=== PATIENT | male | born 2000 | race Caucasian/White ===

== ENCOUNTER 2021-01-14 20:35 | Emergency (ER) | payer OTHER, SELFPAY ==
[2021-01-14 20:46] VITALS: BP 148/77; PULSE 99; RESP 22; TEMP 36.5; O2SAT 99
[2021-01-14 21:02] LABS: Basophils Absolute Auto 0.1 K/mm3 (0.0-0.1); Basophils Percent Auto 0.5 % (0.2-1.2); Hematocrit 45.3 % (42.0-52.0); Hemoglobin 15.7 g/dL (14.0-18.0); Immature Granulocyte Absolute 0.06 K/mm3 (0.00-0.031); Immature Granulocyte Percent A 0.5 % (0-0.5); Lymphocytes Absolute Auto 0.88 K/mm3 (0.9-3.2); Mean Corpuscular HGB Conc 34.7 g/dl (32-36); Mean Corpuscular Hemoglobin 28.8 pg (26-34); Mean Corpuscular Volume 83.1 fl (80-100); Mean Platelet Volume 9.4 fl (7.4-10.4); Monocytes Absolute Auto 0.5 K/mm3 (0.1-0.6); Monocytes Percent Auto 4.4 % (2.6-8.5); Neutrophils Absolute Auto 9.5 K/mm3 (1.3-6.7); Neutrophils Percent Auto 86.6 % (45.5-73.1); Platelet Count Result 267 k/mm3 (150-375); Red Blood Count 5.45 M/mm3 (4.6-6.20); Red Cell Distribution Width 12.6 % (11.5-14.5)
[2021-01-14 21:24] LABS: Alanine Aminotransferase 40 U/L (4-50); Albumin Level 5.3 g/dL (3.7-5.6); Alkaline Phosphatase 104 U/L (58-237); Anion Gap 18 mmol/L (8-16); Aspartate Amino Transferase 65 U/L (17-59); Bilirubin,Total 1.7 mg/dL (0.2-1.3); Blood Urea Nitrogen 14 mg/dL (8-21); Calcium 10.3 mg/dL (8.9-10.7); Carbon Dioxide 17 mmol/L (22-30); Chloride 104 mmol/L (98-107); Estimated CRCL calculation 129 ml/min; Estimated Glomerular Filt Rate > 60; Glucose 138 mg/dL (75-110); Lipase 55 U/L (23-300); Potassium 4.1 mmol/L (3.4-5.0); Sodium 139 mmol/L (134-143)
[2021-01-14 21:37] VITALS: BP 129/76; PULSE 95; TEMP 36.4; O2SAT 100
--- NOTE | 2021-01-14 21:41 | PC.NURSE ---
EDMD presented to bedside.
--- NOTE | 2021-01-14 21:43 | ECG_ITS ---
Measurements Intervals [place] Rate: 77 P: 4 IN: 123 QRS: 87 QRSD: 117 T: 61 QT: 397 QTc: 450 Interpretive Statements SINUS RHYTHM WITH MARKED SINUS ARRHYTHMIA INCOMPLETE RIGHT BUNDLE BRANCH BLOCK ST ELEVATION IN ANTEROLAT/INF LEADS- PROBABLY EARLY REPOLARIZATION BORDERLINE ECG Electronically Signed On 01-15-2021 6:53:43 CDT by Mansoor Carbajal D.O.
--- NOTE | 2021-01-14 21:44 | ED.NAVMDI ---
HPI - Nausea/Vomiting/Diarrhea General Chief complaint: Nausea/Vomiting/Diarrhea Stated complaint: Vomiting Time Seen by Provider: 01/14/21 21:37 Source: patient Mode of arrival: ambulatory Limitations: no limitations History of Present Illness HPI Narrative: This is a 20 year old male who presents with his father for evaluation of nausea and vomiting. PAtient states this episode started 3 hours ago while eating dinner. He states he is unable to stop dry heaving and vomiting. He denies abdominal pain, fever, or diarrhea. His father states patient was assessed for similar symptoms 1 month ago at an outside hospital. He states patient had labs and CT scan performed which were negative. He uses THC , and his father states he thinks it is anxiety related. During patient last ER evaluation 1 month ago , he was given Ativan and haldol which resolved his symptoms. He has been taking oral zofran and reglan prior to coming to ER with out improvement of his symptoms. MD elicited complaint: nausea and vomiting Related Data Allergies Allergy/AdvReac Type Severity Reaction Status Date / Time No Known Allergies Allergy Mild Unverified 06/26/09 16:50 Review of Systems Review of Systems: All systems reviewed & are unremarkable except as noted in HPI and below PMFSH Past Medical History Medical History (Updated 01/15/21 @ 01:20 by Baylee Obrien MD) No significant medical problems Surgical History Surgical History (Updated 01/14/21 @ 21:48 by Baylee Obrien MD) No pertinent past surgical history Social History Social History (Updated 01/14/21 @ 21:48 by Baylee Obrien MD) Substance use type: marijuana Gender identity (if verbalized by the patient): Male Exam Const: General: alert Orientation/consciousness: patient oriented x3 Other: patient actively dry heaving Eyes: EOM: EOMs intact bilaterally Resp: Effort & Inspection: normal respiratory effort and no retractions Auscultation: clear to auscultation bilaterally Cardio: Rate: regular rate Rhythm: regular rhythm Heart sounds: no murmurs GI: GI Palp: Yes Soft to palpation, No Tenderness to palpation present (GI) and No Guarding due to palpation present (GI) Auscultation: normal bowel sounds Skin: General skin exam: normal color Rashes: no rashes Neuro: General: patient oriented x3, moves all extremities and CN's II-XI intact bilaterally Psych: Mental Status: mental status grossly normal Affect: normal affect Course Reevaluation(s) Reevaluation #1: Patient states he feels better. he denies nausea, vomiting abdominal pain. He has been able to tolerate PO. Father is at bedside. He states patient has appointment next week with doctor for evaluation. Date: 01/15/21 Time: 01:18 Vital Signs Vital signs: Vital Signs Temperature 97.7 F 01/14/21 20:46 Pulse Rate 99 01/14/21 20:46 Respiratory Rate 22 H 01/14/21 20:46 Blood Pressure 148/77 H 01/14/21 20:46 Pulse Oximetry 99 01/14/21 20:46 Temperature 97.6 F 01/14/21 21:37 Pulse Rate 103 H 01/14/21 22:05 Respiratory Rate 20 01/14/21 22:05 Blood Pressure 126/71 01/14/21 22:05 Pulse Oximetry 100 01/14/21 22:05 MDM - Nausea/Vomiting/Diarrhea Lab Data Attestation: I reviewed the patient's lab results. Result diagrams: 01/14/21 20:57 01/14/21 20:57 Labs: Lab Results 01/14/21 01/14/21 Range/Units 20:57 20:57 WBC 11.0 H (4.5-10.0) K/mm3 RBC 5.45 (4.6-6.20) M/mm3 Hgb 15.7 (14.0-18.0) g/dL Hct 45.3 (42.0-52.0) % MCV 83.1 (80-100) fl MCH 28.8 (26-34) pg MCHC 34.7 (32-36) g/dl RDW 12.6 (11.5-14.5) % Plt Count 267 (150-375) k/mm3 MPV 9.4 (7.4-10.4) fl Immature Gran % (Auto) 0.5 (0-0.5) % Neut % (Auto) 86.6 H (45.5-73.1) % Lymph % (Auto) 8.0 L (18.3-44.2) % [place] % (Auto) 4.4 (2.6-8.5) % Eos % (Auto) 0.0 (0-4.4) % Baso % (Auto) 0.5 (0.2-1.2) % Lymph # (Aut
[2021-01-14 22:00] VITALS: BP 126/71; PULSE 107; RESP 18; O2SAT 100
[2021-01-14 22:05] VITALS: BP 126/71; PULSE 103; RESP 20; O2SAT 100
[2021-01-14] MEDS: LACTATED RINGERS 1,000 ML 999 ML IV CONT (22:06)
[2021-01-14] MEDS: LORazepam INJ (*CRX) 2 MG/ML VIAL 1 MG IV PUSH (22:06)
[2021-01-14] MEDS: PANTOPRAZOLE SODIUM IV 40 MG VIAL IV PUSH (22:07)
[2021-01-14] MEDS: CAPSAICIN 0.025% CREAM 60 GM TUBE 1 APPLIC TOPICAL (22:52)
[2021-01-14] MEDS: HALOPERIDOL LACTATE 5 MG/ML VIAL IV PUSH (22:53)
--- NOTE | 2021-01-15 00:36 | PC.NURSE ---
pt on cart sleeping. Dad remains at bedside.
--- NOTE | 2021-01-15 01:07 | PC.NURSE ---
pt attempted to urinate and states his unable to. Pt tolerated po challenge well. No emesis or nausea noted.
--- NOTE | 2021-01-15 02:11 | PC.NURSE ---
pt resting on cart in its lowest position and states he feels better. no complaints or concerns voiced at this time. Dad remains at bedside.
[2021-01-15 02:12] VITALS: BP 107/77; PULSE 78; RESP 17; TEMP 37.2; O2SAT 99
[2021-01-15 02:14] VITALS: BP 107/77; PULSE 78; RESP 17; TEMP 37.2; O2SAT 99
== END 2021-01-15 02:16 | disposition home or self-care (01) ==
PROVIDERS: Emergency Medicine; Emergency Provider General Practice; PCP Pediatrics
DX: R11.2 Nausea with vomiting, unspecified (principal); I45.10 Unspecified right bundle-branch block; R94.31 Abnormal electrocardiogram [ECG] [EKG]
CPT/HCPCS: 36415; 80053; 83690; 85025; 93005; 96361; 96374; 96375; 99284; A9270; C9113; J1630; J2060; J7120

== ENCOUNTER 2021-01-16 14:55 | Emergency (ER) | payer OTHER, SELFPAY ==
[2021-01-16] VITALS (8 sets, daily range): BP systolic 118–145; BP diastolic 64–100; PULSE 96–135; RESP 18–37; TEMP 36.3; O2SAT 96–100
[2021-01-16 15:21] LABS: Basophils Percent Auto 0.2 % (0.2-1.2); Eosinophils Percent Auto 0.1 % (0-4.4); Hematocrit 44.8 % (42.0-52.0); Hemoglobin 15.2 g/dL (14.0-18.0); Immature Granulocyte Absolute 0.03 K/mm3 (0.00-0.031); Immature Granulocyte Percent A 0.4 % (0-0.5); Lymphocytes Absolute Auto 1.32 K/mm3 (0.9-3.2); Lymphocytes Percent Auto 15.5 % (18.3-44.2); Mean Corpuscular HGB Conc 33.9 g/dl (32-36); Mean Corpuscular Hemoglobin 28.6 pg (26-34); Mean Corpuscular Volume 84.4 fl (80-100); Mean Platelet Volume 9.4 fl (7.4-10.4); Monocytes Absolute Auto 0.5 K/mm3 (0.1-0.6); Monocytes Percent Auto 5.3 % (2.6-8.5); Neutrophils Absolute Auto 6.7 K/mm3 (1.3-6.7); Neutrophils Percent Auto 78.5 % (45.5-73.1); Platelet Count Result 258 k/mm3 (150-375); Red Blood Count 5.31 M/mm3 (4.6-6.20); White Blood Count 8.5 K/mm3 (4.5-10.0)
[2021-01-16 15:44] LABS: Alanine Aminotransferase 32 U/L (4-50); Alkaline Phosphatase 97 U/L (58-237); Anion Gap 19 mmol/L (8-16); Bilirubin,Total 0.9 mg/dL (0.2-1.3); Blood Urea Nitrogen 10 mg/dL (8-21); Carbon Dioxide 15 mmol/L (22-30); Chloride 108 mmol/L (98-107); Estimated Glomerular Filt Rate > 60; Glucose 114 mg/dL (75-110); Lipase 70 U/L (23-300); Potassium 3.7 mmol/L (3.4-5.0); Sodium 142 mmol/L (134-143)
[2021-01-16 15:54] LABS: Aspartate Amino Transferase 54 U/L (17-59)
[2021-01-16] MEDS: HALOPERIDOL LACTATE 5 MG/ML VIAL 10 MG IV PUSH (16:27)
[2021-01-16] MEDS: diphenhydrAMINE HCl INJ 50 MG/ML VIAL 25 MG IV PUSH (16:44)
--- NOTE | 2021-01-16 16:50 | PC.NURSE ---
Called to patients phone per Dad, patient is sitting up in stretcher at this time. Patients jaw is clenched, red faced and diaphoretic with heart rate in 140s. Notified Dr. Mayer at nursing station gave verbal order for benadryl 25 [address] time[address] Pena called to room to assess patient after exiting another room, no other new orders at this time.
--- NOTE | 2021-01-16 17:22 | ED.NAVMDI ---
HPI - Nausea/Vomiting/Diarrhea General Chief complaint: Nausea/Vomiting/Diarrhea Stated complaint: nausea and vomiting Time Seen by Provider: 01/16/21 16:26 Source: patient and family Mode of arrival: ambulatory Limitations: clinical condition History of Present Illness HPI Narrative: 20-year-old male Presents with complaint of intractable vomiting Apparently there was one earlier visit for this several weeks ago elsewhere and another here the day before yesterday All have been associated with either smoking or using edible cannabis products, although their understanding from the last visit was more along the lines of gastritis Apparently he has been using this to manage stress associated with college at [employer], and he reports that he does not experience such unpleasant side effects 100% of the time, and he is aware of home remedies such as hot showers but has not tried them After being discharged in the wee hours of the morning he did again smoke some pot yesterday Today he is been retching dozens of times and really nothing is coming up here in the ED Related Data Home Medications Medication Instructions Recorded Confirmed Zoloft 01/16/21 Allergies Allergy/AdvReac Type Severity Reaction Status Date / Time No Known Allergies Allergy Mild Unverified 06/26/09 16:50 Review of Systems Review of Systems: All systems reviewed & are unremarkable except as noted in HPI and below Constitutional: Constitutional: Reports no additional constitutional complaints, Denies chills, Denies fever(s), Denies headache(s) and Reports weakness Eyes: Eyes: Reports no additional eye complaints and Denies change in vision ENT: Denies headache(s) and Denies sore throat Cardiovascular: Cardiovascular: Denies chest pain and Denies dyspnea Respiratory: Respiratory: Denies cough and Denies dyspnea Gastrointestinal: Gastrointestinal: Reports abdominal pain, Denies bloating, Denies constipation, Reports heartburn, Denies diarrhea, Reports nausea and Reports vomiting Genitourinary: Genitourinary: Denies dysuria and Denies urinary frequency Musculoskeletal: Musculoskeletal: Denies myalgias, Denies deformity, Denies arthralgias, Denies joint swelling and Denies numbness Integumentary/Breasts: Skin/Breast: Denies rash and Denies wounds Neurologic: Denies headache(s), Denies focal weakness and Denies numbness Psychiatric: Psychiatric: Reports anxiety Endocrine: Endocrine: Reports no additional endocrine complaints Hematologic/Lymphatic: Hematologic/Lymphatic: Reports no additional hematologic/lymphatic complaints Allergic/Immunologic: Allergic/Immunologic: Reports no additional allergic/immunologic complaints [facility] Past Medical History Medical History (Updated 01/16/21 @ 17:31 by Samir Pena MD) No significant medical problems Surgical History Surgical History (Updated 01/14/21 @ 21:48 by Baylee Obrien MD) No pertinent past surgical history Social History Social History (Updated 01/14/21 @ 21:48 by Baylee Obrien MD) Substance use type: marijuana Gender identity (if verbalized by the patient): Male Exam Const: General: cooperative and alert Nutritional Appearance: thin Orientation/consciousness: patient oriented x3 (alert) Other: Distressed HENMT: Head: normocephalic and atraumatic Ears: external ears normal General nose exam: no epistaxis Other: Experiencing a moderately bad dystonic reaction with grinding of his teeth and drooling Eyes: Conjunctivae: conjunctivae normal EOM: EOMs intact bilaterally Neck: Neck: supple and no JVD Chest: Chest palpation & inspection: normal inspection of the chest Resp: Effort & Inspection: not labored Auscultation: clear to auscultation bilaterally and other (BS =) Other: Hyperventilating Cardio: Rate: regular rate and tachycardic Rhythm: regular rhythm GI: Inspection: non-distended GI Palp: Yes Soft to palpation, No Tenderness to palpa
[2021-01-16] MEDS: LACTATED RINGERS 1,000 ML 999 ML IV CONT (17:37)
== END 2021-01-16 18:44 | disposition home or self-care (01) ==
PROVIDERS: Emergency Medicine; Emergency Provider Emergency Medicine; PCP Pediatrics
DX: R11.11 Vomiting without nausea (principal); F12.10 Cannabis abuse, uncomplicated; R06.4 Hyperventilation; G24.09 Other drug induced dystonia
CPT/HCPCS: 36415; 80053; 83690; 85025; 96361; 96374; 96375; 99284; J1200; J1630; J7120

== ENCOUNTER 2021-01-17 12:29 | Inpatient (IN) | payer OTHER, SELFPAY ==
[2021-01-17] VITALS (13 sets, daily range): BP systolic 93–144; BP diastolic 35–116; PULSE 93–153; RESP 16–43; TEMP 36.7–36.9; O2SAT 94–99; BMI 21.4
--- NOTE | ~2021-01-17 | XR_ITS ---
EXAMINATION: XR chest 1V portable INDICATION: Tachypnea, medication reaction TECHNIQUE: Portable AP chest at 1520 hours COMPARISON: 06/06/2009 FINDINGS: The lungs are free of acute opacities. There is no pleural effusion or pneumothorax. The ca rdiomediastinal silhouette is normal. Old right-sided rib fractures are noted. IMPRESSION: 1. No acute cardiopulmonary abnormality. Reviewed, dictated and finalized at location A.
--- NOTE | 2021-01-17 12:48 | ECG_ITS ---
Measurements Intervals [place] Rate: 129 P: 82 CO: 120 QRS: 84 QRSD: 122 T: 63 QT: 287 QTc: 420 Interpretive Statements SINUS TACHYCARDIA INCOMPLETE RIGHT BUNDLE BRANCH BLOCK PEAKED T WAVES- CONSIDER HYPERKALEMIA OR ISCHEMIA BASELINE WANDER- II, III, AVL, AVF ABNORMAL ECG Electronically Signed On 01-17-2021 13:53:18 CDT by Mansoor Carbajal D.O.
--- NOTE | 2021-01-17 12:49 | ED.PSYCH ---
HPI - Psych General Chief Complaint: Allergic Reaction Stated Complaint: reaction to haldol Time Seen by Provider: 01/17/21 12:41 History of Present Illness HPI Narrative: 20 yo male w/ h/o CVS presents to the ED for a possible medication reaction. He wa seen here for nausea and vomiting. He was given haldol and ativan which has worked for him in the past. He had a reaction which responded to benadryl. He awoke this morning with involuntary contraction of all extremities and his trunk. This cause diffuse pain. No nausea, vomiting, fever, confusion. He usses canbis, denies any additional drugs. Related Data Home Medications Medication Instructions Recorded Confirmed Zoloft 01/16/21 Allergies Allergy/AdvReac Type Severity Reaction Status Date / Time No Known Allergies Allergy Mild Verified 01/17/21 12:47 Review of Systems Review of Systems: All systems reviewed & are unremarkable except as noted in HPI and below Constitutional: Constitutional: Denies chills and Denies fever(s) ENT: Reports system reviewed and no additional complaints, except as documented Cardiovascular: Cardiovascular: Denies chest pain Respiratory: Respiratory: Denies dyspnea Gastrointestinal: Gastrointestinal: Reports as per HPI Genitourinary: Genitourinary: Reports no additional male genitourinary complaints Musculoskeletal: Musculoskeletal: Reports as per HPI Neurologic: Reports as per HPI Psychiatric: Psychiatric: Reports anxiety [facility] Past Medical History Medical History Cyclical vomiting No significant medical problems Surgical History Surgical History No pertinent past surgical history Social History Social History Substance use type: marijuana Gender identity (if verbalized by the patient): Male Exam Const: Other: moderate distress. diaphoretic. uncomfortable Eyes: Pupils: Equal, round and reactive pupils present EOM: EOMs intact bilaterally Neck: Neck: normal visual inspection Chest: Chest palpation & inspection: normal inspection of the chest Resp: Effort & Inspection: tachypneic Auscultation: clear to auscultation bilaterally Cardio: Rate: tachycardic GI: GI Palp: Yes Soft to palpation and No Tenderness to palpation present (GI) Skin: General skin exam: normal color Wounds: no wounds Other: diaphoretic Neuro: General: patient oriented x3 and moves all extremities Speech: normal speech Extrem: Other: increased muscle tone throughout Course Vital Signs Vital signs: Vital Signs Temperature 36.8 C 01/17/21 12:39 Pulse Rate 135 H 01/17/21 12:39 Respiratory Rate 43 H 01/17/21 12:39 Blood Pressure 136/116 H 01/17/21 12:39 Pulse Oximetry 98 01/17/21 12:39 Temperature 36.7 C 01/17/21 12:50 Pulse Rate 104 H 01/17/21 19:27 Respiratory Rate 16 01/17/21 19:27 Blood Pressure 109/58 L 01/17/21 19:27 Pulse Oximetry 98 01/17/21 19:27 MDM - Psych MDM Narrative Medical decision making narrative: His symptoms resolve with treatment, but have returned each time and are enough to cause significant metabolic abnormalities. I will admit for observation. Discussed with Shira Differential Diagnosis Differential diagnosis: Likely other (Anxiety, dystonic reaction, sepsis, toxic ingestion) Medical Records Attestation: I reviewed the patient's medical records. Lab Data Attestation: I reviewed the patient's lab results. Result diagrams: 01/17/21 12:54 01/17/21 19:27 Labs: Lab Results 01/17/21 01/17/21 01/17/21 Range/Units 12:53 12:53 12:53 WBC (4.5-10.0) K/mm3 RBC (4.6-6.20) M/mm3 Hgb (14.0-18.0) g/dL Hct (42.0-52.0) % MCV (80-100) fl MCH (26-34) pg MCHC (32-36) g/dl RDW (11.5-14.5) % Plt Count (150-375) k/mm3 MPV (7
[2021-01-17] MEDS: LORazepam INJ (*CRX) 2 MG/ML VIAL 1 MG IV PUSH ×2 (12:58→17:26)
[2021-01-17] MEDS: MAGNESIUM SULF 2 GM/WATER 50ML 2 GM/50 ML BAG IVPB (12:58)
[2021-01-17] MEDS: SODIUM CHLORIDE 0.9% IV 1,000 ML 999 ML IV CONT ×3 (12:59→16:13)
[2021-01-17 13:01] LABS: Basophils Absolute Auto 0.1 K/mm3 (0.0-0.1); Basophils Percent Auto 0.5 % (0.2-1.2); Eosinophils Percent Auto 0.4 % (0-4.4); Hematocrit 48.7 % (42.0-52.0); Hemoglobin 15.8 g/dL (14.0-18.0); Immature Granulocyte Absolute 0.05 K/mm3 (0.00-0.031); Immature Granulocyte Percent A 0.5 % (0-0.5); Lymphocytes Absolute Auto 2.08 K/mm3 (0.9-3.2); Mean Corpuscular HGB Conc 32.4 g/dl (32-36); Mean Corpuscular Hemoglobin 28.9 pg (26-34); Mean Platelet Volume 9.5 fl (7.4-10.4); Monocytes Absolute Auto 0.5 K/mm3 (0.1-0.6); Monocytes Percent Auto 4.9 % (2.6-8.5); Neutrophils Absolute Auto 8.2 K/mm3 (1.3-6.7); Neutrophils Percent Auto 74.7 % (45.5-73.1); Platelet Count Result 297 k/mm3 (150-375); Red Blood Count 5.47 M/mm3 (4.6-6.20); Red Cell Distribution Width 13.1 % (11.5-14.5)
[2021-01-17 13:21] LABS: Anion Gap 24 mmol/L (8-16); Blood Urea Nitrogen 11 mg/dL (8-21); Calcium 10.2 mg/dL (8.9-10.7); Carbon Dioxide 16 mmol/L (22-30); Chloride 106 mmol/L (98-107); Estimated CRCL calculation 110 ml/min; Estimated Glomerular Filt Rate > 60; Glucose 139 mg/dL (75-110); Sodium 146 mmol/L (134-143)
[2021-01-17 14:00] LABS: Potassium 4.7 mmol/L (3.4-5.0)
[2021-01-17] MEDS: diphenhydrAMINE HCl INJ 50 MG/ML VIAL IV PUSH (14:29)
--- NOTE | 2021-01-17 14:29 | PC.NURSE ---
pt breathing 54 times a min. encouraged to slow breathing. body tense. father holding pt hand. benadryl given as ordered. resp at bedside to draw abgs.
[2021-01-17 14:34] LABS: Base Excess ABG -16.6 mEq/l (+/-2.0); Fractional Inspired Oxygen 21 %; HCO3 ABG 10.6 mEq/l (22.0-26.0); Oxygen Content ABG 21.3 %vol (16.0-22.0); Oxygen Saturation ABG 97.5 % (95.0-100.0); Oxyhemoglobin 96.6 % THb (90.0-100.0); PCO2 ABG 29.9 mmHg (35.0-45.0); PO2 ABG 121.5 mmHg (80.0-100.0); PO2 FiO2 Ratio Arterial Blood 5.79 %; Total Hemoglobin 15.6 g/dL (12.0-18.0)
[2021-01-17 14:35] LABS: pH ABG 7.167 (7.350-7.450)
--- NOTE | 2021-01-17 15:02 | PC.NURSE ---
patient attempted to give urine sample at this time, patient declines straight cath
[2021-01-17 15:40] LABS: INR 1.1
[2021-01-17 15:41] LABS: Partial Thromboplastin Time 24.4 SECONDS (22.3-36.8)
[2021-01-17 15:43] LABS: CRP < 0.5 mg/dL (<1.0)
[2021-01-17 16:05] LABS: Add Urine Microscopic? YES; Appearance Urine Clear (Clear); Bilirubin Urine Negative (Negative); Blood Urine Negative (Negative); Color Urine Yellow (Yellow); Glucose Urine UA Negative (Negative); Ketones Urine 1+ mg/dL (Negative); Leukocyte Esterase Ur Negative LEU/UL (Negative); Mucus Urine Rare /lpf; Nitrate Urine Negative (Negative); Protein Urine 2+ mg/dL (Negative); RBC Urine 0-2 /hpf (0-2); Specific Grav Ur 1.019 (1.001-1.035); Urobilinogen Urine Negative mg/dL (<2.0); WBC Urine 0-3 /hpf
[2021-01-17 16:09] LABS: Lactic Acid Reflex 3.4 mmol/L (0.7-2.1)
[2021-01-17 16:10] LABS: Ethanol < 10 mg/dL (<10)
[2021-01-17 16:15] LABS: Amphetamine Screen Urine Negative (Negative); Barbiturate Screen Urine Negative (Negative); Benzodiazepines Screen Urine Negative (Negative); Cannabinoid Screen Urine Positive (Negative); Cocaine Screen Urine Negative (Negative); Methadone Screen Urine Negative (Negative); Opiate Screen Urine Negative (Negative); Phencyclidine Screen Urine Negative (Negative)
--- NOTE | 2021-01-17 16:25 | PC.NURSE ---
called Nirmal gandhi, added on (for the third time) the Salic and Acetamin, 1626. Said they would run it off tube used for etOH
[2021-01-17 16:34] LABS: Acetaminophen < 10 ug/mL (10-30); Salicylate < 1.0 mg/dL (2-20)
--- NOTE | 2021-01-17 17:50 | PC.NURSE ---
called chemistry @0732 to add mg
[2021-01-17 17:59] LABS: Magnesium 2.8 mg/dL (1.6-2.3)
--- NOTE | 2021-01-17 18:05 | PC.NURSE ---
called Nirmal gandhi, asked him to unreceive the CK and MG that were accidently scanned (the ones we had called about earlier). He said the MG was already running and he would add on the CK. The TSH Reflex has been sent down. Will call about new add ons momentarily.
--- NOTE | 2021-01-17 18:30 | PM.IMHP ---
H&P: HPI History of Present Illness Date/Time: 01/17/21 18:30 Chief Complaint: Concerns for a reaction to Haldol. Narrative: This is a 20-year-old male with anxiety who presented to the emergency department earlier today with his father with concerns for a reaction to Haldol. This will be his 3rd trip to the emergency department in the last 3 days. He was seen in the emergency department on the and with complaints of nausea and vomiting. Apparently he had been seen at an outside facility 1 month prior to these visits under similar circumstances and was told that his THC use was probably a contributing factor. He was given Ativan and Haldol which resolved his symptoms and he was given both of those during these 2 visits with improvement. However last night he reportedly had a dystonic reaction after receiving Haldol with grinding of his teeth with severe muscle cramps and uncontrollable muscle movements. Symptoms subsided after receiving IV Benadryl and he was able to be discharged home. He awoke this morning and has had intermittent involuntary contractions of his extremities and trunk that is causing him quite a bit of pain. During my interview he has intermittent episodes where he seems to contract the muscles of his extremities and trunk to the point where he becomes diaphoretic and he starts to hyperventilate thereafter. I am able to instruct him to slow down his breathing and relax with improvement in his symptoms. He has never had similar symptoms in the past and has no history of seizures. Aside from vaping THC he denies drug use and any other ingestions. No fever, chills, sweats, paranoia, confusion, focal weakness, auditory visual changes, paresthesias, chest pain, or shortness of breath. He is not currently having any nausea and denies emesis today. Of note he was started on sertraline 150 milligrams daily about 3 weeks ago and has an upcoming appointment with the psychiatrist and therapist for his anxiety. Up until the sertraline was added to his regimen, he was using THC exclusively for his anxiety. Review of Systems Review of Systems: Narrative: Twelve systems were reviewed with pertinent positives and negatives as per HPI. No sinus congestion, rhinorrhea, otalgia, or odynophagia. He denies headache and neck ache. No chest pain, pleuritic pain, or palpitations. He will occasionally have feelings of a racing heart. No hematemesis. He denies diarrhea and constipation. No dysuria. He has not had any tattoos or piercings. No recent cuts or puncture wounds. He is up-to-date on his tetanus shots. Except as documented, all other systems were reviewed and are negative. [facility] Past Medical History Medical History (Updated 01/17/21 @ 22:51 by Meghann Reed PA-C) Anxiety Bacterial meningitis (2001) At age 4 months. Tetrahydrocannabinol (THC) dependence Surgical History Surgical History (Updated 01/17/21 @ 22:39 by Meghann Reed PA-C) No history of previous surgery Family History Family History Mother Hyperlipemia Father Hyperlipemia Social History Social History (Updated 01/17/21 @ 22:41 by Meghann Reed PA-C) Social History: Surrogate decision maker: Donovan Chandler, father. Code status: Full code. Smoking status: Current every day smoker Tobacco type: e-cigarettes/vaping Alcohol intake: current Drinks per week: 4 Substance use: current Substance use type: marijuana and other Other substance usage details: Vapes Delta 9 THC for several weeks, previously used Delta 8 THC. Last use: 01/16/2021 Additional living arrangements comments: The patient lives in [place] with his family. He is a student at [employer]. Additional occupation/education comments: Student at [employer]. Gender identity (if verbalized by the patient): Male Spiritual care concerns: No Meds Home Medications and All
[2021-01-17 18:31] LABS: Creatine Kinase 418 U/L (55-170)
--- NOTE | 2021-01-17 18:32 | PC.NURSE ---
called labNicholas, added on PT INR PTT and Hepatic 183
[2021-01-17 18:47] LABS: Partial Thromboplastin Time 25.5 SECONDS (22.3-36.8); Prothrombin Time 13.9 Seconds (11.1-14.7)
[2021-01-17 18:55] LABS: Reflex Lactic Acid Yes or No Add Lactic
[2021-01-17 19:09] LABS: Thyroid Stimulating Hormone Reflex 0.956 uIU/mL (0.465-4.68)
[2021-01-17 19:13] LABS: Alanine Aminotransferase 28 U/L (4-50); Albumin Level 4.6 g/dL (3.7-5.6); Alkaline Phosphatase 88 U/L (58-237); Aspartate Amino Transferase 48 U/L (17-59); Bilirubin,Total 0.5 mg/dL (0.2-1.3)
[2021-01-17 19:41] LABS: Alveolar/Arterial O2 Gradient 22.5 mmHg; Base Excess ABG -3.7 mEq/l (+/-2.0); Carboxyhemoglobin 0.3 % THb (0-2.0); Fractional Inspired Oxygen 21 %; HCO3 ABG 20.8 mEq/l (22.0-26.0); Methemoglobin ABG 0.5 %THb (0-1.5); Oxygen Saturation ABG 96.2 % (95.0-100.0); Oxyhemoglobin 95.1 % THb (90.0-100.0); PO2 ABG 84.1 mmHg (80.0-100.0); Reduced Hemoglobin 4.1 %THb (0-5.0); Total Hemoglobin 13.4 g/dL (12.0-18.0)
[2021-01-17 19:42] LABS: Device ROOM AIR; Modified Allen's Test Pass; Site Drawn RIGHT RADIAL
[2021-01-17 19:47] LABS: Lactic Acid Reflex 0.9 mmol/L (0.7-2.1)
[2021-01-17 19:48] LABS: Anion Gap 9 mmol/L (8-16); Blood Urea Nitrogen 9 mg/dL (8-21); Calcium 8.2 mg/dL (8.9-10.7); Carbon Dioxide 22 mmol/L (22-30); Chloride 110 mmol/L (98-107); Estimated CRCL calculation 122 ml/min; Estimated Glomerular Filt Rate > 60; Glucose 79 mg/dL (75-110); Potassium 3.5 mmol/L (3.4-5.0); Sodium 141 mmol/L (134-143)
--- NOTE | 2021-01-17 21:57 | ADMIMU ---
This patient, Genny Chandler, was admitted to IMU status, and placed in Intensive Care Unit-1 at 2140 on 01/17/2021 . Patient/family oriented to hospital policies and general routines including ID bracelet, bed and alarms, visiting hours, pain management, procedures, bathroom and other care routines, personal items, smoking policy, room service/diet, and visiting hours. Valuables list has been completed. Information on how to activate the Rapid Response Team has been discussed. Patient/Family are encouraged to report perceived risks to care and to ask questions if they do not understand what they are told or what they should do.
[2021-01-17] MEDS: diazePAM (*CRX) 5 MG TABLET PO (23:54)
[2021-01-17] MEDS: LACTATED RINGERS 1,000 ML 100 ML IV CONT (23:54)
[2021-01-18] VITALS (7 sets, daily range): BP systolic 113–127; BP diastolic 64–83; PULSE 59–88; RESP 16–20; TEMP 36.2–36.8; O2SAT 96–100
[2021-01-18 05:21] LABS: Hematocrit 40.5 % (42.0-52.0); Hemoglobin 13.2 g/dL (14.0-18.0); Mean Corpuscular HGB Conc 32.6 g/dl (32-36); Mean Corpuscular Hemoglobin 28.8 pg (26-34); Mean Corpuscular Volume 88.2 fl (80-100); Mean Platelet Volume 9.6 fl (7.4-10.4); Platelet Count Result 184 k/mm3 (150-375); Red Blood Count 4.59 M/mm3 (4.6-6.20); Red Cell Distribution Width 12.8 % (11.5-14.5); White Blood Count 8.9 K/mm3 (4.5-10.0)
[2021-01-18 05:30] LABS: Lactic Acid Reflex 0.7 mmol/L (0.7-2.1)
[2021-01-18 05:37] LABS: Alanine Aminotransferase 23 U/L (4-50); Albumin Level 3.9 g/dL (3.7-5.6); Alkaline Phosphatase 66 U/L (58-237); Anion Gap 10 mmol/L (8-16); Aspartate Amino Transferase 49 U/L (17-59); Bilirubin,Total 0.8 mg/dL (0.2-1.3); Blood Urea Nitrogen 10 mg/dL (8-21); Calcium 8.7 mg/dL (8.9-10.7); Carbon Dioxide 22 mmol/L (22-30); Chloride 107 mmol/L (98-107); Creatine Kinase 1055 U/L (55-170); Estimated CRCL calculation 124 ml/min; Estimated Glomerular Filt Rate > 60; Glucose 71 mg/dL (75-110); Magnesium 2.1 mg/dL (1.6-2.3); Potassium 3.7 mmol/L (3.4-5.0); Sodium 139 mmol/L (134-143)
[2021-01-18 06:09] LABS: Thyroid Stimulating Hormone Reflex 0.795 uIU/mL (0.465-4.68)
[2021-01-18 06:36] LABS: Glucose Point of Care 85 (65-105)
[2021-01-18] MEDS: diazePAM (*CRX) 5 MG TABLET PO ×3 (06:46→22:15)
[2021-01-18 08:00] LABS: Device ROOM AIR
[2021-01-18] MEDS: LACTATED RINGERS 1,000 ML 100 ML IV CONT ×2 (09:27→18:24)
--- NOTE | 2021-01-18 10:06 | WPDNEURCNPN ---
Assessment and Plan Assessment and plan (1) Tetrahydrocannabinol (THC) dependence: Code(s): F12.20 - Cannabis dependence, uncomplicated Status: Acute (2) Anxiety: Code(s): F41.9 - Anxiety disorder, unspecified Status: Acute Additional Plan Stable neurologically did well overnight on the medication all the pros and cons of drugs discussed with him in front of his mother no further intervention as for the Neurology is concerned necessary Consult date: 01/18/21 Time Seen: 10:30 HPI: Genny Chandler is a 20 year old male admitted to the hospital through the emergency room where he presented with his father with concerns for reaction to Haldol this will be his 3rd trip to the emergency department in the last 3 days he had been seen on and with complaints of nausea and vomiting had been seen at an outside facility 1 month prior to this visits under similar circumstances and was told that his THS THC was probably contributing factor he was given Ativan and Haldol which resolved his symptom and he was given both of those during these 2 visits with improvement as well however last night she reportedly had a dystonic reaction after receiving Haldol with grinding of his teeth severe muscle cramps and uncontrollable muscle movements symptomatology subsided after receiving IV Benadryl he was able to be discharged home he awoke in the morning and has severe muscle cramps and uncontrollable my muscle movements he was admitted to the hospital with at the time of admission by the hospital he was noted PMFSH Past Medical History Medical History Anxiety Bacterial meningitis (2001) At age 4 months. Tetrahydrocannabinol (THC) dependence Surgical History Surgical History No history of previous surgery Family History Family History Mother Hyperlipemia Father Hyperlipemia Social History Social History Social History: Surrogate decision maker: Donovan Chandler, father. Code status: Full code. Smoking status: Current every day smoker Tobacco type: e-cigarettes/vaping Alcohol intake: current Drinks per week: 4 Substance use: current Substance use type: marijuana and other Other substance usage details: Vapes Delta 9 THC for several weeks, previously used Delta 8 THC. Last use: 01/16/2021 Additional living arrangements comments: The patient lives in [place] with his family. He is a student at [employer]. Additional occupation/education comments: Student at [employer]. Gender identity (if verbalized by the patient): Male Spiritual care concerns: No Meds Home Medications and Allergies Home Medications Medication Instructions Recorded Confirmed Type sertraline [Zoloft] 150 mg PO DAILY 01/18/21 01/18/21 History Allergies Allergy/AdvReac Type Severity Reaction Status Date / Time haloperidol [From Haldol] Allergy Intermediate Muscle Verified 01/18/21 10:42 Spasms Vital Signs Vital Signs - 24 hr 01/17/21 12:39 01/17/21 12:50 01/17/21 13:41 Temperature 36.8 C 36.7 C Pulse Rate 135 H 153 H 95 Respiratory Rate 43 H 40 H 21 H Blood Pressure 136/116 H 144/65 H 96/35 L Pulse Oximetry 98 96 94 01/17/21 13:56 01/17/21 15:08 01/17/21 16:15 Temperature Pulse Rate 93 118 H 105 H Respiratory Rate 21 H 27 H 25 H Blood Pressure 93/35 L 107/48 L 109/50 L Pulse Oximetry 94 97 96 01/17/21 17:43 01/17/21 18:34 01/17/21 19:27 Temperature Pulse Rate 104 H 115 H 104 H Respiratory Rate 25 H 27 H 16 Blood Pressure 105/66 119/60 109/58 L Pulse Oximetry 98 96 98 01/17/21 21:23 01/17/21 21:45 01/17/21 21:50 Temperature 36.9 C Pulse Rate 101 H 102 H Respiratory Rate 18 24 H Blood Pressure 134/65 130/73 Pulse Oximetry 99 97 96 01/17/21 22:0
--- NOTE | 2021-01-18 10:32 | PC.NURSE ---
Spoke with Dr. French regarding patient having increase anxiety and panic feeling . New order for 0.25 PO Xanax PRN q8h for increased anxiety
[2021-01-18] MEDS: SERTRALINE HCL 50 MG TABLET 150 MG PO (10:37)
[2021-01-18] MEDS: ALPRAZolam (*CRX) 0.25 MG TABLET (10:38)
--- NOTE | 2021-01-18 10:41 | WPDINTPN ---
Progress Note: A&P Assessment and Plan (1) Metabolic acidosis: Code(s): E87.2 - Acidosis Status: Acute Assessment and Plan: Improved with rehydration bicarb is 22 today Lactate has normalized (2) Muscle spasm: Code(s): M62.838 - Other muscle spasm Status: Acute Assessment and Plan: Not sure what exactly the etiology is at this point. Acute dystonia secondary to haloperidol is a likely possibility. Patient also has history of synthetic marijuana use Presentation not consistent with serotonin syndrome or neuroleptic malignant syndrome. Patient was given Valium and started on IV fluids and symptoms have resolved at this time. Patient is normothermic and has no muscular rigidity Neurology's is consulted (3) Anxiety: Code(s): F41.9 - Anxiety disorder, unspecified Status: Acute Assessment and Plan: Patient was started on Valium 5 mg every 8 hours on admission and patient has done well and denies any complaints at this time Zoloft was resumed (4) Elevated creatine kinase: Code(s): R74.8 - Abnormal levels of other serum enzymes Status: Acute Assessment and Plan: Mild rhabdomyolysis. With CK and 1000s Continue IV fluids Recheck CK level in the morning (5) Tetrahydrocannabinol (THC) dependence: Code(s): F12.20 - Cannabis dependence, uncomplicated Status: Acute Assessment and Plan: Encouraged to avoid using synthetic THC Additional Plan SCD Subjective Date/time seen: 01/18/21 This morning patient states he feels better and denies any complaints today. He states that his symptoms have resolved and he slept well at night. He denies feeling anxious at this time or any nausea vomiting. He he told me that he is waiting for his breakfast arrive. He did admit to having suicidal ideation 1 month ago when he was having a panic episode but denies any suicide attempts. He also states that he does not feel suicidal at this time. Denies any homicidal ideation. He states he has being taking Zoloft for anxiety for last 5 years. He feels that he had a side effect from Haldol that he was given in the ER on Sunday. Patient is afebrile has stable vital signs overnight Review of Systems Review of Systems: All systems reviewed & are unremarkable except as noted in HPI and below Exam Narrative: Exam Narrative: General: Pt is alert awake and in NAD Lungs/Chest: Trachea central Clear BS B/L, No crackles or wheezing. Cardiac: RRR. Normal S1 S2. No murmurs Circulation: Pedal pulses are intact and symmetrical. Abdomen: Normal bowel sounds.. Soft. NT. ND. Extremities: No clubbing, cyanosis or edema. Warm : Witt in place Neurologic: Follows commands. Moves all 4 extremities PERRL no tremors no rigidity of muscles, extraocular muscles are intact, Skin: No Rash patient has some excoriation on his nasal bridge Objective Data Vital Signs Vital Signs: Vital Signs - 24 hr 01/17/21 12:39 01/17/21 12:50 01/17/21 13:41 Temperature 36.8 C 36.7 C Pulse Rate 135 H 153 H 95 Respiratory Rate 43 H 40 H 21 H Blood Pressure 136/116 H 144/65 H 96/35 L Pulse Oximetry 98 96 94 01/17/21 13:56 01/17/21 15:08 01/17/21 16:15 Temperature Pulse Rate 93 118 H 105 H Respiratory Rate 21 H 27 H 25 H Blood Pressure 93/35 L 107/48 L 109/50 L Pulse Oximetry 94 97 96 01/17/21 17:43 01/17/21 18:34 01/17/21 19:27 Temperature Pulse Rate 104 H 115 H 104 H Respiratory Rate 25 H 27 H 16 Blood Pressure 105/66 119/60 109/58 L Pulse Oximetry 98 96 98 01/17/21 21:23 01/17/21 21:45 01/17/21 21:50 Temperature 36.9 C Pulse Rate 101 H 102 H Respiratory Rate 18 24 H Blood Pressure 134/65 130/73 Pulse Oximetry 99 97 96 01/17/21 22:00 01/18/21 00:00 01/18/21 02:00 Temperature 36.8 C Pulse Rate 100 88 84 Respiratory Rate 20 Blood Pressure 127/83 Pulse Oximetry 96 01/18/21 04:00 01/18/21 06:00 01/18/21 08:00 Temperature 36.4 C 3
--- NOTE | 2021-01-18 13:13 | PC.NURSE ---
This patient, Genny Chandler, was transferred to [[id number] ] on 01/18/21 at 1305. Personal belongings sent with patient. Report given to [LUIS Motley @ [phone]]. Appropriate documentation sent with patient.
[2021-01-18] MEDS: NICOTINE (*PBKC) 14 MG PATCH 1 PATCH TRANSDERM (17:27)
[2021-01-18] MEDS: ALPRAZolam (*CRX) 0.25 MG TABLET PO (18:24)
[2021-01-18] MEDS: NICOTINE (*PBKC) 21 MG PATCH 1 PATCH TRANSDERM (21:34)
[2021-01-18] MEDS: MELATONIN 5 MG TABLET PO (23:36)
[2021-01-19 05:44] VITALS: BP 123/64; PULSE 83; RESP 17; TEMP 36.1; O2SAT 100
[2021-01-19] MEDS: LACTATED RINGERS 1,000 ML 100 ML IV CONT ×2 (05:45→16:09)
[2021-01-19] MEDS: diazePAM (*CRX) 5 MG TABLET PO ×3 (05:45→22:31)
[2021-01-19 05:56] LABS: Hematocrit 38.2 % (42.0-52.0); Mean Corpuscular Hemoglobin 28.9 pg (26-34); Mean Corpuscular Volume 84.9 fl (80-100); Mean Platelet Volume 9.6 fl (7.4-10.4); Platelet Count Result 180 k/mm3 (150-375); Red Cell Distribution Width 12.7 % (11.5-14.5)
[2021-01-19 06:06] LABS: Alanine Aminotransferase 26 U/L (4-50); Albumin Level 3.7 g/dL (3.7-5.6); Alkaline Phosphatase 56 U/L (58-237); Anion Gap 6 mmol/L (8-16); Aspartate Amino Transferase 53 U/L (17-59); Bilirubin,Total 0.5 mg/dL (0.2-1.3); Blood Urea Nitrogen 5 mg/dL (8-21); Carbon Dioxide 30 mmol/L (22-30); Chloride 107 mmol/L (98-107); Creatine Kinase 818 U/L (55-170); Estimated CRCL calculation 128 ml/min; Estimated Glomerular Filt Rate > 60; Glucose 87 mg/dL (75-110); Magnesium 1.7 mg/dL (1.6-2.3); Potassium 3.6 mmol/L (3.4-5.0); Sodium 143 mmol/L (134-143)
[2021-01-19 09:26] VITALS: RESP 18; O2SAT 100
[2021-01-19] MEDS: ALPRAZolam (*CRX) 0.25 MG TABLET PO ×2 (09:26→18:22)
[2021-01-19] MEDS: SERTRALINE HCL 50 MG TABLET 150 MG PO (09:26)
--- NOTE | 2021-01-19 11:34 | PM.IMPN ---
Progress Note: A&P Assessment and Plan (1) Elevated creatine kinase: Code(s): R74.8 - Abnormal levels of other serum enzymes Status: Acute Assessment and Plan: Continue fluids LR at 100ml/hr CK down to 818 from 1055 Trend CK Labs in the am I&Os Mobility Up to chair for meals Regular diet (2) Metabolic acidosis: Code(s): E87.2 - Acidosis Status: Acute Assessment and Plan: Bicarb reported to low at 10.6 on ABG upon admission ABG showed metabolic acidosis Probably from serve vomiting Problem is resolved and corrected Renal function and Bicarb are normal No reported nausea or vomiting. (3) Anxiety: Code(s): F41.9 - Anxiety disorder, unspecified Status: Acute Assessment and Plan: Continue home Zoloft Valium 5mg q8hr and Xanax 0.25 q8hr PRN Education about coping skills (4) Muscle spasm: Code(s): M62.838 - Other muscle spasm Status: Acute Assessment and Plan: Resolved (5) Tetrahydrocannabinol (THC) dependence: Code(s): F12.20 - Cannabis dependence, uncomplicated Status: Acute Assessment and Plan: patient has acute intoxication of cannabis explained to patient that he was overdosing on cannabis Information packet was given to patient patient instructed cessation Subjective Date/time seen: 01/19/21 11:34 patient is a 20-year-old male with a past medical history of anxiety and hyper emesis who presented to the ED on 01/17 with complaints nausea vomiting. Patient was given 5 of Haldol in the ED, and the next variance adverse reactions was sent to the ICU. all signs and symptoms of that adverse reaction has been resolved. Upon examination of this patient today he said that he is 100% and he feels way better than he has. Patient explained that he uses marijuana for anxiety control. Patient denies having any more episodes of nausea vomiting. Patient also denies chest pain, shortness of breath, abdominal pain, loss of appetite, numbness and tingling, headaches, syncope, weakness, fatigue, anxiety, or headache. The patient had a long conversation about his marijuana use. It was explained to him that marijuana cessation is best for him. Patient stated that he vapes THC which he gets from the dispensary in [place]. he explained that this type of THC that he purchases is 73% pure. it was explained to the patient that he was overdosing of marijuana. Patient denies smoking, but does vape. 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 and that majority of his friends smoke marijuana. After initial conversation I returned to the patient's room dad was at bedside information was given to the patient about acute marijuana intoxication. It was reiterated that this patient should consider cessation of any products that must be smoked. Plan of care was explained to the patient and to dad. CK is still elevated at 818 today. Re-evaluation of CK will be evaluated tomorrow possibility of discharge tomorrow. Both patient and dad verbalized understanding of plan of care all questions were answered. Review of Systems Review of Systems: All systems reviewed & are unremarkable except as noted in HPI and below Exam Const: General: cooperative, healthy appearing, comfortable, no acute distress, well developed, alert, awake and Physically active Nutritional Appearance: average body habitus and well nourished Orientation/consciousness: patient oriented x3 Limitations: no limitations HENMT: Head: normal to inspection Ears: hearing grossly normal bilaterally and external ears normal General nose exam: Normal external nose present, Normal nares present, Normal nasal mucous membranes and turbinates present and No nasal discharge present Face and sinus: normal facial exam Mouth: Yes Normal oral and palatal mucosa present, Yes lip normal, Yes tongue normal and
[2021-01-19] MEDS: MAGNESIUM SULF 2 GM/WATER 50ML 2 GM/50 ML BAG IVPB (13:18)
[2021-01-19 14:03] VITALS: BP 123/71; PULSE 85; RESP 16; TEMP 35.9; O2SAT 99
[2021-01-19 19:40] VITALS: BP 141/74; PULSE 84; RESP 18; TEMP 36.5; O2SAT 98
[2021-01-19] MEDS: NICOTINE (*PBKC) 21 MG PATCH 1 PATCH TRANSDERM (20:13)
[2021-01-20] MEDS: ALPRAZolam (*CRX) 0.25 MG TABLET PO ×2 (00:40→08:00)
[2021-01-20] MEDS: LACTATED RINGERS 1,000 ML 100 ML IV CONT ×2 (02:40→13:38)
[2021-01-20 05:25] VITALS: BP 143/74; PULSE 71; RESP 18; TEMP 36.1; O2SAT 100
[2021-01-20 05:56] LABS: Hematocrit 40.3 % (42.0-52.0); Hemoglobin 13.5 g/dL (14.0-18.0); Mean Corpuscular HGB Conc 33.5 g/dl (32-36); Mean Corpuscular Hemoglobin 28.7 pg (26-34); Mean Corpuscular Volume 85.6 fl (80-100); Mean Platelet Volume 9.6 fl (7.4-10.4); Platelet Count Result 181 k/mm3 (150-375); Red Blood Count 4.71 M/mm3 (4.6-6.20); Red Cell Distribution Width 12.4 % (11.5-14.5); White Blood Count 8.1 K/mm3 (4.5-10.0)
[2021-01-20 06:08] LABS: Alanine Aminotransferase 27 U/L (4-50); Alkaline Phosphatase 59 U/L (58-237); Anion Gap 5 mmol/L (8-16); Aspartate Amino Transferase 56 U/L (17-59); Bilirubin,Total 0.6 mg/dL (0.2-1.3); Blood Urea Nitrogen 6 mg/dL (8-21); Calcium 9.4 mg/dL (8.9-10.7); Carbon Dioxide 30 mmol/L (22-30); Chloride 105 mmol/L (98-107); Creatine Kinase 1398 U/L (55-170); Estimated CRCL calculation 127 ml/min; Estimated Glomerular Filt Rate > 60; Glucose 79 mg/dL (75-110); Magnesium 1.8 mg/dL (1.6-2.3); Potassium 3.4 mmol/L (3.4-5.0); Sodium 140 mmol/L (134-143)
[2021-01-20] MEDS: diazePAM (*CRX) 5 MG TABLET PO ×3 (06:21→22:48)
--- NOTE | 2021-01-20 07:11 | PM.IMPN ---
Progress Note: A&P Assessment and Plan (1) Elevated creatine kinase: Code(s): R74.8 - Abnormal levels of other serum enzymes Status: Acute Assessment and Plan: Continue fluids LR at 100ml/hr CK down to 818 from 1398 Trend CK Labs in the am I&Os Mobility Up to chair for meals Regular diet (2) Anxiety: Code(s): F41.9 - Anxiety disorder, unspecified Status: Acute Assessment and Plan: Continue home Zoloft Valium 5mg q8hr and increase Xanax 0.5mg q8hr PRN Lorazepam 0.25mg PO once Education about coping skills (3) Metabolic acidosis: Code(s): E87.2 - Acidosis Status: Acute Assessment and Plan: Bicarb reported to low at 10.6 on ABG upon admission ABG showed metabolic acidosis Probably from serve vomiting Problem is resolved and corrected Renal function and Bicarb are normal No reported nausea or vomiting. (4) Muscle spasm: Code(s): M62.838 - Other muscle spasm Status: Acute Assessment and Plan: Resolved (5) Tetrahydrocannabinol (THC) dependence: Code(s): F12.20 - Cannabis dependence, uncomplicated Status: Acute Assessment and Plan: patient has acute intoxication of cannabis explained to patient that he was overdosing on cannabis Information packet was given to patient patient instructed cessation Time Spent With Patient Time with patient: 25 - 35 minutes Subjective Date/time seen: 01/20/21 07:11 patient is an 20-year-old male with a past medical history of anxiety and hyperemesis who presented to the ED on 01/17 with complaints of nausea vomit. Patient had reported to the ED on 01/14, 01/15, and 01/16 with same complaint. Today patient is lying in bed, and expressing that he is having issues with being in the hospital. Patient stated that he is very anxious, and having problems with being away from his parents. Patient stated that he feels 100% better, and denies chest pain, shortness of breath, nausea, vomiting, abdominal pain, numbness and tingling, headache, weakness, fatigue, syncope, or falls. Patient does admit to being very anxious and is lying in bed having an emotional moment. Patient's CK this morning was 1398 which is up from yesterday 818. patient is very adamant about going home today, it was explained to him that might not be possible due to his lab work. I explained to the patient he has an 20 and I would like to keep him safe, and would try to get him out of the hospital as soon as I possibly could. will encourage patient to get out of bed and walk through the hallways. Patient was on the phone with his father, all questions were answered patient verbalized understanding will continue with current plan of care. had a conversation with the patient and his father today about his medical condition. Explained the reasoning for the patient having this stay with IV fluids in the hospital. Visiting hours have been extended for the parents of this patient for 1 hour earlier. went over the labs with the father of the patient. Will try hard to discharge patient tomorrow depending on the CK. Review of Systems Review of Systems: All systems reviewed & are unremarkable except as noted in HPI and below Exam Const: General: cooperative, healthy appearing, comfortable, no acute distress, well developed, alert, awake and Physically active Nutritional Appearance: average body habitus and well nourished Orientation/consciousness: patient oriented x3 Limitations: no limitations HENMT: Head: normal to inspection Ears: hearing grossly normal bilaterally and external ears normal General nose exam: Normal external nose present, Normal nares present, Normal nasal mucous membranes and turbinates present and No nasal discharge present Face and sinus: normal facial exam Mouth: Yes Normal oral and palatal mucosa present, Yes lip normal, Yes tongue normal and Yes mois
[2021-01-20] MEDS: MAGNESIUM SULF 2 GM/WATER 50ML 2 GM/50 ML BAG IVPB (07:58)
[2021-01-20] MEDS: POTASSIUM CHLORIDE 20 MEQ TABLET 40 MEQ PO (08:00)
[2021-01-20] MEDS: SERTRALINE HCL 50 MG TABLET 150 MG PO (08:01)
[2021-01-20 11:57] VITALS: O2SAT 99
[2021-01-20 14:40] VITALS: BP 104/79; PULSE 78; RESP 16; TEMP 36.7; O2SAT 97
[2021-01-20] MEDS: ALPRAZolam (*CRX) 0.5 MG TABLET PO (19:41)
[2021-01-20] MEDS: NICOTINE (*PBKC) 21 MG PATCH 1 PATCH TRANSDERM (21:00)
[2021-01-20 21:41] VITALS: BP 113/76; PULSE 81; RESP 16; TEMP 36.6; O2SAT 99
[2021-01-21] MEDS: LACTATED RINGERS 1,000 ML 100 ML IV CONT (01:10)
[2021-01-21] MEDS: diazePAM (*CRX) 5 MG TABLET PO ×2 (06:19→14:56)
[2021-01-21 06:21] LABS: Hematocrit 41.3 % (42.0-52.0); Hemoglobin 13.9 g/dL (14.0-18.0); Mean Corpuscular HGB Conc 33.7 g/dl (32-36); Mean Corpuscular Hemoglobin 28.5 pg (26-34); Mean Corpuscular Volume 84.6 fl (80-100); Mean Platelet Volume 9.6 fl (7.4-10.4); Platelet Count Result 205 k/mm3 (150-375); Red Blood Count 4.88 M/mm3 (4.6-6.20); Red Cell Distribution Width 12.9 % (11.5-14.5); White Blood Count 6.8 K/mm3 (4.5-10.0)
[2021-01-21 06:34] LABS: Alanine Aminotransferase 32 U/L (4-50); Albumin Level 4.2 g/dL (3.7-5.6); Alkaline Phosphatase 61 U/L (58-237); Anion Gap 6 mmol/L (8-16); Aspartate Amino Transferase 66 U/L (17-59); Bilirubin,Total 0.7 mg/dL (0.2-1.3); Blood Urea Nitrogen 10 mg/dL (8-21); Calcium 9.7 mg/dL (8.9-10.7); Carbon Dioxide 29 mmol/L (22-30); Chloride 105 mmol/L (98-107); Creatine Kinase 1554 U/L (55-170); Estimated CRCL calculation 133 ml/min; Estimated Glomerular Filt Rate > 60; Glucose 75 mg/dL (75-110); Magnesium 1.9 mg/dL (1.6-2.3); Potassium 3.9 mmol/L (3.4-5.0); Sodium 140 mmol/L (134-143)
[2021-01-21] MEDS: LACTATED RINGERS 1,000 ML 999 ML IV CONT ×3 (06:59→15:03)
[2021-01-21] MEDS: MAGNESIUM SULF 2 GM/WATER 50ML 2 GM/50 ML BAG IVPB (07:49)
[2021-01-21] MEDS: SERTRALINE HCL 50 MG TABLET 150 MG PO (08:26)
[2021-01-21] MEDS: ALPRAZolam (*CRX) 0.5 MG TABLET PO ×2 (08:27→15:48)
[2021-01-21 09:00] VITALS: BP 113/64; PULSE 84; RESP 16; TEMP 36.1; O2SAT 100
[2021-01-21] MEDS: LACTATED RINGERS 1,000 ML 200 ML IV CONT ×3 (11:07→21:30)
[2021-01-21 14:00] VITALS: BP 116/69; PULSE 85; RESP 16; TEMP 36.2; O2SAT 100
[2021-01-21 14:30] VITALS: BP 116/69; PULSE 85; RESP 16; TEMP 36.2; O2SAT 100
[2021-01-21 14:32] LABS: Creatine Kinase 1513 U/L (55-170)
[2021-01-21 15:51] LABS: Anion Gap 6 mmol/L (8-16); Blood Urea Nitrogen 11 mg/dL (8-21); Calcium 9.5 mg/dL (8.9-10.7); Carbon Dioxide 30 mmol/L (22-30); Chloride 105 mmol/L (98-107); Estimated CRCL calculation 151 ml/min; Estimated Glomerular Filt Rate > 60; Glucose 89 mg/dL (75-110); Sodium 141 mmol/L (134-143)
--- NOTE | 2021-01-21 16:00 | PC.NURSE ---
Patient's father spoke to RN in [facility] stating that patient did have a prior suicide attempt in September. Patient was asked about said attempt and states that he was under high stress and anxiety r/t finals at school and added this isn't like that . RN explained to patient that with prior history of standing on a ledge with suicide ideation and now with his statement r/t this admission that a risk is present and that it is recommended that he meet with crisis to identify healthy coping mechanisms r/t stress and anxiety. Patient's dad also verbalizes that he needs a psych consult .
--- NOTE | 2021-01-21 16:09 | P.PNIM_ITS ---
Progress Note: A&P Assessment and Plan (1) Elevated creatine kinase: Code(s): R74.8 - Abnormal levels of other serum enzymes Status: Acute Assessment and Plan: * Continue fluids LR at 200ml/hr * 2L LR bolus given * CK up from 1398 ->1554 ->1513 * Trend CK * Labs in the am * I&Os * Mobility * Up to chair for meals * Regular diet (2) Suicide: Qualifiers: Encounter type: initial encounter Qualified Code(s): X83.8XXA - Intentional self-harm by other specified means, initial encounter Code(s): X83.8XXA - Intentional self-harm by other specified means, initial encounter Status: Acute Assessment and Plan: * Patient told RN in the presence of his father that he would rather than stay here one more night. * Patient placed on suicide precautions * Paper scrubs * 1:1 observer * Will need crisis intervention * Will need psychological evaluation * transfer will need to be initiated * Not medically cleared (3) Anxiety: Code(s): F41.9 - Anxiety disorder, unspecified Status: Acute Assessment and Plan: * Continue home Zoloft * Valium 5mg q8hr and increase Xanax 0.5mg q8hr PRN * Education about coping skills (4) Metabolic acidosis: Code(s): E87.2 - Acidosis Status: Acute Assessment and Plan: * Bicarb reported to low at 10.6 on ABG upon admission * ABG showed metabolic acidosis * Probably from serve vomiting * Problem is resolved and corrected * Renal function and Bicarb are normal * No reported nausea or vomiting. (5) Muscle spasm: Code(s): M62.838 - Other muscle spasm Status: Acute Assessment and Plan: * Resolved (6) Tetrahydrocannabinol (THC) dependence: Code(s): F12.20 - Cannabis dependence, uncomplicated Status: Acute Assessment and Plan: * patient has acute intoxication of cannabis * explained to patient that he was overdosing on cannabis * Information packet was given to patient * patient instructed cessation Time Spent With Patient Time: Extended time with patient at bedside, result review, evaluation and documentation. Time with patient: Greater than 35 minutes Subjective Date/time seen: 01/21/21 15:09 patient is an 20-year-old male with a past medical history of anxiety and hyperemesis who presented to the ED on 01/17 with complaints of nausea vomit. Patient had reported to the ED on 01/14, 01/15, and 01/16 with same complaint. This morning's labs noted a CK of 1554. upon examination the patient stated that he was 100% better and would like to go home. patient stated that he has no other complaints or issues at this time. He did state that he was very anxious and he is ready to go home. At 3:00 p.m. this afternoon after his CK repeat of 1513 patient did state that he was going to psychosis he was unable to go home in the morning. Patient was very emotional, crying, unable to cope with having to stay tonight. Patient has since then told RN that he was going to leave to kill himself. According to RN he said he would rather than stay 1 more night here, His father was also present in the room when all this was happening. All the proper authorities and protocols have been carried out. Case management is also helping with the case. Patient admits to having insomnia at night. Patient denies chest pain, shortness of breath, nausea, vomiting, abdominal pain, numbness and tingling, headache, weakness
--- NOTE | 2021-01-21 16:09 | PM.IMPN ---
Progress Note: A&P Assessment and Plan (1) Elevated creatine kinase: Code(s): R74.8 - Abnormal levels of other serum enzymes Status: Acute Assessment and Plan: Continue fluids LR at 200ml/hr 2L LR bolus given CK up from 1398 ->1554 ->1513 Trend CK Labs in the am I&Os Mobility Up to chair for meals Regular diet (2) Suicide: Qualifiers: Encounter type: initial encounter Qualified Code(s): X83.8XXA - Intentional self-harm by other specified means, initial encounter Code(s): X83.8XXA - Intentional self-harm by other specified means, initial encounter Status: Acute Assessment and Plan: Patient told RN in the presence of his father that he would rather than stay here one more night. Patient placed on suicide precautions Paper scrubs 1:1 observer Will need crisis intervention Will need psychological evaluation transfer will need to be initiated Not medically cleared (3) Anxiety: Code(s): F41.9 - Anxiety disorder, unspecified Status: Acute Assessment and Plan: Continue home Zoloft Valium 5mg q8hr and increase Xanax 0.5mg q8hr PRN Education about coping skills (4) Metabolic acidosis: Code(s): E87.2 - Acidosis Status: Acute Assessment and Plan: Bicarb reported to low at 10.6 on ABG upon admission ABG showed metabolic acidosis Probably from serve vomiting Problem is resolved and corrected Renal function and Bicarb are normal No reported nausea or vomiting. (5) Muscle spasm: Code(s): M62.838 - Other muscle spasm Status: Acute Assessment and Plan: Resolved (6) Tetrahydrocannabinol (THC) dependence: Code(s): F12.20 - Cannabis dependence, uncomplicated Status: Acute Assessment and Plan: patient has acute intoxication of cannabis explained to patient that he was overdosing on cannabis Information packet was given to patient patient instructed cessation Time Spent With Patient Time: Extended time with patient at bedside, result review, evaluation and documentation. Time with patient: Greater than 35 minutes Subjective Date/time seen: 01/21/21 15:09 patient is an 20-year-old male with a past medical history of anxiety and hyperemesis who presented to the ED on 01/17 with complaints of nausea vomit. Patient had reported to the ED on 01/14, 01/15, and 01/16 with same complaint. This morning's labs noted a CK of 1554. upon examination the patient stated that he was 100% better and would like to go home. patient stated that he has no other complaints or issues at this time. He did state that he was very anxious and he is ready to go home. At 3:00 p.m. this afternoon after his CK repeat of 1513 patient did state that he was going to psychosis he was unable to go home in the morning. Patient was very emotional, crying, unable to cope with having to stay tonight. Patient has since then told RN that he was going to leave to kill himself. According to RN he said he would rather than stay 1 more night here, His father was also present in the room when all this was happening. All the proper authorities and protocols have been carried out. Case management is also helping with the case. Patient admits to having insomnia at night. Patient denies chest pain, shortness of breath, nausea, vomiting, abdominal pain, numbness and tingling, headache, weakness, fatigue, syncope, or falls. I did educate patient about the risk of going home before his CK was below 1000 including renal failure, all the way up to . I have consulted with my attending Dr. Hendricks on this patient. She agreed to the plan of care that was initiated, and provided further orders which were also carried out. Dr. Hendricks was also notified of the new Ck that was drawn this afternoon and to agree to that with the care plan of keeping the patient and checking
--- NOTE | 2021-01-21 17:10 | PCCCNOTE ---
Denied by KATHRYN per Marah
--- NOTE | 2021-01-21 17:11 | PCCCNOTE ---
Spoke with Crisis. They will be here tonight to evaluated patient
--- NOTE | 2021-01-21 17:25 | PC.NURSE ---
Patient to ICU per wheelchair. Report to LUIS Rascon.
--- NOTE | 2021-01-21 17:35 | PC.NURSE ---
1730-Pt. received in room ICU 4 from room 345 via wheelchair. Tarah SMITH took over care of patient. Pt. stable upon transfer. Pt.'s phone locked up in our safe per patient's request.
--- NOTE | 2021-01-21 18:48 | PC.NURSE ---
RN at bedside to administer xanax per MAR; ok to administer NOW per TORB from Greg Shaikh NP. Patient states I'd rather than be here another night . RN asked patient if he had any plans of self harm; patient replied, NO, I don't have a plan, but I'd rather be than to spend another night in this hospital. Patient presents as anxious, resistant to plan of care. Patient repeatedly states he suffers from PTSD from a previous hospital stay in [place]. Patient insists that he is here for admission through no fault of my own, it's because your ER doctors overdosed me! THERMAL INTELLIGENCE ANALYST had previously explained treatment to patient and identified the claim of overdose as a newly identified allergic reaction, however, patient still insists that he was overdosed. Patient expresses doubt in the care of his current hospitalist; repeatedly states that he has no confidence in the physicians at [facility]. RN explained the risks of the patient signing out AMA, as patient has mentioned his intent to do so. Patient states my mental health is more important to me than my kidneys ; I am leaving ; this place is causing me to have PTSD and my anxiety is high ; I have other things to do than be here . Nursing umbrella supervisor, care coordination, charge nurse, and security notified. Greg Shaikh notified. Patient was informed of the plan, resisted transfer and suicide precautions. Patient denies being suicidal at present, however, still presents as anxious. Plan to enforce suicide precautions and transfer to ICU with 09/03 supervision initiated.
[2021-01-21 19:45] VITALS: TEMP 36.6
--- NOTE | 2021-01-21 20:20 | PC.NURSE ---
Pt states that he is to be discharged home with papers and prescriptions once he has been cleared by Crisis. Explained to pt that hospital physicians have not medically cleared him to leave because of his elevated CK level. Pt states that his level is elevated because they overdosed me on haldolol in the ER. Explained to pt that the proper treatment for the elevated CK level would be for him to receive IVF. Pt states that he is not comfortable here because I have been told 10 different stories on what was going to happen. Marguerite, head charger called to pt's bedside. She explained the same thing to pt. Marguerite to update Dr. Hough and notify household appliance installer that pt would like to make a formal complaint.
--- NOTE | 2021-01-21 20:39 | PM.EVENT ---
Event Note Event Note Event Note: Nursing staff called to notify me that crisis is coming to evaluate the patient. If crisis does not feel the patient needs inpatient psychiatric care and if the patient has a safety contract in place the patient was demanding to be discharged from the hospital. On review of the patient's chart the patient's CK is still above 1500. I notify the nursing staff that if crisis felt the patient did not need inpatient psychiatric care and if the patient was still insistent upon leaving that he would have to leave the hospital AMA. The patient was stating that the daytime provider head promised him medications to go home with. I informed the nursing staff that if the patient left against medical advice that I would not prescribe any medications. I feel it is in the patient's best interest to remain in the hospital on IV fluid hydration to reduce the risk of complications of rhabdomyolysis.
--- NOTE | 2021-01-21 21:38 | PC.NURSE ---
Crisis at pt bedside.
--- NOTE | 2021-01-21 22:30 | PC.NURSE ---
stock worker wrote up safety plan with pt. She strongly urged pt to stay overnight for continuation of IV fluids. Pt states that he is not receiving medical treatment here. stock worker explained to pt that he will be leaving AMA. Pt states that he understands that. stock worker and pt called his parents on speaker phone to discuss her plans with them. George left pt bedside at [id number].
--- NOTE | 2021-01-21 22:38 | PC.NURSE ---
01/21/211999 Spoke with pt. Pt is frustrated. States that a woman in a white coat and glasses promised him that if crisis agreed with a safety contract the doctor would discharge him medications. Explained to him that i would speak to the night hospitalist but the information I received was that he was considered not medically stable so he would not be discharged. Pt stated that if that was the case he would sign out. I explained that if he choose to he would be leaving against medical advice. Pt states he has lost confidence and trust in this hospital and wants to pursue medical treatment elsewhere.
--- NOTE | 2021-01-21 22:40 | PC.NURSE ---
Tonya, fish house worker, at pt's bedside to hear pt concerns. Tonya also explained to pt, as did previous staff members, that he would be leaving AMA. Pt again states that he is not receiving medical care here and that he can be better cared for at home. Tonya discussed with pt his need to continue to drink fluids and to monitor for kidney issues, such as decreased or concentrated urine. Pt was instructed to seek out medical help if he develops any symptoms. Pt verbalized understanding.
--- NOTE | 2021-01-21 23:00 | PC.NURSE ---
Pt called his mother for a ride home. Pt was verbally instructed to increase his water intake when he gets home, monitor for renal symptoms, stay away from all forms of marijuana, and to follow up with his PCP. Pt verbalized understanding. DONNELL formed signed. Pt was escorted to [facility] at [id number] to wait for his ride.
--- NOTE | 2021-01-21 23:14 | PC.NURSE ---
01/21/212119 SPOKE WITH PATIENT FATHER, RODRÍGUEZ, WHO IS ALSO FRUSTRATED WITH CARE. STATES THEY HAVE BEEN GETTING DIFFERENT INFORMATION FROM EVERYONE AND CLAIMS THAT TWO DIFFERENT NURSES TOLD HIS SON IT WAS OK TO SMOKE POT IF HE EITHER DID GUMMIES OR CUT BACK. EXPLAINED TO HIM THAT I HAD A DISCUSSION WITH HIM AND REINFORCED THAT HE NEEDED TO STOP MARIJUANA COMPLETELY AND DRINK LOTS OF FLUIDS, ESPECIALLY WATER. FATHER ALSO EXPRESSES FRUSTRATION WITH THE ER AND BLAMES THEM FOR ADMIT. FATHER WAS INFORMED THAT I CANNOT SPEAK TO WHAT HAS HAPPENED IN THE PAST, ALTHOUGH I APOLOGIZED FOR ANY FRUSTRATION, BUT CAN ONLY HELP WITH WHAT IS HAPPENING NOW. FATHER STATES THAT A WOMEN TOLD THEM SHE WOULD ADVOCATE FOR DISCHARGE INSTRUCTIONS AND MEDICATIONS IF CRISIS AGREED TO A SAFETY CONTRACT. EXPLAINED TO FATHER THAT ALTHOUGH SHE CAN ADVOCATE FOR DISCHARGE, THE DOCTORS WILL ONLY DO WHAT THEY FEEL IS APPROPRIATE AND I HAVE SPOKEN TO THE NIGHT HOSPITALIST WHO DOES NOT FEEL WITH CURRENT CK LEVEL DISCHARGE IS APPROPRIATE. CRISIS HAS NOT SEEN PT YET AND ASSURED FATHER I WOULD CHECK TO SEE THEY WERE STILL COMING.
--- NOTE | 2021-01-21 23:30 | PC.NURSE ---
01/21/212239 SPOKE WITH PT WHO IS SIGNING OUT AMA. PT UNDERSTANDS CK LEVELS ARE ELEVATED AND CAN HARM HIS KIDNEYS. SUGGESTED HE NOT GO OUT IN THE HEAT, DO STRENUOUS EXERCISE, HE NEEDS TO DRINK LOTS OF WATER AND REITERATED DISCONTINUATION OF MARIJUANA COMPLETELY. PT STATES HE IS GOING TO GO SOMEWHERE ELSE WHERE HE CAN GET ADEQUATE CARE. PHONE RETURNED TO PT.
== END 2021-01-21 22:57 | disposition left against medical advice (07) | DRG 894 ==
LOC: ANHED 18:49 → ANHICU 21:01 → ANH3MED 01-18 13:16 → ANHICU 01-21 17:40 → ANH3MED 01-25 17:51 → ANHICU 01-25 17:51
PROVIDERS: Nurse Practitioner; Physician Assistant; Admitting Provider Family Medicine; Emergency Provider Emergency Medicine; PCP Pediatrics; Visit Provider Internal Medicine
DX: F12.229 Cannabis dependence with intoxication, unspecified (principal); E87.2 Acidosis; R45.851 Suicidal ideations; R74.8 Abnormal levels of other serum enzymes; M62.838 Other muscle spasm; F41.9 Anxiety disorder, unspecified; F17.290 Nicotine dependence, other tobacco product, uncomplicated; G47.00 Insomnia, unspecified; R11.15 Cyclical vomiting syndrome unrelated to migraine; Z86.61 Personal history of infections of the central nervous system; Z79.899 Other long term (current) drug therapy
CPT/HCPCS: 36415; 36600; 71045; 80048; 80053; 80076; 80307; 81001; 82375; 82550; 82805; 82948; 83050; 83605; 83735; 83930; 84443; 85025; 85027; 85610; 85730; 86140; 87040; 93005; 96360; 96361; 96365; 96366; 96375; 96376; 99285; A9270; G0378; J1200; J2060; J3475; J7030; J7120

== ENCOUNTER 2021-01-22 12:24 | Outpatient (CLI) | payer OTHER, SELFPAY ==
[2021-01-22 13:07] LABS: Creatine Kinase 1468 U/L (55-170)
== END 2021-01-22 12:25 | disposition home or self-care (01) ==
PROVIDERS: PCP Pediatrics; Visit Provider Pediatrics
DX: G24.01 Drug induced subacute dyskinesia (principal)
CPT/HCPCS: 36415; 82550

== ENCOUNTER 2021-01-23 15:25 | Outpatient (CLI) | payer OTHER, SELFPAY ==
[2021-01-23 15:53] LABS: Creatine Kinase 1160 U/L (55-170)
== END 2021-01-23 15:26 | disposition home or self-care (01) ==
LOC: ANHLAB 15:28
PROVIDERS: PCP Pediatrics; Visit Provider Pediatrics
DX: G24.01 Drug induced subacute dyskinesia (principal)
CPT/HCPCS: 36415; 82550

== ENCOUNTER 2021-12-22 13:01 | Emergency (ER) | payer OTHER, SELFPAY ==
[2021-12-22 13:15] VITALS: BP 139/89; PULSE 115; RESP 18; TEMP 36.7; O2SAT 100
[2021-12-22 13:31] LABS: Basophils Absolute Auto 0.1 K/mm3 (0.0-0.1); Basophils Percent Auto 0.5 % (0.2-1.2); Eosinophils Absolute Auto 0.2 K/mm3 (0-0.3); Eosinophils Percent Auto 1.1 % (0-4.4); Hematocrit 42.9 % (42.0-52.0); Hemoglobin 15.2 g/dL (14.0-18.0); Immature Granulocyte Absolute 0.16 K/mm3 (0.00-0.031); Immature Granulocyte Percent A 1.1 % (0-0.5); Lymphocytes Absolute Auto 2.21 K/mm3 (0.9-3.2); Lymphocytes Percent Auto 15.6 % (18.3-44.2); Mean Corpuscular HGB Conc 35.4 g/dl (32-36); Mean Corpuscular Hemoglobin 29.2 pg (26-34); Mean Corpuscular Volume 82.5 fl (80-100); Monocytes Absolute Auto 0.9 K/mm3 (0.1-0.6); Monocytes Percent Auto 6.6 % (2.6-8.5); Neutrophils Absolute Auto 10.6 K/mm3 (1.3-6.7); Neutrophils Percent Auto 75.1 % (45.5-73.1); Platelet Count Result 334 k/mm3 (150-375); Red Cell Distribution Width 12.8 % (11.5-14.5); White Blood Count 14.2 K/mm3 (4.5-10.0)
[2021-12-22 13:39] LABS: Mucus Urine Rare /lpf; RBC Urine 51-75 /hpf (0-2)
[2021-12-22 13:45] LABS: Appearance Urine Slightly Cloudy (Clear); Bilirubin Urine Negative (Negative); Blood Urine Negative (Negative); Color Urine Yellow (Yellow); Glucose Urine UA Negative (Negative); Ketones Urine 2+ mg/dL (Negative); Leukocyte Esterase Ur Negative LEU/UL (Negative); Nitrate Urine Negative (Negative); Protein Urine 1+ mg/dL (Negative); Urobilinogen Urine 0.2 mg/dL (<2.0); pH Urine 8.5 (5.0-9.0)
[2021-12-22 13:52] LABS: Add Urine Microscopic? YES; Budding Yeast Urine Present /hpf
[2021-12-22 14:00] LABS: Alanine Aminotransferase 42 U/L (4-50); Albumin Level 5.1 g/dL (3.5-5.1); Alkaline Phosphatase 78 U/L (38-126); Anion Gap 19 mmol/L (8-16); Aspartate Amino Transferase 50 U/L (17-59); Bilirubin,Total 1.2 mg/dL (0.2-1.3); Blood Urea Nitrogen 14 mg/dL (9-20); Calcium 9.4 mg/dL (8.4-10.2); Carbon Dioxide 13 mmol/L (22-30); Chloride 106 mmol/L (98-107); Estimated CRCL calculation 107 ml/min; Estimated Glomerular Filt Rate > 60; Glucose 163 mg/dL (65-110); Lipase 69 U/L (23-300); Potassium 3.4 mmol/L (3.4-5.0); Sodium 138 mmol/L (137-145)
[2021-12-22] MEDS: PROMETHAZINE HCL 25 MG/ML AMPUL 12.5 MG IV PUSH (15:38)
[2021-12-22] MEDS: SODIUM CHLORIDE 0.9% IV 1,000 ML 999 ML IV CONT (15:38)
[2021-12-22 15:43] VITALS: BP 144/100; PULSE 116; RESP 25; O2SAT 99
--- NOTE | 2021-12-22 17:38 | ED.NAVMDI ---
HPI - Nausea/Vomiting/Diarrhea General Chief complaint: Nausea/Vomiting/Diarrhea Stated complaint: vomiting Time Seen by Provider: 12/22/21 14:20 History of Present Illness HPI Narrative: Patient is a 21-year-old male who presents ER with nausea and vomiting. Patient has had dry heaving and retching throughout the day. He has history of cannabis cyclic vomiting syndrome. Unfortunately he uses cannabis habitually to help treat some PTSD and anxiety. Reports last night he rolled a blunt with some friends and smoked it. He has no chest pain or chest pressure. No abdominal discomfort. Merrily his persistent retching which is making him anxious. Related Data Home Medications Medication Instructions Recorded Confirmed sertraline [Zoloft] 150 mg PO DAILY 01/18/21 01/18/21 Allergies Allergy/AdvReac Type Severity Reaction Status Date / Time haloperidol [From Haldol] Allergy Intermediate Muscle Verified 01/18/21 10:42 Spasms Review of Systems Review of Systems: All systems reviewed & are unremarkable except as noted in HPI and below Constitutional: Constitutional: Denies chills, Denies fever(s) and Denies weakness ENT: Denies nasal congestion and Denies sore throat Gastrointestinal: Gastrointestinal: Denies abdominal pain, Denies diarrhea, Reports nausea and Reports vomiting Neurologic: Denies focal weakness and Denies numbness Psychiatric: Psychiatric: Reports anxiety and Denies depression [facility] Past Medical History Medical History (Updated 12/22/21 @ 17:39 by Vignesh De Leon MD) Anxiety Bacterial meningitis (2001) At age 4 months. Suicide Tetrahydrocannabinol (THC) dependence Surgical History Surgical History No history of previous surgery Family History Family History Mother Hyperlipemia Father Hyperlipemia Social History Social History Social History: Surrogate decision maker: Donovan Chandler, father. Code status: Full code. Smoking status: Current every day smoker Tobacco type: e-cigarettes/vaping Alcohol intake: current Drinks per week: 4 Substance use: current Substance use type: marijuana and other Other substance usage details: Vapes Delta 9 THC for several weeks, previously used Delta 8 THC. Last use: 01/16/2021 Additional living arrangements comments: The patient lives in [place] with his family. He is a student at [employer]. Additional occupation/education comments: Student at [employer]. Gender identity (if verbalized by the patient): Male Spiritual care concerns: No Exam Narrative: GENERAL: Well-appearing, well-nourished, and in no acute distress. HEAD: Normocephalic, atraumatic. EYES: PERRL and EOMI. ENT: Mucous membranes moist. CHEST: Clear to auscultation. No respiratory distress. HEART: Regular rate and rhythm. Normal peripheral pulses. ABDOMEN: Soft, nontender, nondistended. EXTREMITIES: Normal range of motion. No edema. NEURO: Alert and oriented x3. PSYCH: Normal mood and affect. Course Course Emergency Course: Nausea and vomiting stopped with Phenergan. Tolerating oral intake. Discussed the need to use cannabis in moderation and if he is purchasing from dispensary to take very limited doses such as a known dosage gummy or chocolate square. Is not recommended that he just take what ever he has some rolled into a blunt and smoke it with his friends. Discharge home. Vital Signs Vital signs: Vital Signs Temperature 98.1 F 12/22/21 13:15 Pulse Rate 115 H 12/22/21 13:15 Respiratory Rate 18 12/22/21 13:15 Blood Pressure 139/89 12/22/21 13:15 Pulse Oximetry 100 12/22/21 13:15 Temperature 98.1 F 12/22/21 13:15 Pulse Rate 100 12/22/21 18:07 Respiratory Rate 16 12/22/21 18:07 Blood Pressure 134/98 H 12/22/21 18:07 Pulse Oximetry 99
[2021-12-22 18:07] VITALS: BP 134/98; PULSE 100; RESP 16; O2SAT 99
== END 2021-12-22 18:10 | disposition home or self-care (01) ==
PROVIDERS: Emergency Medicine; Emergency Provider Emergency Medicine; PCP Pediatrics
DX: R11.2 Nausea with vomiting, unspecified (principal); F12.90 Cannabis use, unspecified, uncomplicated; F41.9 Anxiety disorder, unspecified; F43.10 Post-traumatic stress disorder, unspecified; F17.290 Nicotine dependence, other tobacco product, uncomplicated
CPT/HCPCS: 36415; 80053; 81001; 83690; 85025; 87086; 87088; 96361; 96374; 99284; J2550; J7030

== ENCOUNTER 2022-03-29 00:19 | Day surgery (SDC) | payer OTHER, SELFPAY ==
[2022-03-13 14:28] VITALS: BMI 28.8
[2022-03-29 08:36] VITALS: BP 129/91; PULSE 98; RESP 20; TEMP 36.4; O2SAT 100; BMI 31.4
[2022-03-29] MEDS: LACTATED RINGERS 1,000 ML 150 ML IV CONT (08:43)
--- NOTE | 2022-03-29 08:44 | WPDANESEPPF ---
Anes - Initial Pre Proc Eval Procedure: Operation Date: 03/29/22 09:45 Proposed Procedures p Esophagogastroduodenoscopy - Angel Pineda MD Date/Time: 03/29/22 08:44 Surgeon: Angel Pineda MD Pre Op Diagnosis: nausea, vomiting Patient Data Age: 21 Gender: M Height: 1.78 m Weight: 99.5 kg Last Vital Signs Temp 36.4 C 03/29/22 08:36 Pulse 98 03/29/22 08:36 Resp 20 03/29/22 08:36 BP 129/91 H 03/29/22 08:36 Pulse Ox 100 03/29/22 08:36 O2 Del Method Room Air 03/29/22 08:36 Allergies Allergy/AdvReac Type Severity Reaction Status Date / Time haloperidol [From Haldol] Allergy Intermediate Muscle Verified 03/29/22 08:35 Spasms Home Medications Medication Instructions Recorded Confirmed Type amitriptyline 25 mg tablet 25 mg PO TID 01/26/22 03/13/22 History olanzapine 5 mg tablet (Zyprexa) 5 mg PO BID 01/26/22 03/13/22 History propranolol 10 mg tablet 10 mg PO Q12H #60 tabs 01/26/22 03/13/22 Rx quetiapine 200 mg tablet (Seroquel) 200 mg PO QHS 01/26/22 03/13/22 History aprepitant 80 mg capsule See Rx Instructions .Route .COMPLEX 03/13/22 03/13/22 History esketamine 84 mg (28 mg x 3) nasal See Rx Instructions .Route .COMPLEX 03/13/22 03/13/22 History spray (Spravato) vilazodone 40 mg tablet 1 tablet PO DAILY 03/13/22 03/13/22 History Patient hx anesthesia problems: none Family hx anesthesia problems: none Results Review: All pre-operative results and documents have been reviewed as part of the pre-operative evaluation. [facility] Past Medical History Medical History (Updated 01/26/22 @ 10:49 by Angel Pineda MD) Anxiety Bacterial meningitis (2001) At age 4 months. Cyclic vomiting syndrome Suicide Tetrahydrocannabinol (THC) dependence Surgical History Surgical History No history of previous surgery Family History Family History Mother Hyperlipemia Father Hyperlipemia Social History Social History Social History: Surrogate decision maker: Donovan Chandler, . Code status: Full code. Smoking status: Current every day smoker Tobacco type: e-cigarettes/vaping Alcohol intake: current Drinks per week: 4 Alcohol use details: 5-10 drinks per month Substance use: current Substance use type: marijuana and other Other substance usage details: medical marijuana Last use: 01/16/2021 Living arrangements: alone Additional living arrangements comments: The patient lives in [place] with his family. He is a student at [employer]. Additional occupation/education comments: Student at [employer]. Gender identity (if verbalized by the patient): Male Spiritual care concerns: No Anes - Eval Final PreProcedure Day of Procedure 03/29/22 08:44 Patient weight: obese Heart: regular rate and rhythm Lungs: clear to auscultation and normal air movement Airway: Mallampati scale class II Neurological: alert and oriented Last oral intake: >/= 8 hours ASA classification: III Emergent: no Anesthetic plan: proceed Anesthesia type and monitoring: general GIVS Results Review: All pre-operative results and documents have been reviewed as part of the pre-operative evaluation. Informed Consent: The patient's anesthetic plan and its attendant risks and benefits were discussed with the patient/family/POA. Questions were solicited and answers provided to the satisfaction of the patient/family/POA.
--- NOTE | 2022-03-29 09:31 | PM.HPGS ---
History of Present Illness History of Present Illness Consent: Risks, benefits, and alternatives have been discussed and questions answered. Patient agrees to proceed with procedure. Chief complaint: nausea, vomiting Narrative: Genny Chandler is a 21 year old male with cyclic vomiting related to cannabis, started using propranolol and also aprepitant. Better since last office visit, never had egd Review of Systems Constitutional: Constitutional: Denies headache(s) and Denies weakness Eyes: Eyes: Denies blurry vision ENT: Reports Normal hearing present, Denies headache(s) and Denies neck pain Cardiovascular: Cardiovascular: Denies chest pain and Denies dyspnea Respiratory: Respiratory: Denies dyspnea Gastrointestinal: Gastrointestinal: Reports no additional gastrointestinal complaints Genitourinary: Genitourinary: Denies dysuria Musculoskeletal: Musculoskeletal: Denies neck pain Integumentary/Breasts: Skin/Breast: Denies dry skin Neurologic: Reports Normal hearing present, Denies headache(s) and Denies weakness Psychiatric: Psychiatric: Denies anxiety Endocrine: Endocrine: Denies change in body appearance Hematologic/Lymphatic: Hematologic/Lymphatic: Denies easy bleeding Allergic/Immunologic: Allergic/Immunologic: Denies urticaria [facility] Past Medical History Medical History (Updated 01/26/22 @ 10:49 by Angel Pineda MD) Anxiety Bacterial meningitis (2001) At age 4 months. Cyclic vomiting syndrome Suicide Tetrahydrocannabinol (THC) dependence Surgical History Surgical History No history of previous surgery Family History Family History Mother Hyperlipemia Father Hyperlipemia Social History Social History Social History: Surrogate decision maker: Donovan Chandler, father. Code status: Full code. Smoking status: Current every day smoker Tobacco type: e-cigarettes/vaping Alcohol intake: current Drinks per week: 4 Alcohol use details: 5-10 drinks per month Substance use: current Substance use type: marijuana and other Other substance usage details: medical marijuana Last use: 01/16/2021 Living arrangements: alone Additional living arrangements comments: The patient lives in [place] with his family. He is a student at [employer]. Additional occupation/education comments: Student at [employer]. Gender identity (if verbalized by the patient): Male Spiritual care concerns: No Meds Home Medications and Allergies Home Medications Medication Instructions Recorded Confirmed Type amitriptyline 25 mg tablet 25 mg PO TID 01/26/22 03/13/22 History olanzapine 5 mg tablet (Zyprexa) 5 mg PO BID 01/26/22 03/13/22 History propranolol 10 mg tablet 10 mg PO Q12H #60 tabs 01/26/22 03/13/22 Rx quetiapine 200 mg tablet (Seroquel) 200 mg PO QHS 01/26/22 03/13/22 History aprepitant 80 mg capsule See Rx Instructions .Route .COMPLEX 03/13/22 03/13/22 History esketamine 84 mg (28 mg x 3) nasal See Rx Instructions .Route .COMPLEX 03/13/22 03/13/22 History spray (Spravato) vilazodone 40 mg tablet 1 tablet PO DAILY 03/13/22 03/13/22 History Allergies Allergy/AdvReac Type Severity Reaction Status Date / Time haloperidol [From Haldol] Allergy Intermediate Muscle Verified 03/29/22 08:35 Spasms Vital Signs Vital Signs - 24 hr 03/29/22 08:36 Temperature 97.6 F Pulse Rate 98 Respiratory Rate 20 Blood Pressure 129/91 H Pulse Oximetry 100 Oxygen Delivery Room Air Exam Const: General: comfortable and no acute distress HENMT: General nose exam: Normal nares present Eyes: General: appearance normal, both eyes and all related structures Neck: Neck: no JVD Resp: Auscultation: clear to auscultation bilaterally Cardio: Rate: regular rate Rhythm: regula
[2022-03-29 09:51] VITALS: BP 113/81; PULSE 97; RESP 18; O2SAT 100
[2022-03-29 10:01] VITALS: BP 119/87; PULSE 94; RESP 20; O2SAT 100
[2022-03-29 10:11] VITALS: BP 121/83; PULSE 95; RESP 20; O2SAT 100
== END 2022-03-29 10:18 | disposition home or self-care (01) ==
PROVIDERS: PCP Student in an Organized Health Care Education/Training Program; Visit Provider Internal Medicine Gastroenterology
PROC: 0DJ08ZZ Inspection of Upper Intestinal Tract, Via Natural or Artificial Opening Endoscopic (ICD-10-PCS; CPT 43235; principal; 2022-03-29 09:45)
DX: R11.2 Nausea with vomiting, unspecified (principal); K44.9 Diaphragmatic hernia without obstruction or gangrene; F41.9 Anxiety disorder, unspecified; K29.50 Unspecified chronic gastritis without bleeding; F17.210 Nicotine dependence, cigarettes, uncomplicated; F12.90 Cannabis use, unspecified, uncomplicated; E66.9 Obesity, unspecified; Z68.31 Body mass index [BMI] 31.0-31.9, adult
CPT/HCPCS: 43239; 88305; J2001; J2704; J7120

== ENCOUNTER 2023-02-25 12:41 | Emergency (ER) | payer OTHER, SELFPAY ==
[2023-02-25] VITALS (27 sets, daily range): BP systolic 108–167; BP diastolic 56–95; PULSE 89–102; RESP 12–27; TEMP 37; O2SAT 94–100
--- NOTE | 2023-02-25 13:17 | ECG_ITS ---
Measurements Intervals [place] Rate: 87 P: 68 [place]: 124 QRS: 71 QRSD: 112 T: 43 QT: 365 QTc: 441 Interpretive Statements SINUS RHYTHM WITH SINUS ARRHYTHMIA INCOMPLETE RIGHT BUNDLE BRANCH BLOCK [90+ ms QRS DURATION, TERMINAL R IN V1/V2, 40+ ms S IN I/aVL/V4/V5/V6] ST ELEVATION, CONSIDER EARLY REPOLARIZATION, INJURY PATTERN, PERICARDITIS ABNORMAL EKG COMPARED TO ECG 01/17/2021 13:00:30 SINUS RHYTHM NOW PRESENT SINUS ARRHYTHMIA NOW PRESENT Electronically Signed On 02-26-2023 10:35:55 CDT by Trevor Hernandez M.D.
[2023-02-25] MEDS: LACTATED RINGERS 1,000 ML 999 ML IV CONT ×2 (13:37→15:12)
[2023-02-25] MEDS: LORazepam INJ (*CRX) 2 MG/ML VIAL 1 MG IV PUSH (13:38)
--- NOTE | 2023-02-25 13:38 | ED.NAVMDI ---
HPI - Nausea/Vomiting/Diarrhea General Chief complaint: Nausea/Vomiting/Diarrhea Stated complaint: vomiting Time Seen by Provider: 02/25/23 12:53 Source: patient and RN notes reviewed Mode of arrival: ambulatory Limitations: no limitations History of Present Illness HPI Narrative: This is a 22 year old male with history of PTSD and anxiety who presents for evaluation of nausea and vomiting. PAtient states he has history of hyperemesis due to cannabis use and he states this is similar. He states he was using cannabis for 1 week and then he developed nausea and vomiting 48 hours ago. He states he has been unable to keep anything down. He denies abdominal pain. He is suffering from severe anxiety at this time as well because he is here without his father. He takes Xanax and he has not taken since yesterday. Related Data Home Medications Medication Instructions Recorded Confirmed olanzapine 5 mg tablet (Zyprexa) 5 mg PO BID 01/26/22 03/13/22 quetiapine 200 mg tablet (Seroquel) 200 mg PO QHS 01/26/22 03/13/22 aprepitant 80 mg capsule See Rx Instructions .Route .COMPLEX 03/13/22 03/13/22 esketamine 84 mg (28 mg x 3) nasal See Rx Instructions .Route .COMPLEX 03/13/22 03/13/22 spray (Spravato) vilazodone 40 mg tablet 1 tablet PO DAILY 03/13/22 03/13/22 clonazepam 0.5 mg tablet 0.5 mg PO DAILY 11/09/22 Allergies Allergy/AdvReac Type Severity Reaction Status Date / Time haloperidol [From Haldol] Allergy Intermediate Muscle Verified 11/09/22 08:38 Spasms Review of Systems Constitutional: Constitutional: Denies weakness Cardiovascular: Cardiovascular: Denies syncope, Denies rapid heart rate, Denies irregular heart rhythm, Denies leg edema and Denies dyspnea Respiratory: Respiratory: Denies chest congestion, Denies hemoptysis, Denies excessive phlegm production and Denies dyspnea Gastrointestinal: Gastrointestinal: Denies abdominal pain, Denies hematochezia, Denies diarrhea, Reports nausea and Reports vomiting Genitourinary: Genitourinary: Denies hematuria, Denies dysuria, Denies penile discharge and Denies testicular pain Musculoskeletal: Musculoskeletal: Denies joint swelling, Denies loss of height and Denies muscle weakness Neurologic: Denies syncope, Denies focal weakness and Denies weakness PMFSH Past Medical History Medical History Anxiety Bacterial meningitis (2001) At age 4 months. Cyclic vomiting syndrome Suicide Tetrahydrocannabinol (THC) dependence Surgical History Surgical History No history of previous surgery Family History Family History Mother Hyperlipemia Father Hyperlipemia Social History Social History Social History: Surrogate decision maker: Donovan Chandler, father. Code status: Full code. Smoking status: Current every day smoker Tobacco type: e-cigarettes/vaping Alcohol intake: current Drinks per week: 4 Alcohol use details: 5-10 drinks per month Substance use: former Substance use type: marijuana and other Other substance usage details: medical marijuana Last use: 01/16/2021 Living arrangements: alone Additional living arrangements comments: The patient lives in [place] with his family. He is a student at [employer]. Additional occupation/education comments: Student at [employer]. Gender identity (if verbalized by the patient): Male Spiritual care concerns: No Exam Const: General: alert Nutritional Appearance: well nourished Orientation/consciousness: patient oriented x3 Other: patient hyperventilating HENMT: Head: normal to inspection Mouth: Yes Normal oral and palatal mucosa present, Yes lip normal and Yes moist mucous membranes Throat: posterior oropharynx normal Eyes: EOM: EOMs intact bilater
[2023-02-25] MEDS: PROMETHAZINE HCL 25 MG/ML AMPUL 12.5 MG IV PUSH ×2 (13:39→14:46)
[2023-02-25 13:56] LABS: Basophils Absolute Auto 0.1 K/mm3 (0.0-0.1); Basophils Percent Auto 0.5 % (0.2-1.2); Eosinophils Absolute Auto 0.1 K/mm3 (0-0.3); Eosinophils Percent Auto 1.3 % (0-4.4); Hematocrit 48.6 % (42.0-52.0); Hemoglobin 16.6 g/dL (14.0-18.0); Immature Granulocyte Absolute 0.08 K/mm3 (0.00-0.031); Immature Granulocyte Percent A 0.8 % (0-0.5); Lymphocytes Absolute Auto 0.98 K/mm3 (0.9-3.2); Lymphocytes Percent Auto 10.2 % (18.3-44.2); Mean Corpuscular HGB Conc 34.2 g/dl (32-36); Mean Corpuscular Hemoglobin 28.5 pg (26-34); Mean Corpuscular Volume 83.4 fl (80-100); Mean Platelet Volume 9.1 fl (7.4-10.4); Monocytes Absolute Auto 0.6 K/mm3 (0.1-0.6); Monocytes Percent Auto 6.1 % (2.6-8.5); Neutrophils Absolute Auto 7.8 K/mm3 (1.3-6.7); Neutrophils Percent Auto 81.1 % (45.5-73.1); Platelet Count Result 308 k/mm3 (150-375); Red Blood Count 5.83 M/mm3 (4.6-6.20); Red Cell Distribution Width 13.8 % (11.5-14.5); White Blood Count 9.6 K/mm3 (4.5-10.0)
[2023-02-25 14:08] LABS: Albumin Level 5.3 g/dL (3.5-5.1); Alkaline Phosphatase 105 U/L (38-126); Anion Gap 16 mmol/L (8-16); Aspartate Amino Transferase 83 U/L (17-59); Bilirubin,Total 1.2 mg/dL (0.2-1.3); Blood Urea Nitrogen 13 mg/dL (9-20); Calcium 9.9 mg/dL (8.4-10.2); Carbon Dioxide 20 mmol/L (22-30); Chloride 102 mmol/L (98-107); Estimated CRCL calculation 110 ml/min; Estimated Glomerular Filt Rate > 60; Glucose 106 mg/dL (65-110); Lipase 62 U/L (23-300); Potassium 3.7 mmol/L (3.4-5.0); Sodium 138 mmol/L (137-145)
[2023-02-25 14:13] LABS: Alanine Aminotransferase 79 U/L (6-50)
[2023-02-25 14:33] LABS: Appearance Urine Clear (Clear); Bacteria Urine None Seen /hpf; Bilirubin Urine 1+ (Negative); Blood Urine Negative (Negative); Color Urine Dark Yellow (Yellow); Glucose Urine UA Negative (Negative); Ketones Urine 4+ mg/dL (Negative); Leukocyte Esterase Ur Trace LEU/UL (Negative); Nitrate Urine Negative (Negative); Non Pathogenic Casts 0-2; Protein Urine 1+ mg/dL (Negative); RBC Urine 0-2 /hpf (0-2); Specific Grav Ur 1.032 (1.001-1.035); Squamous Epithelial Cell Urine None seen /hpf (Few); WBC Urine 0-5 /hpf
[2023-02-25 14:41] LABS: Add Urine Microscopic? YES
== END 2023-02-25 16:45 | disposition home or self-care (01) ==
PROVIDERS: Emergency Provider General Practice; PCP Student in an Organized Health Care Education/Training Program
DX: R11.15 Cyclical vomiting syndrome unrelated to migraine (principal); F41.9 Anxiety disorder, unspecified; R11.2 Nausea with vomiting, unspecified; F17.290 Nicotine dependence, other tobacco product, uncomplicated
CPT/HCPCS: 36415; 80053; 81001; 83690; 85025; 93005; 96361; 96374; 96375; 96376; 99284; J2060; J2550; J7120

== ENCOUNTER 2023-02-26 12:00 | Emergency (ER) | payer OTHER, SELFPAY ==
[2023-02-26 12:04] VITALS: BP 137/90; PULSE 100; RESP 16; TEMP 36.8; O2SAT 100
[2023-02-26] MEDS: SODIUM CHLORIDE 0.9% IV 1,000 ML 999 ML IV CONT (12:18)
[2023-02-26] MEDS: ONDANSETRON INJ 4 MG/2 ML VIAL IV PUSH (12:18)
[2023-02-26 12:20] VITALS: BP 126/92; PULSE 82; RESP 22; O2SAT 100
[2023-02-26 12:28] LABS: Basophils Percent Auto 0.5 % (0.2-1.2); Eosinophils Absolute Auto 0.1 K/mm3 (0-0.3); Eosinophils Percent Auto 1.2 % (0-4.4); Hematocrit 47.4 % (42.0-52.0); Hemoglobin 15.9 g/dL (14.0-18.0); Immature Granulocyte Absolute 0.04 K/mm3 (0.00-0.031); Immature Granulocyte Percent A 0.5 % (0-0.5); Lymphocytes Absolute Auto 1.27 K/mm3 (0.9-3.2); Lymphocytes Percent Auto 16.4 % (18.3-44.2); Mean Corpuscular HGB Conc 33.5 g/dl (32-36); Mean Corpuscular Hemoglobin 28.6 pg (26-34); Mean Corpuscular Volume 85.4 fl (80-100); Mean Platelet Volume 9.2 fl (7.4-10.4); Monocytes Absolute Auto 0.5 K/mm3 (0.1-0.6); Monocytes Percent Auto 5.8 % (2.6-8.5); Neutrophils Absolute Auto 5.9 K/mm3 (1.3-6.7); Neutrophils Percent Auto 75.6 % (45.5-73.1); Platelet Count Result 276 k/mm3 (150-375); Red Blood Count 5.55 M/mm3 (4.6-6.20); Red Cell Distribution Width 13.9 % (11.5-14.5); White Blood Count 7.7 K/mm3 (4.5-10.0)
[2023-02-26 12:37] LABS: Alanine Aminotransferase 64 U/L (6-50); Albumin Level 5.1 g/dL (3.5-5.1); Alkaline Phosphatase 85 U/L (38-126); Anion Gap 12 mmol/L (8-16); Aspartate Amino Transferase 65 U/L (17-59); Bilirubin,Total 0.7 mg/dL (0.2-1.3); Blood Urea Nitrogen 12 mg/dL (9-20); Calcium 9.7 mg/dL (8.4-10.2); Carbon Dioxide 24 mmol/L (22-30); Chloride 103 mmol/L (98-107); Estimated CRCL calculation 193 ml/min; Estimated Glomerular Filt Rate > 60; Glucose 110 mg/dL (65-110); Lipase 73 U/L (23-300); Potassium 3.9 mmol/L (3.4-5.0); Sodium 139 mmol/L (137-145)
--- NOTE | 2023-02-26 12:37 | ED.GENADULT ---
HPI - General Adult General Chief complaint: Nausea/Vomiting/Diarrhea Stated complaint: vomiting Time Seen by Provider: 02/26/23 12:04 History of Present Illness HPI narrative: 22-year-old male with history of anxiety, PTSD and THC use presents the emergency department for evaluation of persistent nausea vomiting anxiety. Patient reports that he had a previous issue with the THC and cyclic nausea and vomiting. Patient states that he had some THC on . Patient was evaluated emergency department yesterday for persistent nausea and vomiting. Patient was treated with Ativan Phenergan and IV fluids and did feel improved. After getting home patient states he did have worsening nausea and anxiety again. Patient states he has not used THC since. Related Data Home Medications Medication Instructions Recorded Confirmed olanzapine 5 mg tablet (Zyprexa) 5 mg PO BID 01/26/22 03/13/22 quetiapine 200 mg tablet (Seroquel) 200 mg PO QHS 01/26/22 03/13/22 aprepitant 80 mg capsule See Rx Instructions .Route .COMPLEX 03/13/22 03/13/22 esketamine 84 mg (28 mg x 3) nasal See Rx Instructions .Route .COMPLEX 03/13/22 03/13/22 spray (Spravato) vilazodone 40 mg tablet 1 tablet PO DAILY 03/13/22 03/13/22 clonazepam 0.5 mg tablet 0.5 mg PO DAILY 11/09/22 Allergies Allergy/AdvReac Type Severity Reaction Status Date / Time haloperidol [From Haldol] Allergy Intermediate Muscle Verified 02/26/23 12:49 Spasms Review of Systems Review of Systems: All systems reviewed & are unremarkable except as noted in HPI and below PMFSH Past Medical History Medical History Anxiety Bacterial meningitis (2001) At age 4 months. Cyclic vomiting syndrome Suicide Tetrahydrocannabinol (THC) dependence Surgical History Surgical History No history of previous surgery Family History Family History Mother Hyperlipemia Father Hyperlipemia Social History Social History Social History: Surrogate decision maker: Donovan Chandler, father. Code status: Full code. Smoking status: Current every day smoker Tobacco type: e-cigarettes/vaping Alcohol intake: current Drinks per week: 4 Alcohol use details: 5-10 drinks per month Substance use: former Substance use type: marijuana and other Other substance usage details: medical marijuana Last use: 01/16/2021 Living arrangements: alone Additional living arrangements comments: The patient lives in [place] with his family. He is a student at [employer]. Additional occupation/education comments: Student at [employer]. Gender identity (if verbalized by the patient): Male Spiritual care concerns: No Exam Narrative: APPEARANCE: Mild hyperventilation and nausea with dry heaves on arrival HEAD: normocephalic, atraumatic. EYES: PERRLA/EOMI, conjunctivae clear. NOSE: Normal no drainage NECK: Supple. No adenopathy, no masses. RESPIRATORY: Airway patent, respirations nonlabored. Clear to auscultation bilaterally, no rales, rhonchi, wheezing. CARDIOVASCULAR: Regular rate and rhythm without murmurs rubs or gallops. ABDOMINAL: Soft, nontender, nondistended, normal bowel sounds MUSCULOSKELETAL: Moves all extremities. Strength/ROM intact, No edema, No calf tenderness. NEURO: Alert. Cranial nerves II through XII intact. Grossly intact SKIN: Warm, dry. Normal Color Psychiatric: Anxiety Course Course Emergency Course: 22-year-old male with history of cyclic vomiting anxiety PTSD presented the ED for evaluation of nausea and vomiting. Patient was treated with IV fluids and IV Zofran. Baseline labs were reordered to check for electrolyte abnormalities or concern for underlying infection. Patient was updated on the plan for treatment of his symptoms an
--- NOTE | 2023-02-26 12:43 | PC.NURSE ---
pt sts that he feels better and is less nauseous.
--- NOTE | 2023-02-26 12:51 | PC.NURSE ---
pt sts that he drinks 1-2x/w
--- NOTE | 2023-02-26 13:41 | PC.NURSE ---
pt denies n/v/d at this time. pt sts that he is feeling better. oral mucosa is within baseline
[2023-02-26 13:50] VITALS: BP 112/62; PULSE 88; RESP 18; O2SAT 98
[2023-02-26 14:40] VITALS: BP 131/71; PULSE 92; RESP 17; O2SAT 94
== END 2023-02-26 14:41 | disposition home or self-care (01) ==
PROVIDERS: Emergency Provider Emergency Medicine; PCP Student in an Organized Health Care Education/Training Program
DX: R11.2 Nausea with vomiting, unspecified (principal); F17.219 Nicotine dependence, cigarettes, with unspecified nicotine-induced disorders
CPT/HCPCS: 36415; 80053; 83690; 85025; 96361; 96374; 99284; J2405; J7030

== ENCOUNTER 2023-02-27 06:50 | Emergency (ER) | payer OTHER, SELFPAY ==
[2023-02-27] VITALS (26 sets, daily range): BP systolic 130–161; BP diastolic 84–119; PULSE 80–109; RESP 9–25; TEMP 36.7; O2SAT 93–100
--- NOTE | 2023-02-27 07:12 | ED.NAVMDI ---
HPI - Nausea/Vomiting/Diarrhea General Chief complaint: Nausea/Vomiting/Diarrhea Stated complaint: N/V Time Seen by Provider: 02/27/23 07:01 Source: patient and RN notes reviewed Mode of arrival: ambulatory Limitations: no limitations History of Present Illness HPI Narrative: This is a 22 year old male with history of anxiety and cyclic vomiting who presents for evaluation of anxiety and vomiting. Patient has been in ER everyday for past 3 days for anxiety nausea and vomiting. He was prescribed phenergan and zofran. He took phenergan last night and he took zofran this morning. He states this morning he had nonbilious emesis without any blood. He has continued to dry heave. He denies fever, chills, diarrhea or abdominal pain. He states he is having major problem with his anxiety. He has not smoked marijuana since . Related Data Home Medications Medication Instructions Recorded Confirmed olanzapine 5 mg tablet (Zyprexa) 5 mg PO BID 01/26/22 03/13/22 quetiapine 200 mg tablet (Seroquel) 200 mg PO QHS 01/26/22 03/13/22 aprepitant 80 mg capsule See Rx Instructions .Route .COMPLEX 03/13/22 03/13/22 esketamine 84 mg (28 mg x 3) nasal See Rx Instructions .Route .COMPLEX 03/13/22 03/13/22 spray (Spravato) vilazodone 40 mg tablet 1 tablet PO DAILY 03/13/22 03/13/22 clonazepam 0.5 mg tablet 0.5 mg PO DAILY 11/09/22 Allergies Allergy/AdvReac Type Severity Reaction Status Date / Time haloperidol [From Haldol] Allergy Intermediate Muscle Verified 02/27/23 07:32 Spasms Review of Systems Constitutional: Constitutional: Denies weakness Cardiovascular: Cardiovascular: Denies syncope, Denies rapid heart rate, Denies irregular heart rhythm, Denies leg edema and Denies dyspnea Respiratory: Respiratory: Denies chest congestion, Denies hemoptysis, Denies excessive phlegm production and Denies dyspnea Gastrointestinal: Gastrointestinal: Denies abdominal pain, Denies hematochezia, Denies diarrhea, Reports nausea and Reports vomiting Genitourinary: Genitourinary: Denies hematuria, Denies dysuria, Denies penile discharge and Denies testicular pain Musculoskeletal: Musculoskeletal: Denies joint swelling, Denies loss of height and Denies muscle weakness Neurologic: Denies syncope, Denies focal weakness and Denies weakness Psychiatric: Psychiatric: Reports anxiety PMFSH Past Medical History Medical History Anxiety Bacterial meningitis (2001) At age 4 months. Cyclic vomiting syndrome Suicide Tetrahydrocannabinol (THC) dependence Surgical History Surgical History No history of previous surgery Family History Family History Mother Hyperlipemia Father Hyperlipemia Social History Social History Social History: Surrogate decision maker: Donovan Chandler, . Code status: Full code. Smoking status: Current every day smoker Tobacco type: e-cigarettes/vaping Alcohol intake: current Drinks per week: 4 Alcohol use details: 5-10 drinks per month Substance use: former Substance use type: marijuana and other Other substance usage details: medical marijuana Last use: 01/16/2021 Living arrangements: alone Additional living arrangements comments: The patient lives in [place] with his family. He is a student at [employer]. Additional occupation/education comments: Student at [employer]. Gender identity (if verbalized by the patient): Male Spiritual care concerns: No Exam Const: General: alert Nutritional Appearance: well nourished Orientation/consciousness: patient oriented x3 Limitations: no limitations HENMT: Head: normal to inspection Face and sinus: normal facial exam Mouth: Yes Normal oral and palatal mucosa present, Yes lip normal and Yes moist mucous
[2023-02-27] MEDS: LACTATED RINGERS 1,000 ML 999 ML IV CONT ×2 (07:23→08:50)
[2023-02-27] MEDS: PROMETHAZINE HCL 25 MG/ML AMPUL 12.5 MG IV PUSH (07:23)
[2023-02-27 07:27] LABS: Basophils Percent Auto 0.5 % (0.2-1.2); Eosinophils Absolute Auto 0.1 K/mm3 (0-0.3); Eosinophils Percent Auto 1.1 % (0-4.4); Hematocrit 44.3 % (42.0-52.0); Immature Granulocyte Absolute 0.04 K/mm3 (0.00-0.031); Immature Granulocyte Percent A 0.5 % (0-0.5); Lymphocytes Absolute Auto 1.98 K/mm3 (0.9-3.2); Lymphocytes Percent Auto 24.8 % (18.3-44.2); Mean Corpuscular HGB Conc 33.9 g/dl (32-36); Mean Corpuscular Hemoglobin 28.6 pg (26-34); Mean Corpuscular Volume 84.5 fl (80-100); Monocytes Absolute Auto 0.6 K/mm3 (0.1-0.6); Monocytes Percent Auto 6.9 % (2.6-8.5); Neutrophils Absolute Auto 5.3 K/mm3 (1.3-6.7); Neutrophils Percent Auto 66.2 % (45.5-73.1); Platelet Count Result 256 k/mm3 (150-375); Red Blood Count 5.24 M/mm3 (4.6-6.20); Red Cell Distribution Width 13.9 % (11.5-14.5)
[2023-02-27] MEDS: LORazepam INJ (*CRX) 2 MG/ML VIAL 1 MG IV PUSH (07:27)
[2023-02-27 07:39] LABS: Alanine Aminotransferase 53 U/L (6-50); Albumin Level 4.9 g/dL (3.5-5.1); Alkaline Phosphatase 82 U/L (38-126); Anion Gap 13 mmol/L (8-16); Aspartate Amino Transferase 59 U/L (17-59); Bilirubin,Total 0.6 mg/dL (0.2-1.3); Blood Urea Nitrogen 10 mg/dL (9-20); Calcium 9.5 mg/dL (8.4-10.2); Carbon Dioxide 21 mmol/L (22-30); Chloride 106 mmol/L (98-107); Estimated CRCL calculation 107 ml/min; Estimated Glomerular Filt Rate > 60; Glucose 116 mg/dL (65-110); Potassium 3.4 mmol/L (3.4-5.0); Sodium 140 mmol/L (137-145)
[2023-02-27 07:43] LABS: Appearance Urine Turbid (Clear); Bacteria Urine None Seen /hpf; Bilirubin Urine Negative (Negative); Blood Urine Negative (Negative); Color Urine Yellow (Yellow); Glucose Urine UA Negative (Negative); Ketones Urine Trace mg/dL (Negative); Leukocyte Esterase Ur Negative LEU/UL (Negative); Nitrate Urine Negative (Negative); Non Pathogenic Casts 0-2; Protein Urine Trace mg/dL (Negative); RBC Urine 0-2 /hpf (0-2); Specific Grav Ur 1.015 (1.001-1.035); Squamous Epithelial Cell Urine None seen /hpf (Few); WBC Urine 0-5 /hpf
[2023-02-27 07:44] LABS: Add Urine Microscopic? YES
[2023-02-27 07:53] LABS: Amphetamine Screen Urine Negative (Negative); Barbiturate Screen Urine Negative (Negative); Benzodiazepines Screen Urine Negative (Negative); Cannabinoid Screen Urine Positive (Negative); Cocaine Screen Urine Negative (Negative); Methadone Screen Urine Negative (Negative); Opiate Screen Urine Negative (Negative); Phencyclidine Screen Urine Negative (Negative)
[2023-02-27] MEDS: hydrOXYzine HCL 25 MG TABLET 50 MG PO (09:08)
[2023-02-27] MEDS: ONDANSETRON INJ 4 MG/2 ML VIAL IV PUSH (09:08)
== END 2023-02-27 11:16 | disposition home or self-care (01) ==
PROVIDERS: Emergency Provider General Practice; PCP Student in an Organized Health Care Education/Training Program
DX: F41.9 Anxiety disorder, unspecified (principal); R11.15 Cyclical vomiting syndrome unrelated to migraine; F17.290 Nicotine dependence, other tobacco product, uncomplicated; Z79.899 Other long term (current) drug therapy
CPT/HCPCS: 36415; 80053; 80307; 81001; 85025; 96361; 96374; 96375; 99284; A9270; J2060; J2405; J2550; J7120

== ENCOUNTER 2023-03-09 12:30 | Emergency (ER) | payer OTHER, SELFPAY ==
--- NOTE | ~2023-03-09 | XR_ITS ---
EXAMINATION: XR chest 1V portable DATE: 03/09/2023 13:15 INDICATION: Left chest pain. TECHNIQUE: A single frontal view of the chest was obtained. COMPARISON: Chest single view 01/17/2021, CT abdomen and pelvis 05/30/2012 FINDINGS: There is mild atelectasis in the lower lung zones. No pleural effusion or pneumothorax. The heart size is normal. IMPRESSION: 1. Mild atelectasis in the lower lung zones. Reviewed, dictated and finalized at location A.
[2023-03-09 12:35] VITALS: BP 134/84; PULSE 96; RESP 18; TEMP 36.2; O2SAT 99
--- NOTE | 2023-03-09 13:00 | ECG_ITS ---
Measurements Intervals [place] Rate: 84 P: 13 [place]: 160 QRS: 61 QRSD: 109 T: 32 QT: 351 QTc: 416 Interpretive Statements SINUS RHYTHM INCOMPLETE RIGHT BUNDLE BRANCH BLOCK BORDERLINE ECG COMPARED TO ECG 02/25/2023 13:55:26 NO SIGNIFICANT CHANGES Electronically Signed On 03-09-2023 13:40:43 CDT by Mansoor Carbajal D.O.
[2023-03-09 13:15] LABS: Basophils Absolute Auto 0.1 K/mm3 (0.0-0.1); Basophils Percent Auto 0.7 % (0.2-1.2); Eosinophils Absolute Auto 0.3 K/mm3 (0-0.3); Eosinophils Percent Auto 3.1 % (0-4.4); Hematocrit 46.6 % (42.0-52.0); Hemoglobin 15.7 g/dL (14.0-18.0); Immature Granulocyte Absolute 0.05 K/mm3 (0.00-0.031); Immature Granulocyte Percent A 0.6 % (0-0.5); Lymphocytes Absolute Auto 1.26 K/mm3 (0.9-3.2); Lymphocytes Percent Auto 15.7 % (18.3-44.2); Mean Corpuscular HGB Conc 33.7 g/dl (32-36); Mean Corpuscular Volume 86.1 fl (80-100); Mean Platelet Volume 9.2 fl (7.4-10.4); Monocytes Absolute Auto 0.6 K/mm3 (0.1-0.6); Monocytes Percent Auto 7.6 % (2.6-8.5); Neutrophils Absolute Auto 5.8 K/mm3 (1.3-6.7); Neutrophils Percent Auto 72.3 % (45.5-73.1); Platelet Count Result 254 k/mm3 (150-375); Red Blood Count 5.41 M/mm3 (4.6-6.20); Red Cell Distribution Width 13.7 % (11.5-14.5)
[2023-03-09 13:24] LABS: Alanine Aminotransferase 49 U/L (6-50); Albumin Level 4.6 g/dL (3.5-5.1); Alkaline Phosphatase 71 U/L (38-126); Anion Gap 8 mmol/L (8-16); Aspartate Amino Transferase 41 U/L (17-59); Bilirubin,Total 0.5 mg/dL (0.2-1.3); Blood Urea Nitrogen 10 mg/dL (9-20); Calcium 9.4 mg/dL (8.4-10.2); Carbon Dioxide 28 mmol/L (22-30); Chloride 103 mmol/L (98-107); Estimated CRCL calculation 130 ml/min; Estimated Glomerular Filt Rate > 60; Glucose 103 mg/dL (65-110); Lipase 49 U/L (23-300); Potassium 4.6 mmol/L (3.4-5.0); Sodium 139 mmol/L (137-145)
[2023-03-09 13:33] LABS: INR 0.9; Prothrombin Time 12.8 Seconds (11.1-14.7)
[2023-03-09 13:34] LABS: Partial Thromboplastin Time 29.6 SECONDS (22.3-36.8)
[2023-03-09 13:36] LABS: Troponin I < 0.012 ng/mL (0.000-0.034)
--- NOTE | 2023-03-09 14:45 | ED.ABDPAIN ---
HPI - Abdominal Pain General Chief Complaint: Abdominal Pain Stated Complaint: abd pain Time Seen by Provider: 03/09/23 13:07 History of Present Illness HPI narrative: 22-year-old male presented to the emergency department for evaluation of left lower rib pain. Patient reports that he did have some previous episodes of nausea and vomiting, did do a golf simulator and possibly injured self and was moving a heavy barrel when he had onset of left lower rib pain. Patient complains of left lower rib pain that is nonradiating. Patient denies any shortness of breath with this. Related Data Home Medications Medication Instructions Recorded Confirmed olanzapine 5 mg tablet (Zyprexa) 5 mg PO BID 01/26/22 03/13/22 quetiapine 200 mg tablet (Seroquel) 200 mg PO QHS 01/26/22 03/13/22 aprepitant 80 mg capsule See Rx Instructions .Route .COMPLEX 03/13/22 03/13/22 esketamine 84 mg (28 mg x 3) nasal See Rx Instructions .Route .COMPLEX 03/13/22 03/13/22 spray (Spravato) vilazodone 40 mg tablet 1 tablet PO DAILY 03/13/22 03/13/22 clonazepam 0.5 mg tablet 0.5 mg PO DAILY 11/09/22 Allergies Allergy/AdvReac Type Severity Reaction Status Date / Time haloperidol [From Haldol] Allergy Intermediate Muscle Verified 02/27/23 07:32 Spasms Review of Systems Review of Systems: All systems reviewed & are unremarkable except as noted in HPI and below PMFSH Past Medical History Medical History Anxiety Bacterial meningitis (2001) At age 4 months. Cyclic vomiting syndrome Suicide Tetrahydrocannabinol (THC) dependence Surgical History Surgical History No history of previous surgery Family History Family History Mother Hyperlipemia Father Hyperlipemia Social History Social History Social History: Surrogate decision maker: Donovan Chandler, father. Code status: Full code. Smoking status: Current every day smoker Tobacco type: e-cigarettes/vaping Alcohol intake: current Drinks per week: 4 Alcohol use details: 5-10 drinks per month Substance use: former Substance use type: marijuana and other Other substance usage details: medical marijuana Last use: 01/16/2021 Living arrangements: alone Additional living arrangements comments: The patient lives in [place] with his family. He is a student at [employer]. Additional occupation/education comments: Student at [employer]. Gender identity (if verbalized by the patient): Male Spiritual care concerns: No Exam Narrative: APPEARANCE: Well appearing, no pain, no distress, well-nourished. HEAD: normocephalic, atraumatic. EYES: PERRLA/EOMI, conjunctivae clear. NOSE: Normal no drainage NECK: Supple. No adenopathy, no masses. RESPIRATORY: Airway patent, respirations nonlabored. Clear to auscultation bilaterally, no rales, rhonchi, wheezing. CARDIOVASCULAR: Regular rate and rhythm without murmurs rubs or gallops. ABDOMINAL: Soft, nontender, nondistended, normal bowel sounds MUSCULOSKELETAL: Moves all extremities. Reproducible left lateral rib tenderness to palpation NEURO: Alert. Cranial nerves II through XII intact. Grossly intact SKIN: Warm, dry. Normal Color Course Course Emergency Course: 22-year-old male presented the ED for evaluation of left lower rib pain. Chest x-ray shows no acute cardiopulmonary malady. Patient is afebrile with no leukocytosis. Patient's pain is very reproducible and patient has a negative troponin. Patient is being treated as a rib fracture/rib contusion. No evidence of pneumothorax. Patient family are updated results of the work-up they are comfortable with the plan with discharge and close follow-up. Vital Signs Vital signs: Vital Signs Temperature 97.2 F L 03/09/23 12:35 Pulse Rate
[2023-03-09] MEDS: CYCLOBENZAPRINE HCL 10 MG TABLET PO (14:55)
[2023-03-09] MEDS: KETOROLAC 15 MG/ML VIAL (*BKC) IV PUSH (14:55)
[2023-03-09] MEDS: HYDROcodone/acetaminophen (*CRX) 5-325 MG TABLET 1 TAB PO (14:55)
[2023-03-09 14:58] VITALS: BP 132/72; PULSE 79; RESP 17; O2SAT 98
== END 2023-03-09 15:04 | disposition home or self-care (01) ==
PROVIDERS: Emergency Medicine; Emergency Provider Emergency Medicine; PCP Student in an Organized Health Care Education/Training Program
DX: R07.81 Pleurodynia (principal); F41.9 Anxiety disorder, unspecified; F17.290 Nicotine dependence, other tobacco product, uncomplicated
CPT/HCPCS: 36415; 71045; 80053; 83690; 84484; 85025; 85610; 85730; 93005; 96374; 99284; A9270; J1885

== ENCOUNTER 2023-03-19 14:31 | Emergency (ER) | payer OTHER, SELFPAY ==
[2023-03-19 14:49] VITALS: BP 155/99; PULSE 87; RESP 16; TEMP 36.2; O2SAT 100
[2023-03-19 14:50] VITALS: BP 155/99; PULSE 86; RESP 16; TEMP 36.5; O2SAT 100
[2023-03-19 15:31] LABS: Basophils Absolute Auto 0.1 K/mm3 (0.0-0.1); Basophils Percent Auto 0.4 % (0.2-1.2); Eosinophils Percent Auto 0.2 % (0-4.4); Hemoglobin 15.8 g/dL (14.0-18.0); Immature Granulocyte Absolute 0.14 K/mm3 (0.00-0.031); Immature Granulocyte Percent A 1.1 % (0-0.5); Lymphocytes Absolute Auto 0.91 K/mm3 (0.9-3.2); Lymphocytes Percent Auto 7.3 % (18.3-44.2); Mean Corpuscular HGB Conc 34.3 g/dl (32-36); Mean Corpuscular Hemoglobin 28.8 pg (26-34); Mean Corpuscular Volume 83.8 fl (80-100); Monocytes Absolute Auto 0.6 K/mm3 (0.1-0.6); Monocytes Percent Auto 5.1 % (2.6-8.5); Neutrophils Absolute Auto 10.8 K/mm3 (1.3-6.7); Neutrophils Percent Auto 85.9 % (45.5-73.1); Platelet Count Result 337 k/mm3 (150-375); Red Blood Count 5.49 M/mm3 (4.6-6.20); Red Cell Distribution Width 13.3 % (11.5-14.5); White Blood Count 12.6 K/mm3 (4.5-10.0)
[2023-03-19 15:45] LABS: Alanine Aminotransferase 68 U/L (6-50); Albumin Level 5.3 g/dL (3.5-5.1); Alkaline Phosphatase 89 U/L (38-126); Anion Gap 19 mmol/L (8-16); Aspartate Amino Transferase 67 U/L (17-59); Bilirubin,Total 1.2 mg/dL (0.2-1.3); Blood Urea Nitrogen 15 mg/dL (9-20); Calcium 9.9 mg/dL (8.4-10.2); Carbon Dioxide 18 mmol/L (22-30); Chloride 102 mmol/L (98-107); Estimated CRCL calculation 117 ml/min; Estimated Glomerular Filt Rate > 60; Glucose 126 mg/dL (65-110); Lipase 74 U/L (23-300); Potassium 3.8 mmol/L (3.4-5.0); Sodium 139 mmol/L (137-145)
[2023-03-19 17:16] LABS: Add Urine Microscopic? YES; Appearance Urine Clear (Clear); Bacteria Urine None Seen /hpf; Bilirubin Urine Negative (Negative); Blood Urine Negative (Negative); Color Urine Yellow (Yellow); Glucose Urine UA Negative (Negative); Ketones Urine 4+ mg/dL (Negative); Leukocyte Esterase Ur Negative LEU/UL (Negative); Nitrate Urine Negative (Negative); Non Pathogenic Casts 0-2; Protein Urine 1+ mg/dL (Negative); RBC Urine 0-2 /hpf (0-2); Specific Grav Ur 1.025 (1.001-1.035); Squamous Epithelial Cell Urine None seen /hpf (Few); WBC Urine 0-5 /hpf; pH Urine >=9.0 (5.0-9.0)
--- NOTE | 2023-03-19 17:22 | ED.GENADULT ---
HPI - General Adult General Chief complaint: Nausea/Vomiting/Diarrhea Stated complaint: N/V Time Seen by Provider: 03/19/23 17:03 Source: patient Mode of arrival: ambulatory Limitations: no limitations History of Present Illness HPI narrative: This is a 22-year-old male who presents to the ED with chief complaint of nausea and vomiting ongoing since 10 AM. Patient states that he has history of cyclic vomiting syndrome and feels that this is likely what is going on today. States she smoked weed last night and this morning which seem to onset his vomiting today. He states he has been in the ER more than 10 times in the past 2 years for the same problem. Denies any abdominal pain. He has a recent rib injury that has been hurting due to the retching, but denies any further site of pain. Endorses anxiety. Denies problems with bowel movements. Denies hematemesis or GI bleeding symptoms. Denies fevers, chills, sick contacts, flank pain, urinary symptoms. Related Data Home Medications Medication Instructions Recorded Confirmed olanzapine 5 mg tablet (Zyprexa) 5 mg PO BID 01/26/22 03/13/22 quetiapine 200 mg tablet (Seroquel) 200 mg PO QHS 01/26/22 03/13/22 aprepitant 80 mg capsule See Rx Instructions .Route .COMPLEX 03/13/22 03/13/22 esketamine 84 mg (28 mg x 3) nasal See Rx Instructions .Route .COMPLEX 03/13/22 03/13/22 spray (Spravato) vilazodone 40 mg tablet 1 tablet PO DAILY 03/13/22 03/13/22 clonazepam 0.5 mg tablet 0.5 mg PO DAILY 11/09/22 Allergies Allergy/AdvReac Type Severity Reaction Status Date / Time haloperidol [From Haldol] Allergy Intermediate Muscle Verified 02/27/23 07:32 Spasms PMFSH Past Medical History Medical History Anxiety Bacterial meningitis (2001) At age 4 months. Cyclic vomiting syndrome Suicide Tetrahydrocannabinol (THC) dependence Surgical History Surgical History No history of previous surgery Family History Family History Mother Hyperlipemia Father Hyperlipemia Social History Social History Social History: Surrogate decision maker: Donovan Chandler, . Code status: Full code. Smoking status: Current every day smoker Tobacco type: e-cigarettes/vaping Alcohol intake: current Drinks per week: 4 Alcohol use details: 5-10 drinks per month Substance use: former Substance use type: marijuana and other Other substance usage details: medical marijuana Last use: 01/16/2021 Living arrangements: alone Additional living arrangements comments: The patient lives in [place] with his family. He is a student at [employer]. Additional occupation/education comments: Student at [employer]. Gender identity (if verbalized by the patient): Male Spiritual care concerns: No Exam Narrative: GENERAL: He is retching when I enter the room. HEAD: Normocephalic, atraumatic. EYES: PERRLA and EOMI. ENT: Nares clear, no rhinorrhea or epistaxis. Mucous membranes moist. Oropharynx without tonsillar hypertrophy exudate or other lesions. NECK: Supple. No adenopathy or masses. CHEST: No respiratory distress. Clear to auscultation. No wheezes rales or rhonchi HEART: Regular rate and rhythm. No murmur heard. Normal peripheral pulses. ABDOMEN: Soft, nontender, nondistended, normal active bowel sounds. MSK: Normal range of motion. No edema. SKIN: Warm, dry, no rash. NEURO: Alert and oriented x3. No focal deficits. PSYCH: Anxious mood. Pacing around the room. Course Vital Signs Vital signs: Vital Signs Temperature 97.2 F L 03/19/23 14:49 Pulse Rate 87 03/19/23 14:49 Respiratory Rate 16 03/19/23 14:49 Blood Pressure 155/99 H 03/19/23 14:49 Pulse Oximetry 100 03/19/23 14:49 Temperature 97.7 F 03/19/23 14:5
[2023-03-19] MEDS: SODIUM CHLORIDE 0.9% IV 1,000 ML 999 ML IV CONT (17:38)
[2023-03-19] MEDS: PROMETHAZINE HCL 25 MG/ML AMPUL 12.5 MG IV PUSH (17:39)
[2023-03-19] MEDS: LORazepam INJ (*CRX) 2 MG/ML VIAL 0.5 MG IV PUSH (17:42)
== END 2023-03-19 18:53 | disposition home or self-care (01) ==
PROVIDERS: Emergency Medicine; Emergency Provider Physician Assistant; PCP Student in an Organized Health Care Education/Training Program
DX: R11.15 Cyclical vomiting syndrome unrelated to migraine (principal); F12.20 Cannabis dependence, uncomplicated; F17.290 Nicotine dependence, other tobacco product, uncomplicated; F41.9 Anxiety disorder, unspecified
CPT/HCPCS: 36415; 80053; 81001; 83690; 85025; 96361; 96374; 96375; 99284; J2060; J2550; J7030

== ENCOUNTER 2023-03-20 09:35 | Emergency (ER) | payer OTHER, SELFPAY ==
[2023-03-20 09:36] VITALS: BP 144/96; PULSE 102; RESP 22; TEMP 36.8; O2SAT 100
--- NOTE | 2023-03-20 09:58 | PC.NURSE ---
Sitting on cart loudly wretching, no emesis noted. Pt reports he feels anxious because his parents are out of town.
[2023-03-20] MEDS: PROMETHAZINE HCL 25 MG/ML AMPUL IM (10:37)
[2023-03-20] MEDS: LORazepam INJ (*CRX) 2 MG/ML VIAL 1 MG IM (10:37)
--- NOTE | 2023-03-20 11:06 | ED.NAVMDI ---
HPI - Nausea/Vomiting/Diarrhea General Chief complaint: Nausea/Vomiting/Diarrhea Stated complaint: N/V Time Seen by Provider: 03/20/23 09:58 History of Present Illness HPI Narrative: Patient with history of cannabinoid hyperemesis syndrome presents here stating that he thinks he is having another episode, he has multiple presentations for this in the past, he did state that he had been off of marijuana for 7 months but actually started smoking again recently and the nausea started back up. He has not smoked in the last 4 days and is going to try to quit. States he is feeling quite anxious, his family is out of town and he thinks that is making his anxiety worse. Related Data Home Medications Medication Instructions Recorded Confirmed olanzapine 5 mg tablet (Zyprexa) 5 mg PO BID 01/26/22 03/13/22 quetiapine 200 mg tablet (Seroquel) 200 mg PO QHS 01/26/22 03/13/22 aprepitant 80 mg capsule See Rx Instructions .Route .COMPLEX 03/13/22 03/13/22 esketamine 84 mg (28 mg x 3) nasal See Rx Instructions .Route .COMPLEX 03/13/22 03/13/22 spray (Spravato) vilazodone 40 mg tablet 1 tablet PO DAILY 03/13/22 03/13/22 clonazepam 0.5 mg tablet 0.5 mg PO DAILY 11/09/22 Allergies Allergy/AdvReac Type Severity Reaction Status Date / Time haloperidol [From Haldol] Allergy Intermediate Muscle Verified 03/20/23 09:53 Spasms Review of Systems Review of Systems: CONST: No fever. HEENT: No sore throat C/V: No chest pain RESP: No cough GI: Nausea, vomiting : No dysuria. M/S: No joint pain. SKIN: No rash. NEURO: [No headache or focal numbness or weakness] PSYCH: Anxiety PMFSH Past Medical History Medical History Anxiety Bacterial meningitis (2001) At age 4 months. Cyclic vomiting syndrome Suicide Tetrahydrocannabinol (THC) dependence Surgical History Surgical History No history of previous surgery Family History Family History Mother Hyperlipemia Father Hyperlipemia Social History Social History Social History: Surrogate decision maker: Donovan Chandler, . Code status: Full code. Smoking status: Current every day smoker Tobacco type: e-cigarettes/vaping Alcohol intake: current Drinks per week: 4 Alcohol use details: 5-10 drinks per month Substance use: former Substance use type: marijuana and other Other substance usage details: medical marijuana Last use: 01/16/2021 Living arrangements: alone Additional living arrangements comments: The patient lives in [place] with his family. He is a student at [employer]. Additional occupation/education comments: Student at [employer]. Gender identity (if verbalized by the patient): Male Spiritual care concerns: No Exam Narrative: EXAMINATION OF ORGAN SYSTEMS/BODY AREAS: Constitutional: Vital signs per nursing GENERAL: Anxious, dry heaving loudly, pacing the room HEAD: Normal with no signs of head trauma. EYES: EOMI, conjunctiva normal ENT: Hearing grossly intact LUNGS: Nonlabored breathing. HEART: [Regular rate and rhythm] ABD: [Soft], [nontender to palpation] EXT: Normal range of motion SKIN: [No rashes or lesions.] NEURO: [Alert and oriented x 3. No gross focal sensory or strength deficits.] PSYCH: Anxious affect Course Vital Signs Vital signs: Vital Signs Temperature 98.2 F 03/20/23 09:36 Pulse Rate 102 H 03/20/23 09:36 Respiratory Rate 22 H 03/20/23 09:36 Blood Pressure 144/96 H 03/20/23 09:36 Pulse Oximetry 100 03/20/23 09:36 Temperature 98.2 F 03/20/23 09:36 Pulse Rate 102 H 03/20/23 09:36 Respiratory Rate 22 H 03/20/23 09:36 Blood Pressure 144/96 H 03/20/23 09:36 Pulse Oximetry 100 03/20/23 09:36 MDM - Nausea/Vomiting/Diarrhea MDM N
[2023-03-20] MEDS: METOCLOPRAMIDE HCL INJ 10 MG/2 ML VIAL IV PUSH (11:35)
[2023-03-20] MEDS: LACTATED RINGERS 1,000 ML 999 ML IV CONT (11:35)
[2023-03-20] MEDS: diphenhydrAMINE HCl INJ 50 MG/ML VIAL IV PUSH (11:36)
[2023-03-20 11:54] VITALS: BP 125/90; PULSE 87; RESP 16; O2SAT 99
== END 2023-03-20 12:32 | disposition home or self-care (01) ==
PROVIDERS: Emergency Provider Emergency Medicine; PCP Student in an Organized Health Care Education/Training Program
DX: R11.2 Nausea with vomiting, unspecified (principal); F12.90 Cannabis use, unspecified, uncomplicated; F41.9 Anxiety disorder, unspecified; F17.290 Nicotine dependence, other tobacco product, uncomplicated
CPT/HCPCS: 96361; 96372; 96374; 96375; 99284; J1200; J2060; J2550; J2765; J7120

== ENCOUNTER 2023-03-21 10:38 | Emergency (ER) | payer OTHER, SELFPAY ==
[2023-03-21 11:09] VITALS: BP 126/61; PULSE 100; RESP 20; TEMP 36.2; O2SAT 100
[2023-03-21 11:18] VITALS: O2SAT 98
[2023-03-21] MEDS: METOCLOPRAMIDE HCL INJ 10 MG/2 ML VIAL IV PUSH (11:49)
[2023-03-21] MEDS: SODIUM CHLORIDE 0.9% IV 1,000 ML 999 ML IV CONT (11:50)
[2023-03-21] MEDS: diphenhydrAMINE HCl INJ 50 MG/ML VIAL 25 MG IV PUSH (11:51)
[2023-03-21 11:59] LABS: Basophils Absolute Auto 0.1 K/mm3 (0.0-0.1); Basophils Percent Auto 0.6 % (0.2-1.2); Eosinophils Absolute Auto 0.1 K/mm3 (0-0.3); Eosinophils Percent Auto 1.1 % (0-4.4); Hemoglobin 14.7 g/dL (14.0-18.0); Immature Granulocyte Absolute 0.05 K/mm3 (0.00-0.031); Immature Granulocyte Percent A 0.6 % (0-0.5); Lymphocytes Absolute Auto 1.18 K/mm3 (0.9-3.2); Lymphocytes Percent Auto 14.7 % (18.3-44.2); Mean Corpuscular HGB Conc 34.2 g/dl (32-36); Mean Corpuscular Hemoglobin 28.7 pg (26-34); Monocytes Absolute Auto 0.4 K/mm3 (0.1-0.6); Monocytes Percent Auto 5.5 % (2.6-8.5); Neutrophils Absolute Auto 6.2 K/mm3 (1.3-6.7); Neutrophils Percent Auto 77.5 % (45.5-73.1); Platelet Count Result 300 k/mm3 (150-375); Red Blood Count 5.12 M/mm3 (4.6-6.20); Red Cell Distribution Width 13.9 % (11.5-14.5); White Blood Count 8.1 K/mm3 (4.5-10.0)
[2023-03-21 12:11] LABS: Alanine Aminotransferase 48 U/L (6-50); Albumin Level 4.8 g/dL (3.5-5.1); Alkaline Phosphatase 76 U/L (38-126); Anion Gap 14 mmol/L (8-16); Aspartate Amino Transferase 64 U/L (17-59); Bilirubin,Total 1.2 mg/dL (0.2-1.3); Blood Urea Nitrogen 11 mg/dL (9-20); Calcium 9.3 mg/dL (8.4-10.2); Carbon Dioxide 18 mmol/L (22-30); Chloride 105 mmol/L (98-107); Estimated CRCL calculation 122 ml/min; Estimated Glomerular Filt Rate > 60; Glucose 101 mg/dL (65-110); Lipase 60 U/L (23-300); Potassium 3.5 mmol/L (3.4-5.0); Sodium 137 mmol/L (137-145)
[2023-03-21 12:24] LABS: Appearance Urine Clear (Clear); Bilirubin Urine Negative (Negative); Blood Urine Negative (Negative); Color Urine Yellow (Yellow); Glucose Urine UA Negative (Negative); Ketones Urine 3+ mg/dL (Negative); Leukocyte Esterase Ur Negative LEU/UL (Negative); Nitrate Urine Negative (Negative); Protein Urine Negative (Negative); pH Urine 6.5 (5.0-9.0)
[2023-03-21 12:26] LABS: Add Urine Microscopic? NO
[2023-03-21 13:24] VITALS: BP 122/79; PULSE 99; RESP 16; O2SAT 98
--- NOTE | 2023-03-21 14:35 | ED.GENADULT ---
HPI - General Adult General Chief complaint: Nausea/Vomiting/Diarrhea Stated complaint: nausea and vomiting Time Seen by Provider: 03/21/23 11:29 History of Present Illness HPI narrative: Patient is a 22-year-old male who presents ER with nausea vomiting. This is his third day in a row being seen here. He reports each day he wakes up and he is feeling nauseous. He then starts vomiting and cannot stop it. He has tried drinking water but does not improve his symptoms. He has no antiemetics at home. He denies any recent marijuana usage. No abdominal discomfort or other complaints. Related Data Home Medications Medication Instructions Recorded Confirmed olanzapine 5 mg tablet (Zyprexa) 5 mg PO BID 01/26/22 03/13/22 quetiapine 200 mg tablet (Seroquel) 200 mg PO QHS 01/26/22 03/13/22 aprepitant 80 mg capsule See Rx Instructions .Route .COMPLEX 03/13/22 03/13/22 esketamine 84 mg (28 mg x 3) nasal See Rx Instructions .Route .COMPLEX 03/13/22 03/13/22 spray (Spravato) vilazodone 40 mg tablet 1 tablet PO DAILY 03/13/22 03/13/22 clonazepam 0.5 mg tablet 0.5 mg PO DAILY 11/09/22 Allergies Allergy/AdvReac Type Severity Reaction Status Date / Time haloperidol [From Haldol] Allergy Intermediate Muscle Verified 03/21/23 12:35 Spasms Review of Systems Review of Systems: All systems reviewed & are unremarkable except as noted in HPI and below Constitutional: Constitutional: Reports no additional constitutional complaints Cardiovascular: Cardiovascular: Reports no additional cardiovascular complaints Respiratory: Respiratory: Reports no additional respiratory complaints Gastrointestinal: Gastrointestinal: Denies abdominal pain, Denies diarrhea, Reports nausea and Reports vomiting Genitourinary: Genitourinary: Reports no additional male genitourinary complaints [facility] Past Medical History Medical History Anxiety Bacterial meningitis (2001) At age 4 months. Cyclic vomiting syndrome Suicide Tetrahydrocannabinol (THC) dependence Surgical History Surgical History No history of previous surgery Family History Family History Mother Hyperlipemia Father Hyperlipemia Social History Social History Social History: Surrogate decision maker: Donovan Chandler, . Code status: Full code. Smoking status: Current every day smoker Tobacco type: e-cigarettes/vaping Alcohol intake: current Drinks per week: 4 Alcohol use details: 5-10 drinks per month Substance use: former Substance use type: marijuana and other Other substance usage details: medical marijuana Last use: 01/16/2021 Living arrangements: alone Additional living arrangements comments: The patient lives in [place] with his family. He is a student at [employer]. Additional occupation/education comments: Student at [employer]. Gender identity (if verbalized by the patient): Male Spiritual care concerns: No Exam Narrative: GENERAL: Well-appearing, well-nourished, and in no acute distress. HEAD: Normocephalic, atraumatic. ENT: Mucous membranes moist. CHEST: Clear to auscultation. No respiratory distress. HEART: Regular rate and rhythm. Normal peripheral pulses. ABDOMEN: Soft, nontender, nondistended, normal active bowel sounds. EXTREMITIES: Normal range of motion. No edema. SKIN: Warm, dry, no rash. NEURO: Alert and oriented x3. PSYCH: Normal mood and affect. Course Course Emergency Course: Patient resting comfortably after metoclopramide and Benadryl. Discharged home with antiemetics and PPI. Vital Signs Vital signs: Vital Signs Temperature 97.2 F L 03/21/23 11:09 Pulse Rate 100 03/21/23 11:09 Respiratory Rate 20 03/21/23 11:09 Blood Pressure 126/61 03/21/23 11:09
[2023-03-21 15:14] VITALS: BP 117/74; PULSE 98; RESP 16; O2SAT 99
== END 2023-03-21 15:15 | disposition home or self-care (01) ==
PROVIDERS: Emergency Provider Emergency Medicine; PCP Student in an Organized Health Care Education/Training Program
DX: R11.2 Nausea with vomiting, unspecified (principal); F41.9 Anxiety disorder, unspecified; F17.290 Nicotine dependence, other tobacco product, uncomplicated
CPT/HCPCS: 36415; 80053; 81003; 83690; 85025; 96361; 96374; 96375; 99284; J1200; J2765; J7030

== ENCOUNTER 2023-03-22 07:13 | Emergency (ER) | payer OTHER, SELFPAY ==
[2023-03-22] MEDS: diphenhydrAMINE HCl INJ 50 MG/ML VIAL 25 MG IM (07:26)
[2023-03-22] MEDS: METOCLOPRAMIDE HCL INJ 10 MG/2 ML VIAL IM (07:26)
--- NOTE | 2023-03-22 07:34 | ED.ANXIETY ---
HPI - Anxiety General Chief Complaint: Abdominal Pain Stated Complaint: anxiety Time Seen by Provider: 03/22/23 07:17 History of Present Illness HPI narrative: 22-year-old male with daily presentations to the ER here presents with the same symptoms as he did the last few days, which is anxiety, nausea and vomiting, he does have a history of hyperemesis but he is reports that he has been trying to quit smoking marijuana. Denies any changes to his symptoms today. Related Data Home Medications Medication Instructions Recorded Confirmed olanzapine 5 mg tablet (Zyprexa) 5 mg PO BID 01/26/22 03/13/22 quetiapine 200 mg tablet (Seroquel) 200 mg PO QHS 01/26/22 03/13/22 aprepitant 80 mg capsule See Rx Instructions .Route .COMPLEX 03/13/22 03/13/22 esketamine 84 mg (28 mg x 3) nasal See Rx Instructions .Route .COMPLEX 03/13/22 03/13/22 spray (Spravato) vilazodone 40 mg tablet 1 tablet PO DAILY 03/13/22 03/13/22 clonazepam 0.5 mg tablet 0.5 mg PO DAILY 11/09/22 Allergies Allergy/AdvReac Type Severity Reaction Status Date / Time haloperidol [From Haldol] Allergy Intermediate Muscle Verified 03/21/23 12:35 Spasms Review of Systems Review of Systems: CONST: No fever. HEENT: No sore throat C/V: No chest pain RESP: No cough GI: Reports nausea, vomiting : No dysuria. M/S: No joint pain. SKIN: No rash. NEURO: [No headache or focal numbness or weakness] PSYCH: Anxiety PMFSH Past Medical History Medical History Anxiety Bacterial meningitis (2001) At age 4 months. Cyclic vomiting syndrome Suicide Tetrahydrocannabinol (THC) dependence Surgical History Surgical History No history of previous surgery Family History Family History Mother Hyperlipemia Father Hyperlipemia Social History Social History Social History: Surrogate decision maker: Donovan Chandler, father. Code status: Full code. Smoking status: Current every day smoker Tobacco type: e-cigarettes/vaping Alcohol intake: current Drinks per week: 4 Alcohol use details: 5-10 drinks per month Substance use: former Substance use type: marijuana and other Other substance usage details: medical marijuana Last use: 01/16/2021 Living arrangements: alone Additional living arrangements comments: The patient lives in [place] with his family. He is a student at [employer]. Additional occupation/education comments: Student at [employer]. Gender identity (if verbalized by the patient): Male Spiritual care concerns: No Exam Narrative: EXAMINATION OF ORGAN SYSTEMS/BODY AREAS: Constitutional: Vital signs per nursing GENERAL: Appears anxious, pacing the room with emesis bag, but otherwise does not appear ill HEAD: Normal with no signs of head trauma. EYES: EOMI, conjunctiva normal ENT: Hearing grossly intact LUNGS: Nonlabored breathing. HEART: Initially tachycardic ABD: [Soft], [nontender to palpation] EXT: Normal range of motion SKIN: [No rashes or lesions.] NEURO: [Alert and oriented x 3. No gross focal sensory or strength deficits.] PSYCH: Anxious affect Course Vital Signs Vital signs: Vital Signs Temperature 98.0 F 03/22/23 07:36 Pulse Rate 111 H 03/22/23 07:36 Respiratory Rate 20 03/22/23 07:36 Blood Pressure 130/86 03/22/23 07:36 Pulse Oximetry 99 03/22/23 07:36 Oxygen Delivery Room Air 03/22/23 07:36 Temperature 98.0 F 03/22/23 07:36 Pulse Rate 97 03/22/23 09:40 Respiratory Rate 16 03/22/23 09:40 Blood Pressure 154/90 H 03/22/23 09:40 Pulse Oximetry 100 03/22/23 09:40 Oxygen Delivery Room Air 03/22/23 07:36 MDM - Anxiety MDM Narrative Medical decision making narrative: 22-year-old male who presents here frequently for the same symptoms pres
[2023-03-22 07:36] VITALS: BP 130/86; PULSE 111; RESP 20; TEMP 36.7; O2SAT 99
[2023-03-22] MEDS: PROMETHAZINE HCL 25 MG/ML AMPUL 12.5 MG IM (09:30)
[2023-03-22 09:40] VITALS: BP 154/90; PULSE 97; RESP 16; O2SAT 100
== END 2023-03-22 09:40 | disposition home or self-care (01) ==
PROVIDERS: Emergency Provider Emergency Medicine; PCP Student in an Organized Health Care Education/Training Program
DX: F41.9 Anxiety disorder, unspecified (principal); R11.2 Nausea with vomiting, unspecified; F17.219 Nicotine dependence, cigarettes, with unspecified nicotine-induced disorders
CPT/HCPCS: 96372; 99284; J1200; J2550; J2765

== ENCOUNTER 2023-03-23 08:01 | Emergency (ER) | payer OTHER, SELFPAY ==
[2023-03-23 08:06] VITALS: BP 154/102; PULSE 101; RESP 24; TEMP 36.6; O2SAT 100
[2023-03-23 08:32] LABS: Basophils Absolute Auto 0.1 K/mm3 (0.0-0.1); Basophils Percent Auto 0.6 % (0.2-1.2); Eosinophils Absolute Auto 0.1 K/mm3 (0-0.3); Eosinophils Percent Auto 0.6 % (0-4.4); Hematocrit 45.7 % (42.0-52.0); Hemoglobin 15.6 g/dL (14.0-18.0); Immature Granulocyte Absolute 0.05 K/mm3 (0.00-0.031); Immature Granulocyte Percent A 0.6 % (0-0.5); Lymphocytes Absolute Auto 1.74 K/mm3 (0.9-3.2); Lymphocytes Percent Auto 21.3 % (18.3-44.2); Mean Corpuscular HGB Conc 34.1 g/dl (32-36); Mean Corpuscular Hemoglobin 28.6 pg (26-34); Mean Corpuscular Volume 83.7 fl (80-100); Mean Platelet Volume 9.2 fl (7.4-10.4); Monocytes Absolute Auto 0.5 K/mm3 (0.1-0.6); Monocytes Percent Auto 6.2 % (2.6-8.5); Neutrophils Absolute Auto 5.8 K/mm3 (1.3-6.7); Neutrophils Percent Auto 70.7 % (45.5-73.1); Platelet Count Result 317 k/mm3 (150-375); Red Blood Count 5.46 M/mm3 (4.6-6.20); Red Cell Distribution Width 13.5 % (11.5-14.5); White Blood Count 8.2 K/mm3 (4.5-10.0)
[2023-03-23 08:38] LABS: Alanine Aminotransferase 60 U/L (6-50); Albumin Level 5.3 g/dL (3.5-5.1); Alkaline Phosphatase 96 U/L (38-126); Anion Gap 19 mmol/L (8-16); Aspartate Amino Transferase 83 U/L (17-59); Bilirubin,Total 1.4 mg/dL (0.2-1.3); Blood Urea Nitrogen 11 mg/dL (9-20); Carbon Dioxide 17 mmol/L (22-30); Chloride 106 mmol/L (98-107); Estimated Glomerular Filt Rate > 60; Glucose 104 mg/dL (65-110); Lipase 74 U/L (23-300); Potassium 3.3 mmol/L (3.4-5.0); Sodium 142 mmol/L (137-145)
[2023-03-23 08:46] VITALS: BP 151/100; PULSE 107; RESP 21; O2SAT 99
[2023-03-23] MEDS: PROMETHAZINE HCL 25 MG/ML AMPUL 12.5 MG IV PUSH (08:59)
[2023-03-23] MEDS: SODIUM CHLORIDE 0.9% IV 2,000 ML 999 ML IV CONT (09:00)
[2023-03-23] MEDS: SODIUM CHLORIDE 0.9% IV 50 ML 150 ML (09:05)
[2023-03-23] MEDS: clonazePAM (*CRX) 0.5 MG TABLET PO (09:11)
[2023-03-23 09:38] VITALS: BP 150/90; PULSE 113; RESP 23
--- NOTE | 2023-03-23 09:41 | PC.NURSE ---
normal saline 50ml bag pulled to mix with phenergan 12.5mg and infused over [address] Mitchell/Clayton ScottRN
--- NOTE | 2023-03-23 09:57 | ED.NAVMDI ---
HPI - Nausea/Vomiting/Diarrhea General Chief complaint: Nausea/Vomiting/Diarrhea Stated complaint: Vomiting Time Seen by Provider: 03/23/23 08:39 History of Present Illness HPI Narrative: This is a 22-year-old male, with past history of anxiety and depression, who returns to the emergency department complaining of nausea, vomiting and anxiety. This is the fifth time in as many days that the patient has presented with the same symptoms. Today states his nausea and vomiting is primarily related to anxiety. He states he was unable to take his medications today due to vomiting. He complains of mild abdominal cramping but has no other complaints. Related Data Home Medications Medication Instructions Recorded Confirmed olanzapine 5 mg tablet (Zyprexa) 5 mg PO BID 01/26/22 03/13/22 quetiapine 200 mg tablet (Seroquel) 200 mg PO QHS 01/26/22 03/13/22 aprepitant 80 mg capsule See Rx Instructions .Route .COMPLEX 03/13/22 03/13/22 esketamine 84 mg (28 mg x 3) nasal See Rx Instructions .Route .COMPLEX 03/13/22 03/13/22 spray (Spravato) vilazodone 40 mg tablet 1 tablet PO DAILY 03/13/22 03/13/22 clonazepam 0.5 mg tablet 0.5 mg PO DAILY 11/09/22 Allergies Allergy/AdvReac Type Severity Reaction Status Date / Time haloperidol [From Haldol] Allergy Intermediate Muscle Verified 03/21/23 12:35 Spasms Review of Systems Review of Systems: CONSTITUTIONAL: Denies fever, chills, or sweats. CARDIOVASCULAR: Denies chest pain, palpitations, or edema. RESPIRATORY: Denies cough or dyspnea. GASTROINTESTINAL: Nausea and vomiting, abdominal cramping denies diarrhea. GENITOURINARY: Denies dysuria or hematuria. SKIN: Denies rash or itching. MUSCULOSKELETAL: Denies back pain, joint pain, or myalgia. NEUROLOGIC: Denies headache, numbness, dizziness, or weakness. PSYCHIATRIC: Denies anxiety or depression. Denies suicidal or homicidal ideations [facility] Past Medical History Medical History Anxiety Bacterial meningitis (2001) At age 4 months. Cyclic vomiting syndrome Suicide Tetrahydrocannabinol (THC) dependence Surgical History Surgical History No history of previous surgery Family History Family History Mother Hyperlipemia Father Hyperlipemia Social History Social History Social History: Surrogate decision maker: Donovan Chandler, father. Code status: Full code. Smoking status: Current every day smoker Tobacco type: e-cigarettes/vaping Alcohol intake: current Drinks per week: 4 Alcohol use details: 5-10 drinks per month Substance use: former Substance use type: marijuana and other Other substance usage details: medical marijuana Last use: 01/16/2021 Living arrangements: alone Additional living arrangements comments: The patient lives in [place] with his family. He is a student at [employer]. Additional occupation/education comments: Student at [employer]. Gender identity (if verbalized by the patient): Male Spiritual care concerns: No Exam Narrative: GENERAL: Well-developed, well-nourished, appears anxious. Retches loudly in the room HEAD: Normocephalic, atraumatic. EYES: PERRLA and EOMI. ENT: Nares clear, no rhinorrhea or epistaxis. Mucous membranes moist. Oropharynx without tonsillar hypertrophy exudate or other lesions. CHEST: Clear to auscultation. No respiratory distress. No wheezes rales or rhonchi HEART: Tachycardic with regular rhythm. No murmur heard. Normal peripheral pulses. ABDOMEN: Soft, nontender, nondistended, normal active bowel sounds. EXTREMITIES: Normal range of motion. No edema. SKIN: Warm, dry, no rash. NEURO: No focal deficits. Alert and oriented x3. PSYCH: Normal mood and affect. Course Course Emergency Course: 10:00 - C
[2023-03-23 10:27] LABS: Appearance Urine Clear (Clear); Bilirubin Urine Negative (Negative); Blood Urine Negative (Negative); Color Urine Yellow (Yellow); Glucose Urine UA Negative (Negative); Ketones Urine 4+ mg/dL (Negative); Leukocyte Esterase Ur Negative LEU/UL (Negative); Nitrate Urine Negative (Negative); Protein Urine Negative (Negative); Specific Grav Ur 1.014 (1.001-1.035); Urobilinogen Urine 0.2 mg/dL (<2.0)
[2023-03-23 10:30] VITALS: TEMP 36.8
[2023-03-23 10:31] LABS: Add Urine Microscopic? NO
== END 2023-03-23 10:32 | disposition home or self-care (01) ==
PROVIDERS: Emergency Provider Preventive Medicine Aerospace Medicine; PCP Student in an Organized Health Care Education/Training Program
DX: R11.15 Cyclical vomiting syndrome unrelated to migraine (principal); F41.9 Anxiety disorder, unspecified; F32.A Depression, unspecified; F17.290 Nicotine dependence, other tobacco product, uncomplicated
CPT/HCPCS: 36415; 80053; 81003; 83690; 85025; 96361; 96374; 99284; A9270; J2550; J7030

== ENCOUNTER 2023-09-13 04:32 | Emergency (ER) | payer OTHER, SELFPAY ==
[2023-09-13 04:32] VITALS: BP 156/97; PULSE 90; RESP 26; TEMP 36.7; O2SAT 99
[2023-09-13] MEDS: LORazepam INJ (*CRX) 2 MG/ML VIAL 1 MG IM (05:07)
--- NOTE | 2023-09-13 05:37 | ED.GENADULT ---
HPI - General Adult General Chief complaint: Anxiety Stated complaint: anxiety Time Seen by Provider: 09/13/23 04:56 History of Present Illness HPI narrative: Patient is a 22-year-old gentleman who presents emergency department with chief complaint of anxiety. The patient reports that his family is out of town and reports that he has been under lot of stress lately the patient denies suicidal or homicidal ideation reports that he has been hyperventilating this evening Related Data Home Medications Medication Instructions Recorded Confirmed olanzapine 5 mg tablet (Zyprexa) 5 mg PO BID 01/26/22 03/13/22 quetiapine 200 mg tablet (Seroquel) 200 mg PO QHS 01/26/22 03/13/22 aprepitant 80 mg capsule See Rx Instructions .Route .COMPLEX 03/13/22 03/13/22 esketamine 84 mg (28 mg x 3) nasal See Rx Instructions .Route .COMPLEX 03/13/22 03/13/22 spray (Spravato) vilazodone 40 mg tablet 1 tablet PO DAILY 03/13/22 03/13/22 clonazepam 0.5 mg tablet 0.5 mg PO DAILY 11/09/22 Allergies Allergy/AdvReac Type Severity Reaction Status Date / Time haloperidol [From Haldol] Allergy Intermediate Muscle Verified 03/21/23 12:35 Spasms Review of Systems Review of Systems: A 10 system review of systems was completed on the patient and is negative except for what is stated in the HPI. Nursing and ancillary documentation was reviewed. [facility] Past Medical History Medical History Anxiety Bacterial meningitis (2001) At age 4 months. Cyclic vomiting syndrome Suicide Tetrahydrocannabinol (THC) dependence Surgical History Surgical History No history of previous surgery Family History Family History Mother Hyperlipemia Father Hyperlipemia Social History Social History Social History: Surrogate decision maker: Donovan Chandler, father. Code status: Full code. Smoking status: Current every day smoker Tobacco type: e-cigarettes/vaping Alcohol intake: current Drinks per week: 4 Alcohol use details: 5-10 drinks per month Substance use: former Substance use type: marijuana and other Other substance usage details: medical marijuana Last use: 01/16/2021 Living arrangements: alone Additional living arrangements comments: The patient lives in [place] with his family. He is a student at [employer]. Additional occupation/education comments: Student at [employer]. Gender identity (if verbalized by the patient): Male Spiritual care concerns: No Exam Narrative: GENERAL: Well-appearing, well-nourished, and in no acute distress. HEAD: Normocephalic, atraumatic. EYES: PERRLA and EOMI. ENT: Nares clear, no rhinorrhea or epistaxis. Mucous membranes moist. NECK: Supple. CHEST: Clear to auscultation. No respiratory distress. HEART: Regular rate and rhythm. No murmur heard. Normal peripheral pulses. ABDOMEN: Soft, nontender, nondistended, normal active bowel sounds. EXTREMITIES: Normal range of motion. No edema. SKIN: Warm, dry, no rash. NEURO: No focal deficits. Alert and oriented x3. PSYCH: Anxious mood and affect. Course Vital Signs Vital signs: Vital Signs Temperature 36.7 C 09/13/23 04:32 Pulse Rate 90 09/13/23 04:32 Respiratory Rate 26 H 09/13/23 04:32 Blood Pressure 156/97 H 09/13/23 04:32 Pulse Oximetry 99 09/13/23 04:32 Oxygen Delivery Room Air 09/13/23 04:32 Temperature 36.7 C 09/13/23 04:32 Pulse Rate 90 09/13/23 04:32 Respiratory Rate 26 H 09/13/23 04:32 Blood Pressure 156/97 H 09/13/23 04:32 Pulse Oximetry 99 09/13/23 04:32 Oxygen Delivery Room Air 09/13/23 04:32 Medical Decision Making MDM Narrative Medical decision making narrative: Differential diagnosis includes anxiet
[2023-09-13 07:00] VITALS: BP 132/84; PULSE 72; RESP 15; O2SAT 99
== END 2023-09-13 07:01 | disposition home or self-care (01) ==
PROVIDERS: Emergency Provider Emergency Medicine; PCP Student in an Organized Health Care Education/Training Program
DX: F41.9 Anxiety disorder, unspecified (principal); F17.290 Nicotine dependence, other tobacco product, uncomplicated
CPT/HCPCS: 96372; 99283; J2060

== ENCOUNTER 2023-09-13 21:27 | Emergency (ER) | payer OTHER, SELFPAY ==
[2023-09-13 21:37] VITALS: BP 106/73; PULSE 92; RESP 26; TEMP 37; O2SAT 100
--- NOTE | 2023-09-13 22:37 | PC.NURSE ---
2235-PATIENT STATES HE FEELS BETTER AND WANTS TO GO. PER PATIENT REQUEST, VITAL SIGNS CHECKED. B/P-113/68; PULSE-88; O2 SATURATION-100%; RR - 20. ADVISED PATIENT TO RETURN IF NEEDED.
== END 2023-09-13 23:24 | disposition left against medical advice (07) ==
LOC: ANHED 22:46
PROVIDERS: PCP Student in an Organized Health Care Education/Training Program
DX: F41.9 Anxiety disorder, unspecified (principal)
CPT/HCPCS: 99199

== ENCOUNTER 2023-09-21 19:23 | Emergency (ER) | payer OTHER, SELFPAY ==
[2023-09-21 19:31] VITALS: BP 121/79; PULSE 106; RESP 26; TEMP 36.6; O2SAT 100
[2023-09-21 20:45] VITALS: BP 170/146; PULSE 108; RESP 25; TEMP 36.7; O2SAT 100
--- NOTE | 2023-09-21 21:05 | ECG_ITS ---
Measurements Intervals [place] Rate: 108 P: 74 ME: 147 QRS: 73 QRSD: 118 T: 46 QT: 367 QTc: 493 Interpretive Statements SINUS TACHYCARDIA INCOMPLETE RIGHT BUNDLE BRANCH BLOCK BASELINE ARTIFACT- I, II, III, AVR, AVL, AVF, V1-V6 ABNORMAL ECG COMPARED TO ECG 03/09/2023 13:32:55 SINUS TACHYCARDIA NOW PRESENT Electronically Signed On 09-22-2023 8:11:52 SPECIAL DUTY NURSE by Mansoor Carbajal D.O.
[2023-09-21] MEDS: LORazepam INJ (*CRX) 2 MG/ML VIAL 1 MG IM (22:19)
--- NOTE | 2023-09-21 22:32 | ED.ANXIETY ---
HPI - Anxiety General Chief Complaint: Anxiety Stated Complaint: anxiety attack Time Seen by Provider: 09/21/23 22:14 History of Present Illness HPI narrative: 22-year-old male with a history of anxiety, depression and PTSD reports for evaluation for panic and anxiety. Patient states his parents recently told him today that they are no longer supporting his mental health problems. Patient states this caused him to become very anxious and panic which is why he came to the ED today. He reports he was recently admitted to [facility] for anxiety and panic attacks and was discharged shortly after. He has a psychiatrist follows closely with. He has been taking his medications. He denies SI or HI. Denies other medical complaints. Related Data Home Medications Medication Instructions Recorded Confirmed olanzapine 5 mg tablet (Zyprexa) 5 mg PO BID 01/26/22 03/13/22 quetiapine 200 mg tablet (Seroquel) 200 mg PO QHS 01/26/22 03/13/22 aprepitant 80 mg capsule See Rx Instructions .Route .COMPLEX 03/13/22 03/13/22 esketamine 84 mg (28 mg x 3) nasal See Rx Instructions .Route .COMPLEX 03/13/22 03/13/22 spray (Spravato) vilazodone 40 mg tablet 1 tablet PO DAILY 03/13/22 03/13/22 clonazepam 0.5 mg tablet 0.5 mg PO DAILY 11/09/22 Allergies Allergy/AdvReac Type Severity Reaction Status Date / Time haloperidol [From Haldol] Allergy Intermediate Muscle Verified 09/21/23 19:24 Spasms Review of Systems Review of Systems: CONSTITUTIONAL: Denies fever, chills, or sweats. EYES: Denies visual changes, redness, or discharge. ENT: Denies rhinorrhea, congestion, sore throat, or otalgia. CARDIOVASCULAR: Denies chest pain, palpitations, or edema. RESPIRATORY: Denies cough or dyspnea. GASTROINTESTINAL: Denies abdominal pain, nausea, vomiting, or diarrhea. GENITOURINARY: Denies dysuria or hematuria. SKIN: Denies rash or itching. MUSCULOSKELETAL: Denies back pain, joint pain, or myalgia. NEUROLOGIC: Denies headache, numbness, or weakness. PSYCHIATRIC: See HPI [facility] Past Medical History Medical History Anxiety Bacterial meningitis (2001) At age 4 months. Cyclic vomiting syndrome Suicide Tetrahydrocannabinol (THC) dependence Surgical History Surgical History No history of previous surgery Family History Family History Mother Hyperlipemia Father Hyperlipemia Social History Social History Social History: Surrogate decision maker: Donovan Chandler, . Code status: Full code. Smoking status: Current every day smoker Tobacco type: e-cigarettes/vaping Alcohol intake: current Drinks per week: 4 Alcohol use details: 5-10 drinks per month Substance use: former Substance use type: does not use Other substance usage details: medical marijuana Last use: 01/16/2021 Living arrangements: alone Additional living arrangements comments: The patient lives in [place] with his family. He is a student at [employer]. Additional occupation/education comments: Student at [employer]. Gender identity (if verbalized by the patient): Male Spiritual care concerns: No Exam Narrative: GENERAL: Well-appearing, well-nourished, anxious appearing HEAD: Normocephalic, atraumatic. EYES: PERRLA and EOMI. ENT: Nares clear, no rhinorrhea or epistaxis. Mucous membranes moist. NECK: Supple. CHEST: Clear to auscultation. tachypneic. HEART: Regular rate and rhythm. No murmur heard. Normal peripheral pulses. ABDOMEN: Soft, nontender, nondistended, normal active bowel sounds. EXTREMITIES: Normal range of motion. No edema. SKIN: Warm, dry, no rash. NEURO: No focal deficits. Alert and oriented x3 PSYCH: anxious appearing, tachypneic. No SI or HI. No psychosis fo
[2023-09-21] MEDS: diphenhydrAMINE HCl CAP 25 MG CAPSULE 50 MG PO (23:02)
[2023-09-22 00:22] VITALS: BP 142/83; PULSE 96; RESP 24; O2SAT 95
[2023-09-22 01:55] VITALS: BP 132/76; PULSE 67; RESP 16; TEMP 36.7; O2SAT 99
== END 2023-09-22 01:56 | disposition home or self-care (01) ==
PROVIDERS: Emergency Provider Physician Assistant; PCP Student in an Organized Health Care Education/Training Program
DX: F41.9 Anxiety disorder, unspecified (principal); F32.A Depression, unspecified; F43.10 Post-traumatic stress disorder, unspecified; I45.10 Unspecified right bundle-branch block; R00.0 Tachycardia, unspecified
CPT/HCPCS: 93005; 96372; 99283; A9270; J2060

== ENCOUNTER 2023-10-18 13:59 | Emergency (ER) | payer OTHER, SELFPAY ==
--- NOTE | ~2023-10-18 | XR_ITS ---
XR chest 2V DATE: 10/18/2023 15:05 INDICATION: Chest pain. Sleep apnea. Panic attack. TECHNIQUE: AP and lateral views COMPARISON: 03/09/2023 portable AP chest at 1314 hours FINDINGS: Normal heart size. No hilar or mediastinal enlargement. No pulmonary infiltrate or consolid ation, pleural effusion or pulmonary vascular congestion or pneumothorax is detected. IMPRESSION: No active cardiopulmonary disease Reviewed, dictated and finalized at location L. INSPECTOR
--- NOTE | 2023-10-18 14:01 | ECG_ITS ---
Measurements Intervals [place] Rate: 77 P: DC: 0 QRS: 82 QRSD: 114 T: 63 QT: 378 QTc: 430 Interpretive Statements PROBABLY SINUS TACHYCARDIA/JUNCTIONAL TACHYCARDIA INCOMPLETE RIGHT BUNDLE BRANCH BLOCK [90+ ms QRS DURATION, TERMINAL R IN V1/V2, 40+ ms S IN I/aVL/V4/V5/V6] ABNORMAL ECG Electronically Signed On 10-19-2023 14:59:34 CLINICAL ASSISTANT by Trevor Hernandez M.D.
[2023-10-18 14:20] VITALS: BP 114/88; PULSE 108; RESP 35; TEMP 36.3; O2SAT 99
[2023-10-18 15:53] LABS: Basophils Percent Auto 0.3 % (0.2-1.2); Eosinophils Percent Auto 0.1 % (0-4.4); Hematocrit 42.9 % (42.0-52.0); Hemoglobin 15.1 g/dL (14.0-18.0); Immature Granulocyte Absolute 0.07 K/mm3 (0.00-0.031); Immature Granulocyte Percent A 0.5 % (0-0.5); Lymphocytes Absolute Auto 0.92 K/mm3 (0.9-3.2); Lymphocytes Percent Auto 6.7 % (18.3-44.2); Mean Corpuscular HGB Conc 35.2 g/dl (32-36); Mean Corpuscular Volume 82.3 fl (80-100); Mean Platelet Volume 9.3 fl (7.4-10.4); Monocytes Absolute Auto 0.8 K/mm3 (0.1-0.6); Neutrophils Absolute Auto 11.9 K/mm3 (1.3-6.7); Neutrophils Percent Auto 86.4 % (45.5-73.1); Platelet Count Result 297 k/mm3 (150-375); Red Blood Count 5.21 M/mm3 (4.6-6.20); Red Cell Distribution Width 12.7 % (11.5-14.5); White Blood Count 13.8 K/mm3 (4.5-10.0)
[2023-10-18 16:03] LABS: Alanine Aminotransferase 37 U/L (6-50); Alkaline Phosphatase 81 U/L (38-126); Anion Gap 17 mmol/L (8-16); Aspartate Amino Transferase 47 U/L (17-59); Bilirubin,Total 1.5 mg/dL (0.2-1.3); Blood Urea Nitrogen 13 mg/dL (9-20); Calcium 10.1 mg/dL (8.4-10.2); Carbon Dioxide 15 mmol/L (22-30); Chloride 106 mmol/L (98-107); Estimated CRCL calculation 129 ml/min; Estimated Glomerular Filt Rate > 60; Glucose 135 mg/dL (65-110); Lipase 48 U/L (23-300); Potassium 3.5 mmol/L (3.4-5.0); Sodium 138 mmol/L (137-145)
[2023-10-18 16:08] LABS: Partial Thromboplastin Time 25.5 SECONDS (22.3-36.8)
[2023-10-18 16:12] LABS: Troponin I < 0.012 ng/mL (0.000-0.034)
[2023-10-18 16:51] VITALS: BP 142/88; PULSE 96; RESP 18; O2SAT 100
[2023-10-18] MEDS: diphenhydrAMINE HCl CAP 25 MG CAPSULE PO (17:25)
[2023-10-18] MEDS: LORazepam INJ (*CRX) 2 MG/ML VIAL 0.5 MG IM (17:27)
--- NOTE | 2023-10-18 17:44 | ED.GENADULT ---
HPI - General Adult General Chief complaint: Anxiety Stated complaint: Chest pain, anxiety attack Time Seen by Provider: 10/18/23 16:32 Source: patient Mode of arrival: ambulatory Limitations: no limitations History of Present Illness HPI narrative: This is a 22-year-old male with PMH of anxiety, THC dependence, cyclical vomiting who presents to the ED with chief complaint of panic attack that started around 10:00 a.m. this morning. Patient reports that he had an episode of sleep apnea last night this morning that woke him up and sent him into a panic. Reports earlier he was having chest pain and started to hyperventilate. Patient reports that he has been very anxious but the chest pain has subsided. Reports he took Xanax and hydroxyzine as prescribed this morning for acute attacks but did not have any relief. Patient reports he last saw his psychiatrist 2 days ago that did not make any changes to his medications. He tells me he is on Seroquel, Viibryd, hydroxyzine, Xanax. Per chart review, patient has been to this ER thirteen times in the past year for crippling anxiety and cyclic vomiting. Related Data Home Medications Medication Instructions Recorded Confirmed olanzapine 5 mg tablet (Zyprexa) 5 mg PO BID 01/26/22 03/13/22 quetiapine 200 mg tablet (Seroquel) 200 mg PO QHS 01/26/22 03/13/22 aprepitant 80 mg capsule See Rx Instructions .Route .COMPLEX 03/13/22 03/13/22 esketamine 84 mg (28 mg x 3) nasal See Rx Instructions .Route .COMPLEX 03/13/22 03/13/22 spray (Spravato) vilazodone 40 mg tablet 1 tablet PO DAILY 03/13/22 03/13/22 clonazepam 0.5 mg tablet 0.5 mg PO DAILY 11/09/22 Allergies Allergy/AdvReac Type Severity Reaction Status Date / Time haloperidol [From Haldol] Allergy Intermediate Muscle Verified 09/21/23 19:24 Spasms Review of Systems Review of Systems: All systems as dictated in [facility] Past Medical History Medical History Anxiety Bacterial meningitis (2001) At age 4 months. Cyclic vomiting syndrome Suicide Tetrahydrocannabinol (THC) dependence Surgical History Surgical History No history of previous surgery Family History Family History Mother Hyperlipemia Father Hyperlipemia Social History Social History Social History: Surrogate decision maker: Donovan Chandler, father. Code status: Full code. Smoking status: Current every day smoker Tobacco type: e-cigarettes/vaping Alcohol intake: current Drinks per week: 4 Alcohol use details: 5-10 drinks per month Substance use: former Substance use type: does not use Other substance usage details: medical marijuana Last use: 01/16/2021 Living arrangements: alone Additional living arrangements comments: The patient lives in [place] with his family. He is a student at [employer]. Additional occupation/education comments: Student at [employer]. Gender identity (if verbalized by the patient): Male Spiritual care concerns: No Exam Narrative: GENERAL: Patient is rocking back and forth in the bed. Conversational and answering all questions. Hyperventilating in between conversation HEAD: Normocephalic, atraumatic. EYES: PERRLA and EOMI. ENT: Nares clear, no rhinorrhea or epistaxis. Mucous membranes moist. Oropharynx without tonsillar hypertrophy exudate or other lesions. NECK: Supple. No adenopathy or masses. CHEST: No respiratory distress. Clear to auscultation. No wheezes rales or rhonchi HEART: Regular rate and rhythm. No murmur heard. Normal peripheral pulses. ABDOMEN: Soft, nontender, nondistended, normal active bowel sounds. MSK: Normal range of motion. No edema. SKIN: Warm, dry, no rash. NEURO: Alert and oriented x3. No focal deficits. PSYCH:
--- NOTE | 2023-10-18 18:17 | ECG_ITS ---
Measurements Intervals [place] Rate: 107 P: 66 [place]: 163 QRS: 77 QRSD: 113 T: 56 QT: 339 QTc: 453 Interpretive Statements SINUS TACHYCARDIA POSSIBLE LEFT ATRIAL ENLARGEMENT [-0.1mV P-WAVE IN V1/V2] INCOMPLETE RIGHT BUNDLE BRANCH BLOCK [90+ ms QRS DURATION, TERMINAL R IN V1/V2, 40+ ms S IN I/aVL/V4/V5/V6] ABNORMAL ECG COMPARED TO ECG 10/18/2023 14:05:03 NO SIGNIFICANT CHANGES Electronically Signed On 10-19-2023 15:04:43 ECONOMIC DEVELOPMENT MANAGER by Trevor Hernandez M.D.
--- NOTE | 2023-10-18 19:11 | PC.NURSE ---
Report given to Key SMITH, all questions answered
[2023-10-18 19:26] VITALS: BP 128/80; PULSE 112; RESP 18; O2SAT 99
== END 2023-10-18 19:28 | disposition home or self-care (01) ==
PROVIDERS: Emergency Medicine; Emergency Provider Physician Assistant; PCP Student in an Organized Health Care Education/Training Program
DX: F41.0 Panic disorder [episodic paroxysmal anxiety] (principal); F17.290 Nicotine dependence, other tobacco product, uncomplicated; I45.10 Unspecified right bundle-branch block; R94.31 Abnormal electrocardiogram [ECG] [EKG]
CPT/HCPCS: 36415; 71046; 80053; 83690; 84484; 85025; 85610; 85730; 93005; 96372; 99284; A9270; J2060

== ENCOUNTER 2023-11-01 05:41 | Emergency (ER) | payer OTHER, SELFPAY ==
[2023-11-01 05:44] VITALS: BP 151/119; PULSE 116; RESP 26; TEMP 36.6; O2SAT 100
--- NOTE | 2023-11-01 06:01 | ED.GENADULT ---
HPI - General Adult General Chief complaint: Anxiety Stated complaint: panic attach for 24 hours Time Seen by Provider: 11/01/23 05:56 History of Present Illness HPI narrative: patient is a 22-year-old gentleman well known to our emergency department with history of anxiety that presents to the emergency department with chief complaint of panic attack. The patient reports that he has history of PTSD and panic attacks and this episodes been going on for more than 24 hours the patient states that he has been able to get himself to calm down but denies suicidal or homicidal ideation. Related Data Home Medications Medication Instructions Recorded Confirmed olanzapine 5 mg tablet (Zyprexa) 5 mg PO BID 01/26/22 03/13/22 quetiapine 200 mg tablet (Seroquel) 200 mg PO QHS 01/26/22 03/13/22 aprepitant 80 mg capsule See Rx Instructions .Route .COMPLEX 03/13/22 03/13/22 esketamine 84 mg (28 mg x 3) nasal See Rx Instructions .Route .COMPLEX 03/13/22 03/13/22 spray (Spravato) vilazodone 40 mg tablet 1 tablet PO DAILY 03/13/22 03/13/22 clonazepam 0.5 mg tablet 0.5 mg PO DAILY 11/09/22 Allergies Allergy/AdvReac Type Severity Reaction Status Date / Time haloperidol [From Haldol] Allergy Intermediate Muscle Verified 11/01/23 05:50 Spasms Review of Systems Review of Systems: A 10 system review of systems was completed on the patient and is negative except for what is stated in the HPI. Nursing and ancillary documentation was reviewed. [facility] Past Medical History Medical History Anxiety Bacterial meningitis (2001) At age 4 months. Cyclic vomiting syndrome Suicide Tetrahydrocannabinol (THC) dependence Surgical History Surgical History No history of previous surgery Family History Family History Mother Hyperlipemia Father Hyperlipemia Social History Social History Social History: Surrogate decision maker: Donovan Chandler, father. Code status: Full code. Smoking status: Current every day smoker Tobacco type: e-cigarettes/vaping Alcohol intake: current Drinks per week: 4 Alcohol use details: 5-10 drinks per month Substance use: former Substance use type: does not use Other substance usage details: medical marijuana Last use: 01/16/2021 Living arrangements: alone Additional living arrangements comments: The patient lives in [place] with his family. He is a student at [employer]. Additional occupation/education comments: Student at [employer]. Gender identity (if verbalized by the patient): Male Spiritual care concerns: No Exam Narrative: GENERAL: Well-appearing, well-nourished, and In acute anxiety stay. HEAD: Normocephalic, atraumatic. EYES: PERRLA and EOMI. ENT: Nares clear, no rhinorrhea or epistaxis. Mucous membranes moist. NECK: Supple. CHEST: Clear to auscultation. No respiratory distress. HEART: Regular rate and rhythm. No murmur heard. Normal peripheral pulses. ABDOMEN: Soft, nontender, nondistended, normal active bowel sounds. EXTREMITIES: Normal range of motion. No edema. SKIN: Warm, dry, no rash. NEURO: No focal deficits. Alert and oriented x3. PSYCH: anxious mood and affect Course Vital Signs Vital signs: Vital Signs Temperature 36.6 C 11/01/23 05:44 Pulse Rate 116 H 11/01/23 05:44 Respiratory Rate 26 H 11/01/23 05:44 Blood Pressure 151/119 H 11/01/23 05:44 Pulse Oximetry 100 11/01/23 05:44 Oxygen Delivery Room Air 11/01/23 05:44 Temperature 36.6 C 11/01/23 05:44 Pulse Rate 116 H 11/01/23 05:44 Respiratory Rate 26 H 11/01/23 05:44 Blood Pressure 151/119 H 11/01/23 05:44 Pulse Oximetry 100 11/01/23 05:44 Oxygen Delivery Room Air 11/01/23 05:44
[2023-11-01] MEDS: diphenhydrAMINE HCl CAP 25 MG CAPSULE PO (06:10)
[2023-11-01] MEDS: LORazepam INJ (*CRX) 2 MG/ML VIAL 1 MG IM ×2 (06:10→06:43)
--- NOTE | 2023-11-01 06:50 | PC.NURSE ---
Pt still very anxious and pacing room. This RN made EDP Dr. Rankin aware and provider putting in additional order.
--- NOTE | 2023-11-01 07:07 | PC.NURSE ---
Report given to LUIS English at this time.
[2023-11-01 07:31] VITALS: BP 136/70; PULSE 86; RESP 16; TEMP 36.7; O2SAT 100
== END 2023-11-01 07:35 | disposition home or self-care (01) ==
LOC: ANHED 06:12
PROVIDERS: Emergency Provider Emergency Medicine; PCP Student in an Organized Health Care Education/Training Program
DX: F41.0 Panic disorder [episodic paroxysmal anxiety] (principal); F43.10 Post-traumatic stress disorder, unspecified; F17.290 Nicotine dependence, other tobacco product, uncomplicated
CPT/HCPCS: 96372; 99284; A9270; J2060

== ENCOUNTER 2023-11-02 04:13 | Emergency (ER) | payer OTHER, SELFPAY ==
[2023-11-02] VITALS (8 sets, daily range): BP systolic 128–153; BP diastolic 86–112; PULSE 88–103; RESP 19–32; TEMP 36.4; O2SAT 98–100
--- NOTE | 2023-11-02 04:34 | ED.GENADULT ---
HPI - General Adult General Chief complaint: Anxiety Stated complaint: panic attack Time Seen by Provider: 11/02/23 04:26 History of Present Illness HPI narrative: Patient is a 22-year-old gentleman who presents emergency department with chief complaint of panic attack. Patient is well-known to the emergency department and frequently visits the emergency department for panic attacks. The patient has history of PTSD and panic attacks and reports that he was seen here yesterday was able to be under control and is being started having another panic attack. Patient denies suicidal or homicidal ideation the patient does report that he is trying to get into a residential facility but it may be several weeks Related Data Home Medications Medication Instructions Recorded Confirmed olanzapine 5 mg tablet (Zyprexa) 5 mg PO BID 01/26/22 03/13/22 quetiapine 200 mg tablet (Seroquel) 200 mg PO QHS 01/26/22 03/13/22 aprepitant 80 mg capsule See Rx Instructions .Route .COMPLEX 03/13/22 03/13/22 esketamine 84 mg (28 mg x 3) nasal See Rx Instructions .Route .COMPLEX 03/13/22 03/13/22 spray (Spravato) vilazodone 40 mg tablet 1 tablet PO DAILY 03/13/22 03/13/22 clonazepam 0.5 mg tablet 0.5 mg PO DAILY 11/09/22 Allergies Allergy/AdvReac Type Severity Reaction Status Date / Time haloperidol [From Haldol] Allergy Intermediate Muscle Verified 11/01/23 05:50 Spasms Review of Systems Review of Systems: A 10 system review of systems was completed on the patient and is negative except for what is stated in the HPI. Nursing and ancillary documentation was reviewed. [facility] Past Medical History Medical History Anxiety Bacterial meningitis (2001) At age 4 months. Cyclic vomiting syndrome Suicide Tetrahydrocannabinol (THC) dependence Surgical History Surgical History No history of previous surgery Family History Family History Mother Hyperlipemia Father Hyperlipemia Social History Social History Social History: Surrogate decision maker: Donovan Chandler, father. Code status: Full code. Smoking status: Current every day smoker Tobacco type: e-cigarettes/vaping Alcohol intake: current Drinks per week: 4 Alcohol use details: 5-10 drinks per month Substance use: former Substance use type: unknown Other substance usage details: medical marijuana Last use: 01/16/2021 Living arrangements: alone Additional living arrangements comments: The patient lives in [place] with his family. He is a student at [employer]. Additional occupation/education comments: Student at [employer]. Gender identity (if verbalized by the patient): Male Spiritual care concerns: No Exam Narrative: GENERAL: Well-appearing, well-nourished, and in no acute distress. HEAD: Normocephalic, atraumatic. EYES: PERRLA and EOMI. ENT: Nares clear, no rhinorrhea or epistaxis. Mucous membranes moist. NECK: Supple. CHEST: Clear to auscultation. No respiratory distress. HEART: Regular rate and rhythm. No murmur heard. Normal peripheral pulses. ABDOMEN: Soft, nontender, nondistended, normal active bowel sounds. EXTREMITIES: Normal range of motion. No edema. SKIN: Warm, dry, no rash. NEURO: No focal deficits. Alert and oriented x3. PSYCH: anxious mood and affect. Course Vital Signs Vital signs: Vital Signs Temperature 36.4 C 11/02/23 04:16 Pulse Rate 103 H 11/02/23 04:16 Respiratory Rate 25 H 11/02/23 04:16 Blood Pressure 128/112 H 11/02/23 04:16 Pulse Oximetry 98 11/02/23 04:16 Oxygen Delivery Room Air 11/02/23 04:16 Temperature 36.4 C 11/02/23 04:16 Pulse Rate 96 11/02/23 06:00 Respiratory Rate 23 H 11/02/23 06:00 Blood Pres
[2023-11-02] MEDS: diphenhydrAMINE HCl INJ 50 MG/ML VIAL 25 MG IM (04:36)
[2023-11-02] MEDS: LORazepam INJ (*CRX) 2 MG/ML VIAL IV PUSH (04:37)
--- NOTE | 2023-11-02 05:42 | PC.NURSE ---
pt noted to be standing outside in the hallway, pt states I am having a lot of anxiety, I need to get up and talk to people it helps . this rn educated pt on importance of staying in pt room. this rn explained to pt that he was able to ambulate with assistance using the call light for help. Pt verbalized understanding and ambulated into pt bed and vital equipment was placed back on pt.
[2023-11-02] MEDS: LORazepam INJ (*CRX) 2 MG/ML VIAL 1 MG IM (05:45)
== END 2023-11-02 06:30 | disposition home or self-care (01) ==
PROVIDERS: Emergency Provider Emergency Medicine; PCP Student in an Organized Health Care Education/Training Program
DX: F41.0 Panic disorder [episodic paroxysmal anxiety] (principal); F43.10 Post-traumatic stress disorder, unspecified; F41.9 Anxiety disorder, unspecified; F17.290 Nicotine dependence, other tobacco product, uncomplicated
CPT/HCPCS: 96372; 96374; 99284; J1200; J2060

== ENCOUNTER 2023-11-06 13:05 | Emergency (ER) | payer OTHER, SELFPAY ==
[2023-11-06 13:11] VITALS: BP 145/107; PULSE 104; RESP 28; TEMP 36.2; O2SAT 100
--- NOTE | 2023-11-06 14:42 | ECG_ITS ---
Measurements Intervals [place] Rate: 90 P: -14 WY: 127 QRS: 76 QRSD: 114 T: 55 QT: 365 QTc: 447 Interpretive Statements SINUS RHYTHM INCOMPLETE RIGHT BUNDLE BRANCH BLOCK BASELINE ARTIFACT- I, II, III, AVR, AVL, AVF BORDERLINE ECG COMPARED TO ECG 10/18/2023 18:37:06 SINUS RHYTHM NOW PRESENT Electronically Signed On 11-06-2023 15:08:37 SENIOR PROPERTY ACCOUNTANT by Mansoor Carbajal D.O.
--- NOTE | 2023-11-06 15:03 | PC.NURSE ---
This RN heard pt heavily breathing from nurses station. This RN approached pts room and found registration attempting to register pt. This RN attempted de-escalation techniques. Pt responded poorly to techniques and stated, I could be yelling and screaming right now, would you like that?
--- NOTE | 2023-11-06 15:15 | ED.ANXIETY ---
HPI - Anxiety General Chief Complaint: Anxiety Stated Complaint: anxiety Time Seen by Provider: 11/06/23 14:54 History of Present Illness HPI narrative: Patient is a 22-year-old male with a history of anxiety presenting with a panic attack. Patient has been seen here approximately 15 times in the last year for similar complaints. States that this particular panic attack started approximately 14 hours ago. He took his daily alprazolam which did not really help. States he was unable to take his other meds as he was too anxious and angry. States that his parents have given up on him which adds to his stress. Denies SI or HI. States that his psychiatrist recently increased his Cymbalta. Related Data Home Medications Medication Instructions Recorded Confirmed olanzapine 5 mg tablet (Zyprexa) 5 mg PO BID 01/26/22 03/13/22 quetiapine 200 mg tablet (Seroquel) 200 mg PO QHS 01/26/22 03/13/22 aprepitant 80 mg capsule See Rx Instructions .Route .COMPLEX 03/13/22 03/13/22 esketamine 84 mg (28 mg x 3) nasal See Rx Instructions .Route .COMPLEX 03/13/22 03/13/22 spray (Spravato) vilazodone 40 mg tablet 1 tablet PO DAILY 03/13/22 03/13/22 clonazepam 0.5 mg tablet 0.5 mg PO DAILY 11/09/22 Allergies Allergy/AdvReac Type Severity Reaction Status Date / Time haloperidol [From Haldol] Allergy Intermediate Muscle Verified 11/01/23 05:50 Spasms Review of Systems Review of Systems: All systems reviewed & are unremarkable except as noted in HPI and below PMFSH Past Medical History Medical History Anxiety Bacterial meningitis (2001) At age 4 months. Cyclic vomiting syndrome Suicide Tetrahydrocannabinol (THC) dependence Surgical History Surgical History No history of previous surgery Family History Family History Mother Hyperlipemia Father Hyperlipemia Social History Social History Social History: Surrogate decision maker: Donovan Chandler, father. Code status: Full code. Smoking status: Current every day smoker Tobacco type: e-cigarettes/vaping Alcohol intake: current Drinks per week: 4 Alcohol use details: 5-10 drinks per month Substance use: former Substance use type: marijuana Other substance usage details: medical marijuana Last use: 01/16/2021 Living arrangements: alone Additional living arrangements comments: The patient lives in [place] with his family. He is a student at [employer]. Additional occupation/education comments: Student at [employer]. Gender identity (if verbalized by the patient): Male Spiritual care concerns: No Exam Narrative: GENERAL: Hyperventilating, appears anxious and sweaty HEAD: Normocephalic, atraumatic. EYES: PERRLA and EOMI. ENT: Grossly unremarkable NECK: Supple. CHEST: No respiratory distress. HEART: Regular rate and rhythm. EXTREMITIES: Normal range of motion. SKIN: Warm, dry, no rash. NEURO: No focal deficits. Alert and oriented x3. PSYCH: Anxious, no SI or HI Course Vital Signs Vital signs: Vital Signs Temperature 97.1 F L 11/06/23 13:11 Pulse Rate 104 H 11/06/23 13:11 Respiratory Rate 28 H 11/06/23 13:11 Blood Pressure 145/107 H 11/06/23 13:11 Pulse Oximetry 100 11/06/23 13:11 Temperature 97.1 F L 11/06/23 13:11 Pulse Rate 104 H 11/06/23 13:11 Respiratory Rate 28 H 11/06/23 13:11 Blood Pressure 145/107 H 11/06/23 13:11 Pulse Oximetry 100 11/06/23 13:11 MDM - Anxiety MDM Narrative Medical decision making narrative: 22-year-old male presenting with a panic attack. Patient has been seen here numerous times in the last year for similar complaints. He was here several days ago with a panic attack. States that he receives Ativan and then he is
[2023-11-06] MEDS: LORazepam (*CRX) 1 MG TABLET PO (15:31)
--- NOTE | 2023-11-06 16:12 | PC.NURSE ---
Pt pacing in room, open mouth breathing hyperventilating. RN instructed pt to slow breathing down. Take slow deep breath in thru nose out of mouth. Pt states You don't understand, I've been trying to calm down for 12 days
[2023-11-06 17:21] VITALS: BP 147/88; PULSE 113; RESP 20; TEMP 36.7; O2SAT 98
--- NOTE | 2023-11-06 17:24 | PC.NURSE ---
Pt states he is feeling better after Ativan.
== END 2023-11-06 17:27 | disposition home or self-care (01) ==
PROVIDERS: Emergency Provider Emergency Medicine; PCP Student in an Organized Health Care Education/Training Program
DX: F41.0 Panic disorder [episodic paroxysmal anxiety] (principal); R06.4 Hyperventilation; F17.290 Nicotine dependence, other tobacco product, uncomplicated
CPT/HCPCS: 93005; 99283; A9270

== ENCOUNTER 2025-08-01 09:50 | Emergency (ER) | payer OTHER, SELFPAY ==
[2025-08-01] VITALS (7 sets, daily range): BP systolic 104–142; BP diastolic 40–93; PULSE 92–108; RESP 13–20; TEMP 36.6; O2SAT 97–100
--- OUTSIDE RECORDS SUMMARY | 2025-08-01 09:53 | XMS_ITS | Encounter Summary ---
Author Organization [facility] Address [address] [place] [address] Care Team Providers Care Mincemeat Maker Name Role Phone Marlo Alves DO Primary Care Provider + Marlo Alves DO Primary Care Provider + Encounter Details Date Type Department Care Team (Late st Contact Info) Description 09/15/2022 Agilet Message Enc [facility] Family & Internal Medicine [facility] [address] [place] [address] Marlo Alves DO [address] [place] [address] Medication Question Social History Tobacco Use Types Packs/Day Years Used Date Smoking Tobacco: Never Smokeless Tobacco: Never Comments:I use e cigs Alcohol Use Standard Drinks/Week Comments Yes 1.7 (1 standard drink = 0.6 oz p ure alcohol) 1-2 times a week PHQ-2 Answer Date Recorded Patient Health Questionnaire-2 Score 3 09/05/2022 Sex and Gender Information Value Date Recorded Sex Assigned at Male 03/09/2025 12:02 PM CDT Legal Sex Male 8:20 PM CDT Gender Identity Male 03/09/2025 12:02 PM CDT Sexual Orientation Not on file COVID-19 Exposure Response Date Recorded In the last 10 days, have yo u been in contact with someone who was confirmed or suspected to have Coronavirus/COVID-19? No / Unsure 09/18/2022 10:19 AM ECOMMERCE MANAGER documented as of this encounter Plan of Treatment Upcoming Encounters Date Type Department Care Team (Late st Contact Info) Description 09/10/2025 9:20 AM ECOMMERCE MANAGER Office Visit [facility] Family & Internal Medicine - [address] [address] Marlo Alves DO [address] [place] [address] documented as of this encounter Visit Diagnoses Not on filedocumented in this encounter Additional Health Concerns Assessment Noted Time PHQ-9 Depression Total Score: 4 09/05/19 9:26 AM ECOMMERCE MANAGER documented as of this encounter Care Teams Mincemeat Maker Relationship Specialty Start Date End Date Marlo Alves DO [address] [place] [address] PCP - General FAMILY PRACTICE 01/26/21 09/17/22 Marlo Alves DO [address] [place] [address] PCP - General FAMILY PRACTICE 09/18/22 documented as of this encounter
--- OUTSIDE RECORDS SUMMARY | 2025-08-01 09:53 | XMS_ITS | Clinical Summary ---
Author Organization [facility] Address [address] [place] [address] Care Team Providers Care Corporate Tax Manager Name Role Phone Marlo Alves Primary Care Provide r Allergies Active Allergy Reactions Criticality Noted Date Comments Haloperidol Muscle pain Medium 06/19/2021 Medications capsaicin (ZOSTRIX) 0.025 % cream Apply topically 2 (two) times a day 60 g 2 Active QUEtiapine (SEROquel) 50 mg tablet Take 50 mg by mouth nightly at bedtime 2 Active propranoloL (INDERAL) 10 mg tablet TAKE 1 TABLET BY MOUTH THREE TIMES DAILY DIRECTED 2 Active busPIRone (BUSPAR) 15 mg tablet TAKE 1 TABLET BY MOUTH THREE TIMES DAILY WITH MEALS 2 Active ondansetron ODT (ZOFRAN-ODT) 4 mg disintegrating tablet Take 1 tablet (4 mg total) by mouth every 8 (eight) hours as needed for nausea or vomiting 20 tablet 2 Active Active Problems Problem Noted Date Diagnosed Date Hay fever 05/17/2015 Bronchial asthma 05/17/2015 Urticaria, unspecified 05/17/2015 Medical History Medical History Date Comments Anxiety Cyclical vomiting Family History Medical History Relation Name Comments Asthma Other 1 Family history of asthma - (Added by TW Conv) Allergies Other 2 FHx: allergies - (Added by TW Conv) Relation Name Status Comments Other 1 Other 2 Social History Tobacco Use Types Packs/Day Years Used Date Smoking Tobacco: Never Smokeless Tobacco: Never Comments:vape Alcohol Use Standard Drinks/Week Comments Yes 0 (1 standard drink = 0.6 oz pur e alcohol) occasionally Personal Safety Answer Date Recorded Getting School Help Needed Not on file 10/29 Sex and Gender Information Value Date Recorded Sex Assigned at Not on file Legal Sex Male 5:56 AM RANGE RIDER Gender Identity Not on file Sexual Orientation Not on file Last Filed Vital Signs Vital Sign Reading Time Taken Comments Blood Pressure 121/83 01/12/2022 12:17 PM CDT Pulse 75 01/12/2022 12:17 PM CDT Temperature 37.1 C (98.7 F) 12/24/2021 8:45 AM CDT Respiratory Rate 20 01/12/2022 12:17 PM CDT Oxygen Saturation 99% 01/12/2022 12:17 PM CDT Inhaled Oxygen Concentration - - Weight 86.2 kg (190 lb) 01/12/2022 12:17 PM CDT Height 177.8 cm (5' 10) 01/12/2022 12:17 PM CDT Body Mass Index 27.26 01/12/2022 12:17 PM CDT Plan of Treatment Not on file Insurance [employer] OPEN ACCESS [employer] Care Teams Corporate Tax Manager Relationship Specialty Start Date End Date Marlo Alves DO [address] [place] [address] PCP - General 08/06/21
--- OUTSIDE RECORDS SUMMARY | 2025-08-01 09:53 | XMS_ITS | Encounter Summary ---
Author Organization [facility] Address [address] [place] [address] Care Team Providers Care Sawmill Relief Worker Name Role Phone Marlo Alves DO Primary Care Provider + Encounter Details Date Type Department Care Team (Late Contact Info) Description 07/15/2023 MyChart Message Enc [facility] Family & Internal [address] [address] Marlo Alves DO [address] [place] [address] Medication Question Social History Tobacco Use Types Packs/Day Years Used Date Smoking Tobacco: Never Passive Smoke Exposure: Never Smokeless Tobacco: Never Comments:I use e [...] PM CDT Sexual Orientation Not on file documented as of this encounter Plan of Treatment Upcoming Encounters Date Type Department Care Team (Late Contact Info) Description 09/10/2025 9:20 AM SURVIVAL EQUIPMENT REPAIRER Office Visit [facility] Family & Internal [address] [address] Marlo Alves DO [address] [place] [address], [place] [address] documented as of this encounter Visit Diagnoses Not on filedocumented in this encounter Additional Health Concerns Assessment Noted Time PHQ-9 Depression Total Score: 4 09/05/19 23 9:26 AM SURVIVAL EQUIPMENT REPAIRER documented as of this encounter Care Teams Sawmill Relief Worker Relationship Specialty Start Date End Date Marlo Alves DO [address] [place] [address] PCP - General FAMILY PRACTICE 09/18/22 documented as of this encounter
--- OUTSIDE RECORDS SUMMARY | 2025-08-01 09:53 | XMS_ITS | Encounter Summary ---
Author Organization [facility] Address [address] [place] [address] Care Team Providers Care Supervisor Car Installations Name Role Phone Marlo Alves DO Primary Care Provider + Encounter Details Date Type Department Care Team (Late Contact Info) Description 01/05/2024 Intellinotehart Message Enc [facility] Family & Internal Medicine [facility] [address] [place] [address] Marlo Alves DO [address] [place], [place] [phone] [facility] psychiatrist- Genny Chandler Social History Tobacco Use Types Packs/Day Years Used Date Smoking Tobacco: Never Passive Smoke Exposure: Never Smokeless Tobacco: Never Comments:I use e cigs Alcohol Use Standard Drinks/Week Comments Yes 3.3 (1 standard drink = 0.6 oz p ure alcohol) 1-2 times a week PHQ-2 Answer Date Recorded Patient Health Questionnaire-2 Score 2 09/28/2023 Sex and Gender Information Value Date Recorded Sex Assigned at Male 03/09/2025 12:02 PM CDT Legal Sex Male 8:20 PM CDT Gender Identity Male 03/09/2025 12:02 PM CDT Sexual Orientation Not on file documented as of this encounter Plan of Treatment Upcoming Encounters Date Type Department Care Team (Late Contact Info) Description 09/10/2025 9:20 AM CLOUD CONSULTANT Office Visit [facility] Family & Internal Medicine [facility] [address] [place] [address] Marlo Alves DO [facility] [place] [address] documented as of this encounter Visit Diagnoses Not on filedocumented in this encounter Additional Health Concerns Assessment Noted Time PHQ-9 Depression Total Score: 4 09/05/19 23 9:26 AM CLOUD CONSULTANT documented as of this encounter Care Teams Supervisor Car Installations Relationship Specialty Start Date End Date Marlo Alves DO [address] [place] [address] PCP - General FAMILY PRACTICE 09/18/22 documented as of this encounter
--- OUTSIDE RECORDS SUMMARY | 2025-08-01 09:53 | XMS_ITS | Encounter Summary ---
Author Organization [facility] Address [address] [place] [address] Care Team Providers Care Crystalizer Name Role Phone Marlo Alves DO Primary Care Provider + Encounter Details Date Type Department Care Team (Late st Contact Info) Description 09/25/2023 [employer], Inct Message Enc [facility] Family & Internal Medicine [facility] [address] [place] [address] Marlo Alves DO [address] [place], [place] [phone] Refill request and SNAP sleep study results Social History Tobacco Use Types Packs/Day Years [...] on file documented as of this encounter Functional Status * Over the past 2 weeks, how often have you been bothered by any of the following problems? Question Answer Date of Assessment Author Status Little interest or pleasure in doing things Several days 09/28/2023 11:37 AM Miriam Pineda MA Act tl Feeling down, depressed, or hopeless Several days 09/28/2023 11:37 AM IMPREGNATION OPERATOR Matt Troy MA Active Patient Health Questionnaire-2 Score 2 09/28/2023 11:37 AM IMPREGNATION OPERATOR Miriam Troy MA Active documented as of this encounter Plan of Treatment Upcoming Encounters Date Type Department Care Team (Late st Contact Info) Description 09/10/2025 9:20 AM IMPREGNATION OPERATOR Office Visit [facility] Family & Internal Medicine - [address] [address] Marlo Alves DO [facility] [place] [address] documented as of this encounter Visit Diagnoses Not on filedocumented in this encounter Additional Health Concerns Assessment Noted Time PHQ-9 Depression Total Score: 4 09/05/19 9:26 AM IMPREGNATION OPERATOR documented as of this encounter Care Teams Crystalizer Relationship Specialty Start Date End Date Marlo Alves DO [address] [place] [address] PCP - General FAMILY PRACTICE 09/18/22 documented as of this encounter
--- OUTSIDE RECORDS SUMMARY | 2025-08-01 09:53 | XMS_ITS | Clinical Summary ---
Author Organization [facility] Address [address] [place] [address] Phone Care Team Providers Care Orchid Hand Name Role Phone Chantel Salgado MD Primary Care Provider [phone] Allergies No known active allergies Medications hydrOXYzine HCL (ATARAX) 25 mg tablet Take 1 Tablet (25 mg) by mouth every 6 hours as needed for Anxiety or Insomnia. 20 Tablet 12/12/2020 Active ondansetron (ZOFRAN ODT) 4 mg Tablet, Rapid Dissolve Take 1 Tablet (4 mg) by mouth every 6 hours as needed for Nausea/Emesi s. 20 Tablet 12/12/2020 Active Active Problems Problem Noted Date Diagnosed Date Intractable vomiting with nausea 12/12/2020 Marijuana use 12/12/2020 Generalized anxiety disorder 12/12/2020 Social History Tobacco Use Types Packs/Day Years Used Date Smoking Tobacco: Never Assessed Sex and Gender Information Value Date Recorded Sex Assigned at Not on file Legal Sex Male 12:57 PM CDT Gender Identity Not on file Sexual Orientation Not on file Last Filed Vital Signs Vital Sign Reading Time Taken Comments Blood Pressure 108/71 12/12/2020 9:30 PM CDT Pulse 98 12/12/2020 9:30 PM CDT Temperature 36.5 C (97.7 F) 12/12/2020 1:27 PM CDT Respiratory Rate 19 12/12/2020 1:27 PM CDT Oxygen Saturation 96% 12/12/2020 9:30 PM CDT Inhaled Oxygen Concentration - - Weight 65.4 kg (144 lb 2.9 oz) 12/12/2020 1:27 P M CDT Height - - Body Mass Index - - Plan of Treatment Health Maintenance Due Date Last Done Comments HPV VACCINES (1 - Male 3-dose series) 2016 DTAP/TDAP/TD VACCINES (1 - Tdap) 2020 HEPATITIS B VACCINES (1 of 3 - 19+ 3-dose series) 11/02 INFLUENZA VACCINE (#1) 2025 Insurance [employer] C7 Advance Directives For more information, please contact: [phone] * Full Code (Latest Code Status on File) Date Activated Date Inactivated Comments 12/12/2020 9:10 PM 12/13/2020 12:22 AM Care Teams Orchid Hand Relationship Specialty Start Date End Date Chantel Salgado MD [address] [place] [id number] PCP - General Pediatrics 12/12/20
--- OUTSIDE RECORDS SUMMARY | 2025-08-01 09:53 | XMS_ITS | Encounter Summary ---
Author Organization [facility] Address [address] [place] [address] Care Team Providers Care Business Excellence Manager Name Role Phone Marlo Alves DO Primary Care Provider + Reason for Visit * Reason Onset Date Comments Question 03/21/2025 Encounter Details Date Type Department Care Team (Late st Contact Info) Description 03/21/2025 MyChart Message Enc [facility] Family & Internal Medicine [facility] [address] [place] [address] Marlo Alves DO [address] [place] [address] [place] Social History Tobacco Use Types Packs/Day Years Used Date Smoking Tobacco: Never Passive Smoke Exposure: Never Smokeless Tobacco: Never Comments:I use e cigs Alcohol Use Standard Drinks/Week Comments Yes 3.3 (1 standard drink = 0.6 oz p ure alcohol) 1-2 times a week PHQ-2 Answer Date Recorded Patient Health Questionnaire-2 Score 2 03/09/2025 Sex and Gender Information Value Date Recorded Sex Assigned at Male 03/09/2025 12:02 PM CDT Legal Sex Male 8:20 PM CDT Gender Identity Male 03/09/2025 12:02 PM CDT Sexual Orientation Not on file documented as of this encounter Progress Notes * Marlo Alves DO - 03/23/2025 12:57 PM CDT Sent Zepbound. documented in this encounter Plan of Treatment Upcoming Encounters Date Type Department Care Team (Late st Contact Info) Description 09/10/2025 9:20 AM GIS MAPPING TECHNICIAN Office Visit [facility] Family & Internal Medicine - [address] [address] Marlo Alves DO [address] [place] [address] documented as of this encounter Visit Diagnoses Diagnosis CASI (obstructive sleep apnea)- Primary Obstructive sleep apnea (adult) (pediatric) BMI 34.0-34.9,adult Body Mass Index 34.0-34.9, adult documented in this encounter Additional Health Concerns Assessment Noted Time PHQ-9 Depression Total Score: 5 01/10/20 24 10:20 AM CDT documented as of this encounter Care Teams Business Excellence Manager Relationship Specialty Start Date End Date Marlo Alves DO [address] [place] [address] PCP - General FAMILY PRACTICE 09/18/22 documented as of this encounter
--- OUTSIDE RECORDS SUMMARY | 2025-08-01 09:53 | XMS_ITS | Encounter Summary ---
Author Organization [facility] Address [address] [place] [address] Care Team Providers Care Etiologist Name Role Phone Marlo Alves DO Primary Care Provider + Encounter Details Date Type Department Care Team (Late Contact Info) Description 10/19/2023 MyChart Message Enc [facility] Family & Internal Medicine [facility] [address] [place] [address] Marlo Alves DO [address] [place], [place] [phone] CPAP Paperwork- Genny Chandler Social History Tobacco Use Types [...] (Late Contact Info) Description 09/10/2025 9:20 AM PSYCHIATRIC TECHNICIAN ASSISTANT Office Visit [facility] Family & Internal Medicine [facility] [address] [place] [address] Marlo Alves DO [facility] [place] [address] documented as of this encounter Visit Diagnoses Not on filedocumented in this encounter Additional Health Concerns Assessment Noted Time PHQ-9 Depression Total Score: 4 09/05/19 23 9:26 AM PSYCHIATRIC TECHNICIAN ASSISTANT documented as of this encounter Care Teams Etiologist Relationship Specialty Start Date End Date Marlo Alves DO [address] [place] [address] PCP - General FAMILY PRACTICE 09/18/22 documented as of this encounter
--- OUTSIDE RECORDS SUMMARY | 2025-08-01 09:53 | XMS_ITS | Clinical Summary ---
Author Organization [facility] Address [address] [place] [address] Care Team Providers Care Human Relations Manager Name Role Phone Marlo Alves DO Primary Care Provider + Allergies Active Allergy Reactions Criticality Noted Date Comments Haloperidol Anxiety,Other (see comment) High 01/26/2021 Tardive dyskinesia Medications QUEtiapine 200 MG tablet Take 1 tablet (200 mg total) by mouth daily. 2 Active SPRAVATO, 84 MG DOSE, 28 MG/DEVICE Solution Therapy Pack every 7 days. 2 Active propranolol (INDERAL) 20 MG tablet Take 1 tablet (20 mg total) by mouth 3 (three) times daily. 3 Active busPIRone (BUSPAR) 10 MG tablet Take 2 tablets (20 mg total) by mouth 3 (three) times daily. 3 Active DULoxetine (CYMBALTA) 30 MG capsule 4 Active ondansetron (ZOFRAN-ODT) 4 MG disintegrating tabletIndications:C annabinoid hyperemesis syndrome DISSOLVE 1 TO 2 TABLETS(4 TO 8 MG) ON THE TONGUE EVERY 8 HOURS NEEDED FOR NAUSEA 40 tablet 1 5 Active ABILIFY 5 MG tablet Take 1 tablet (5 mg total) by mouth daily. 5 Active divalproex ER (DEPAKOTE) 500 MG 24 hr tablet take 3 tablets by mouth daily at bedtime 5 Active LORazepam (ATIVAN) 1 MG tablet Take 1 tablet (1 mg total) by mouth 2 (two) times daily. 5 Active semaglutide-weight management (WEGOVY) 0.25 mg/dose injection (PEN)Indications:We ight Loss Inject 0.25 mg into the skin once a week. Indications: Weight Loss 2 mL 2 5 Active Active Problems Problem Noted Date Diagnosed Date Gastroesophageal reflux dise ase, unspecified whether esophagitis present 08/07/2024 CASI (obstructive sleep apnea) 08/07/2024 Cannabis dependence 09/28/2023 Oppositional defiant disorder 01/25/2021 Generalized anxiety disorder 12/12/2020 Overview (01/25/2021): Intractable vomiting with nausea 12/12/2020 Episodic mood disorder 03/28/2012 Overview (01/25/2021): Resolved Problems Problem Noted Date Diagnosed Date Resolved Date Marijuana use 12/12/2020 09/05/2022 Encounters Date Type Department Care Team Description 06/15/2025 Results Follow-Up [facility] Family & Internal Medicine [address] [phone] Marlo Alves, DO LIPID PANEL, COMPREHENSIVE METABOLIC PANEL, CBC W/DIFF AUTOMATED, TSH W/REFLEX 06/12/2025 Telephone [facility] & Internal [address] [address] Marlo Alves, DO Prior Authorization (Wegovy 0.25mg ) 06/10/2025 8:40 AM CDT Office Visit [facility] Family & Internal [address] [address] Marlo Alves, GERD (The patient presents for 3 month follow up ); Weight Problem (The patient states zepbound was denied by ins. The patient is wanting to try again or discuss alternatives. ) 06/10/2025 Travel 05/12/2025 Scan [facility] INFO SRVCS Scanned, [facility] from Last 3 Months Immunizations Immunization Administration Dates Next Due Fluzone (IIV3, Trivalent, 0. 5 ML Prefilled Syringe) 06/10/2025 Fluzone 6 Months+ Quad (0.5 mL Prefilled Syringe) 08/22/2023,09/05/2022 HPV GARDASIL 9-VALENT 09/05/2022,03/02/2022,07/0 09/2020 [employer] ([employer]) COVID-19 AD26 VACCINE 0.5 ML IM SUSP 12/10/2020 [employer] COVID-19 (12+) MRNA, LNP-S, PF, LLUVIA-SUCROSE, 30 MCG/0.3 ML (COMIRNATY) 03/09/2025 Tdap (Adacel) 03/03/2021 Family History Medical History Relation Comments Hyperlipidemia Father Alcohol Abuse Maternal Grandfather Anxiety Mother Relation Status Comments Father Alive Maternal Grandfather Mother Alive Social History Tobacco Use Types Packs/Day Years Used Date Smoking Tobacco: Never Passive Smoke Exposure: Never Smokeless Tobacco: Never Tobacco Cessation:Counseling Given: Yes Comments:I use e cigs Alcohol Use Standard [...] PM CDT Sexual Orientation Not on file Last Filed Vital Signs Vital Sign Reading Time Taken Comments Blood Pressure 112/84 06/10/2025 9:01 AM CDT Pulse 87 06/10/2025 9:01 AM CDT Temperature 36.3 C (97.3 F) 06/10/2025 9:01 AM CDT Respiratory Rate 16 06/10/2025 9:01 AM CDT Oxygen Saturation 98% 06/10/2025 9:01 AM CDT Inhaled Oxygen Concentration - - Weight 113.7 kg (250 lb 9.6 oz) 06/10/2025 9:01 AM CDT Height 177.8 cm (5' 10) 06/10/2025 9:01 AM CDT Body Mass Index 35.96 06/10/2025 9:01 AM CDT Plan of Treatment Upcoming Encounters Date Type Department Care Team (Late st Contact Info) Description 09/10/2025 9:20 AM RECEIVING SUPERVISOR Office Visit [facility] Family & Internal Medicine - [id number] [place] [address] JagjitSuzi jeffersonrebecca Sorto DO [address] [place] [address] Health Maintenance Due Date Last Done Comments Annual Physical 2004 Meningococcal B Vaccine (1 o f 2 - Standard) 2017 Hepatitis B Vaccines (1 of 3 - 19+ 3-dose series) 2020 COVID-19 Vaccine (4 - 2024-2 6 season) 2025 03/09/2025, 09/11/2021, 12/10/2020 DTaP, Tdap and Td Vaccines ( 2 - Td or Tdap) 03/03/2031 03/03/2021 Hepatitis C Completed 03/02/2022 HPV Vaccines Completed 09/05/2022, 03/02/2022, 03/03/2021 PHQ-2 (Physician [place]) Completed 03/09/2025 Influenza Adult Completed 06/10/2025, 08/22/2023, 09/05/2022 Hepatitis A Vaccines Aged Out No long er eligible based on patient's age to complete this topic Meningococcal Vaccine Aged Out No reginald siva eligible based on patient's age to complete this topic Pneumococcal Vaccine: Pediatrics (0 to 5 Years) and At-Risk Patients (6 to 49 Years) Aged Out No longer eligible b ased on patient's age to complete this topic RSV Immunizations Under 20 Months Aged Out No longer eligible b ased on patient's age to complete this topic Procedures Procedure Name Priority Date/Time Associated Diagnosis Comments TSH W/REFLEX Routine 06/10/2025 9:27 AM CDT Annual physical exam Screening for lipid disorders Screening for endocrine, metabolic and immunity disorder GENERAL HEALTH PANEL Routine 06/10/2025 9:27 AM CDT Annual physical exam Screening for lipid disorders Screening for endocrine, metabolic and immunity disorder COMPREHENSIVE METABOLIC PANEL Routine 06/10/2025 9:27 AM CDT Annual physical exam Screening for lipid disorders Screening for endocrine, metabolic and immunity disorder LIPID PANEL Routine 06/10/2025 9:27 AM CDT Annual physical exam Screening for lipid disorders Screening for endocrine, metabolic and immunity disorder COLLECTION VENOUS BLOOD VENIPUNCTURE Routine 06/10/2025 9:12 AM CDT Annual physical exam Screening for lipid disorders Screening for endocrine, metabolic and immunity disorder HEPATITIS C ANTIBODY Routine 03/02/2022 9:58 AM CDT Annual physical exam Need for hepatitis C screening test from Last 3 Months or Most Recently Relevant to Health Maintenance Results * TSH W/REFLEX (06/10/2025 9:27 AM CDT) TSH 2.374 0.358 - 3.740 uIU/ML 06/10/2025 3:56 PM CDT [facility] 06/10/2025 9:27 AM CDT us Marlo Alves DO LABORATORY Final Re sult [facility] [address] [place] [address], [place] [phone] * COMPREHENSIVE METABOLIC PANEL (06/10/2025 9:27 AM CDT) SODIUM S/P/B 144 136 - 145 MMOL/L 06/10/2025 3:56 PM CDT [facility] POTASSIUM S/P/B 4.7 3.5 - 5.1 MMOL/L 06/10/2025 3:56 PM CDT [facility] CHLORIDE S/P/B 104 98 - 107 MMOL/L 06/10/2025 3:56 PM CDT [facility] CO2 30.2 21 - 32 MMOL/L 06/10/2025 3:56 PM CDT [facility] GLUCOSE 92 70 - 99 MG/DL 06/10/2025 3:56 PM T [facility] BUN 8 7 - 18 MG/DL 06/10/2025 3:56 PM T [facility] CREATININE S/P/B 1.10 0.70 - 1.30 MG/DL 06/10/2025 3:56 PM CDT [facility] CALCIUM S/P/B 9.3 8.4 - 10.5 MG/DL 06/10/2025 3:56 PM T [facility] BILIRUBIN TOTAL S/P/B 0.5 0.2 - 1.0 MG/DL 06/10/2025 3:56 PM T [facility] ALKALINE PHOSPHATASE S/P/B 57 45 - 115 U/L 06/10/2025 3:56 PM [facility] AST 20 15 - 37 U/L 06/10/2025 3:56 PM CDT [facility] ALT 27 16 - 63 U/L 06/10/2025 3:56 PM [facility] TOTAL PROTEIN S/P/B 7.4 6.4 - 8.2 G/DL 06/10/2025 3:56 PM T [facility] ALBUMIN S/P/B 3.9 3.4 - 5.0 G/DL 06/10/2025 3:56 PM T [facility] ANION GAP 9.8 5 - 15 MMOL/L 06/10/2025 3:56 PM [facility] Comment:REFERENCE RANGE NOT ESTABLISHED OSMOLALITY (CALC) 296 MOSM/KG 025 3:56 PM [facility] Comment:REFERENCE RANGE NOT ESTABLISHED GFR ESTIMATE >90 >90 ML/MIN/1. 73 M2 06/10/2025 3:56 PM [facility] GFR NOTES GFR REFERENCE S: 06/10/2025 3:56 PM CDT [facility] Comment: THE ESTIMATED GFR IS CALCULATED USING THE 2020 CKD-EPI EQUATION. THE FOLLOWING CATEGORIES FOR GRADING RENAL FUNCTION ARE RECOMMENDED BY THE INTERNATIONAL SOCIETY OF NEPHROLOGY (KDIGO 2012 CLINICAL PRACTICE GUIDELINE). G1,NORMAL OR HIGH: >89 ml/min/1.73 m2 G2,MILDLY DECREASED: 60-89 ml/min/1.73 m2 G3A,MILDLY TO MODERATELY DECREASED: 45-59 ml/min/1.73 m2 G3B,MODERATELY TO SEVERELY DECREASED: 30-44 ml/min/1.73 m2 G4,SEVERELY DECREASED: 15-29 ml/min/1.73 m2 G5,KIDNEY FAILURE: <15 ml/min/1.73 m2 06/10/2025 9:27 AM CDT Marlo Alves DO LABORATORY Final Re sult [facility] [address] [place] [address], * (ABNORMAL) LIPID PANEL (06/10/2025 9:27 AM CDT) CHOLESTEROL 228(H) <200 MG/DL 06/10/2025 3:56 PM CDT [facility] TRIGLYCERIDES 195(H) <150 MG/DL 06/10/2025 3:56 PM CDT [facility] HDL 38(L) >40 MG/DL 06/10/2025 3:56 PM CDT [facility] LDL-C 151(H) <100 MG/DL 06/10/2025 3:56 PM CDT [facility] VLDL CALCULATION 39(H) 5 - 28 MG/DL 06/10/2025 3:56 PM CDT [facility] CHOL/HDL RATIO 6.0(H) 0.0 - 4.0 06/10/2025 3:56 PM CDT [facility] LDL/HDL 4.0(H) 0.41 - 2.13 06/10/2025 3:56 PM CDT [facility] NON HDL CHOLESTEROL 190(H) <140 MG/DL 06/10/2025 3:56 PM CDT [facility] 06/10/2025 9:27 AM CDT Marlo Alves DO LABORATORY Final Re s[facility] [address] [place] [address], * (ABNORMAL) CBC W/DIFF AUTOMATED (06/10/2025 9:27 AM CDT) WBC 5.95 4.00 - 10.80 x10'3/uL 06/10/2025 4:12 PM CDT [facility] RBC 5.63 4.50 - 6.10 x10'6/uL 06/10/2025 4:12 PM CDT [facility] HGB 16.4 13.0 - 18.0 G/DL 06/10/2025 4:12 PM CDT [facility] HCT 49.8 37.0 - 52.0 % 06/10/2025 4:12 PM CDT [facility] MCV 88.5 78.0 - 100.0 FL 06/10/2025 4:12 PM CDT [facility] MCH 29.1 27.0 - 31.0 PG 06/10/2025 4:12 PM CDT [facility] MCHC 32.9(L) 33.0 - 36.0 G/DL 06/10/2025 4:12 PM CDT [facility] RDW 12.6 11.5 - 14.5 % 06/10/2025 4:12 PM CDT [facility] PLT 224 150 - 350 x10'3/uL 06/10/2025 4:12 PM CDT [facility] MPV 10.1 7.4 - 10.4 FL 06/10/2025 4:12 PM CDT [facility] DIFFERENTIAL TYPE AUTOMATED DIFFERENTIAL 06/10/2025 4:12 PM CDT [facility] NEUTROPHILS % 64.0 % 06/10/2025 4:12 PM CDT [facility] LYMPHOCYTES % 22.7 % 06/10/2025 4:12 PM CDT [facility] MONOCYTES % 9.4 % 06/10/2025 4:12 PM CDT [facility] EOSINOPHILS % 3.2 % 06/10/2025 4:12 PM CDT [facility] BASOPHILS % 0.5 % 06/10/2025 4:12 PM CDT [facility] IMMATURE GRANS % 0.2 % 06/10/2025 4:12 PM CDT [facility] ABS. NEUTROPHILS 3.81 1.60 - 8.30 x10'3/uL 06/10/2025 4:12 PM CDT [facility] ABS. LYMPHOCYTES 1.35 0.80 - 4.70 x10'3/uL 06/10/2025 4:12 PM CDT [facility] ABS. MONOCYTES 0.56 0.00 - 1.50 x10'3/uL 06/10/2025 4:12 PM CDT [facility] ABS. EOSINOPHILS 0.19 0.00 - 0.40 x10'3/uL 06/10/2025 4:12 PM CDT [facility] ABS. BASOPHILS 0.03 0.00 - 0.20 x10'3/uL 06/10/2025 4:12 PM CDT [facility] ABS. IMMATURE GRANULOCYTES 0.01 0.00 - 0.03 x10'3/uL 06/10/2025 4:12 PM CDT [facility] 06/10/2025 9:27 AM CDT Marlo Alves DO LABORATORY Final Re sult Performing Organization Address City/[facility] Co de Phone Number -[facility] [address] [facility] [address] [place] [address], [place] [phone] * HEPATITIS C AB ([facility] ONLY) (03/02/2022 9:58 AM CDT) HEPATITIS C AB NON-REACTI VE NON-REACT JENNY 03/02/2022 7:27 PM CDT [facility] Comment: ANTIBODIES TO HCV NOT DETECTED. DOES NOT EXCLUDE THE POSSIBILITY OF EXPOSURE TO HCV. 03/02/2022 9:58 AM CDT Marlo Alves DO LABORATORY Final Re sult Performing Organization Address City/[facility] Co de Phone Number [facility] [address] [place] [address], [place] [phone] from Last 3 Months or Most Recently Relevant to Health Maintenance Insurance [facility] Care Teams Human Relations Manager Relationship Specialty Start Date End Date Marlo Alves DO [address] [place] [phone] PCP - General FAMILY PRACTICE 09/18/22
--- OUTSIDE RECORDS SUMMARY | 2025-08-01 09:53 | XMS_ITS | Clinical Summary ---
Author Organization [facility] Address [address] [place] [address] Care Team Providers Care Management Lecturer Name Role Phone Chantel Salgado MD Primary Care Provider [phone] Source Comments [facility],non-owned Affiliates and Associated Physician Practices is amultiple site organization consisting of ambulatory clinics and hospital sitesin [place], [place], [place] and [place]. This disclosure is being madepursuant to the Care Everywhere program and may not contain all information available regarding this patient. Last updated 18.[facility] Allergies No known active allergies Medications * This document contains information received from the source organization and may not represent a complete record from that organization. * Be aware that medications may not be up to date on this document. Alwaysverify current medications with the patient. sertraline (ZOLOFT) 50 MG tablet Take 1 Tab by mouth once daily 30 Tab 2 12/06/2015 Active loratadine (CLARITIN) 10 MG tablet Take 10 mg by mouth once daily Active sertraline (ZOLOFT) 50 MG tablet Take 1 Tab by mouth once daily 30 Tab 2 02/21/2017 Active Active Problems Problem Noted Date Diagnosed Date Anxiety state 06/19/2012 Overview (06/03/2015): Episodic mood disorder 03/28/2012 Overview (06/03/2015): Anxiety disorder Oppositional defiant disorder Family History Medical History Relation Name Comments Hyperlipidemia Father Anxiety Disorder Mother Depression Mother Hyperlipidemia Mother Relation Name Status Comments Father Alive Mother Alive Social History Tobacco Use Types Packs/Day Years Used Date Smoking Tobacco: Never Smokeless Tobacco: Never Alcohol Use Standard Drinks/Week Comments No 0 (1 standard drink = 0.6 oz pur e alcohol) Sex and Gender Information Value Date Recorded Sex Assigned at Not on file Legal Sex Male 3:30 PM CDT Gender Identity Not on file Sexual Orientation Not on file Last Filed Vital Signs Vital Sign Reading Time Taken Comments Blood Pressure 118/70 01/01/2018 3:35 PM CDT Pulse 88 01/01/2018 3:35 PM CDT Temperature 37 C (98.6 F) 01/01/2018 3:35 PM CDT Respiratory Rate 16 01/01/2018 3:35 PM CDT Oxygen Saturation 98% 01/01/2018 3:35 PM CDT Inhaled Oxygen Concentration - - Weight 77.6 kg (171 lb) 01/01/2018 3:35 PM CDT Height 175.3 cm (5' 9) 01/01/2018 3:35 PM CDT Body Mass Index 25.25 01/01/2018 3:35 PM CDT Plan of Treatment Health Maintenance Due Date Last Done Comments HIV SCREENING 2016 HPV VACCINE (1 - Male 3-dose series) 2016 MENINGOCOCCAL (Group B) VACC INE SHARED DECISION-MAKING (1 of 2 - Standard) 2017 HEPATITIS C SCREENING 11/21/2019 DTAP/TDAP/TD VACCINES (1 - Tdap) 2020 HEPATITIS B VACCINE (1 of 3 - 19+ 3-dose series) 2020 DEPRESSION SCREENING 09/03/2024 COVID-19 VACCINE (1 - 2024-2 6 season) 2025 INFLUENZA VACCINE (#1) 2025 ZOSTER VACCINE (1 of 2) 11/26/2051 HIB VACCINE Aged Out No longer eligi ble based on patient's age to complete this topic MENINGOCOCCAL GROUPS A/C/Y/W VACCINE Aged Out No longer eligible b ased on patient's age to complete this topic PNEUMOCOCCAL VACCINE Aged Out No long er eligible based on patient's age to complete this topic Insurance [employer] ANTHEM ANTHEM Care Teams Management Lecturer Relationship Specialty Start Date End Date Chantel Salgado MD [address] [place] [address] PCP - General Pediatrics 07/17/12
--- OUTSIDE RECORDS SUMMARY | 2025-08-01 09:53 | XMS_ITS | Encounter Summary ---
Author Organization [facility] Address [address] [place] [address] Care Team Providers Care Barrel Bridge Assembler Name Role Phone Marol Alves DO Primary Care Provider + Encounter Details Date Type Department Care Team (Latest Contact Info) Description 06/15/2025 Results Follow-Up [facility] Family & Internal [address] [address] Marlo Alves DO [address] [place] [id number] LIPID PANEL, COMPREHENSIVE METABOLIC PANEL, CBC W/DIFF AUTOMATED, TSH W/REFLEX Social History Tobacco Use Types Packs/Day Years [...] Upcoming Encounters Date Type Department Care Team ( st Contact Info) Description 09/10/2025 9:20 AM WELDING SUPERVISOR Office Visit [facility] Family & Internal [address] [address] Marlo Alves DO [address] [place] [address] documented as of this encounter Visit Diagnoses Not on filedocumented in this encounter Additional Health Concerns Assessment Noted Time PHQ-9 Depression Total Score: 5 01/10/20 24 10:20 AM CDT documented as of this encounter Care Teams Barrel Bridge Assembler Relationship Specialty Start Date End Date Marlo Alves DO [address] [place] [phone] PCP - General FAMILY PRACTICE 09/18/22 documented as of this encounter
[2025-08-01] MEDS: SODIUM CHLORIDE 0.9% IV 1,000 ML 999 ML IV CONT (10:35)
[2025-08-01] MEDS: PROMETHAZINE HCL 25 MG/ML AMPUL 12.5 MG IV PUSH (10:36)
[2025-08-01] MEDS: diazePAM INJ (*CRX) 10 MG/2 ML SYRINGE 5 MG IV PUSH (10:37)
[2025-08-01 10:38] LABS: Hematocrit 48.7 % (42.0-52.0); Hemoglobin 17.2 g/dL (14.0-18.0); Immature Granulocyte Percent A 0.4 % (0-0.5); Lymphocytes Absolute Auto 1.47 K/mm3 (0.9-3.2); Mean Corpuscular HGB Conc 35.3 g/dl (32-36); Mean Corpuscular Hemoglobin 28.9 pg (26-34); Mean Corpuscular Volume 81.8 fl (80-100); Nucleated Red Blood Cells Absolute Auto 0.000 K/mm3 (0.0-0.012); Nucleated Red Blood Cells Perc 0.0 % (0.0-0.2); Platelet Count Result 330 k/mm3 (150-375); Red Blood Count 5.95 M/mm3 (4.6-6.20); White Blood Count 11.1 K/mm3 (4.5-10.0)
[2025-08-01 10:52] LABS: Alanine Aminotransferase 51 U/L (6-50); Albumin Level 5.1 g/dL (3.5-5.1); Alkaline Phosphatase 63 U/L (38-126); Anion Gap 16 mmol/L (4-12); Aspartate Amino Transferase 68 U/L (17-59); Bilirubin,Total 1.2 mg/dL (0.2-1.3); Blood Urea Nitrogen 12 mg/dL (9-20); Calcium 9.9 mg/dL (8.4-10.2); Carbon Dioxide 25 mmol/L (22-30); Chloride 93 mmol/L (98-107); Estimated CRCL calculation 115 ml/min; Estimated Glomerular Filt Rate > 60; Glucose 110 mg/dL (65-110); Lipase 43 U/L (23-300); Potassium 3.4 mmol/L (3.4-5.0); Sodium 134 mmol/L (137-145); Total Protein 8.8 g/dL (6.3-8.2)
--- NOTE | 2025-08-01 12:51 | ED.GENADULT ---
HPI - General Adult General Chief complaint: Anxiety Stated complaint: Panic Attack Time Seen by Provider: 08/01/25 09:57 History of Present Illness HPI narrative: patient is a 24-year-old male who presents ER with nausea vomiting and anxiety. He did have some cannabis this morning and has history of cyclic vomiting. No chest pain or chest pressure. He is having trouble keeping down his home psychiatric medication Related Data Home Medications ?Medication ?Instructions ?Recorded ?Confirmed ?Last Taken ?Type olanzapine 5 mg tablet (Zyprexa) 5 mg PO BID 01/26/22 03/13/22 Unknown History quetiapine 200 mg tablet (Seroquel) 200 mg PO QHS 01/26/22 03/13/22 Unknown History aprepitant 80 mg capsule See Rx Instructions .Route .COMPLEX 03/13/22 03/13/22 Unknown History esketamine 84 mg (28 mg x 3) nasal See Rx Instructions .Route .COMPLEX 03/13/22 03/13/22 Unknown History spray (Spravato) vilazodone 40 mg tablet 1 tablet PO DAILY 03/13/22 03/13/22 Unknown History clonazepam 0.5 mg tablet 0.5 mg PO DAILY 11/09/22 Unknown History Allergies Allergy/AdvReac Type Severity Reaction Status Date / Time haloperidol (From Haldol) Allergy Intermediate Muscle Verified 08/01/25 09:52 Spasms Review of Systems Review of Systems: All systems reviewed & are unremarkable except as noted in HPI and below Constitutional: Constitutional: Reports no additional constitutional complaints ENT: Reports system reviewed and no additional complaints, except as documented Cardiovascular: Cardiovascular: Reports no additional cardiovascular complaints Gastrointestinal: Gastrointestinal: Reports no additional gastrointestinal complaints Genitourinary: Genitourinary: Reports no additional male genitourinary complaints FOR[facility]LY [facility], [facility] Past Medical History Medical History Anxiety Bacterial meningitis (2001) At age 4 months. Cyclic vomiting syndrome Suicide Tetrahydrocannabinol (THC) dependence Surgical History Surgical History No history of previous surgery Family History Family History Mother Hyperlipemia Father Hyperlipemia Social History Social History Social History: Surrogate decision maker: Donovan Chandler, father. Code status: Full code. Smoking status: Current every day smoker Tobacco type: e-cigarettes/vaping Alcohol intake: current Drinks per week: 4 Alcohol use details: 5-10 drinks per month Substance use: former Substance use type: marijuana Other substance usage details: medical marijuana Last use: 01/16/2021 Living arrangements: alone Additional living arrangements comments: The patient lives in [place] with his family. He is a student at [employer]. Additional occupation/education comments: Student at [employer]. Gender identity (if verbalized by the patient): Male Spiritual care concerns: No Exam Narrative: GENERAL: Well-appearing, well-nourished, and in no acute distress. HEAD: Normocephalic, atraumatic. EYES: PERRL and EOMI. ENT: Mucous membranes moist. CHEST: Clear to auscultation. No respiratory distress. HEART: Regular rate and rhythm. Normal peripheral pulses. ABDOMEN: Soft, nontender, nondistended. EXTREMITIES: Normal range of motion. No edema. SKIN: Warm, dry, no rash. NEURO: Alert and oriented x3. PSYCH: Normal mood and affect. Course Course Emergency Course: patient feels much better after Valium and Phenergan. Appropriate for discharge home. Vital Signs Vital signs: Vital Signs Temperature 97.9 F 08/01/25 09:57 Pulse Rate 92 08/01/25 09:57 Respiratory Rate 16 08/01/25 09:57 Blood Pressure 139/93 H 08/01/25 09:57 Pulse Oximetry 100 08/01/25 09:57 Oxygen Delivery Room Air 08/01/25 09:57 Temperature 97.9 F 08/01/25 09:57 Pulse Rate 108 H 08/01/25 12:15 Respiratory Rate 20 08/01/25 12:15 Blood Pressure 108/40 L 08/01/25 12:15 Pulse Oximetry 97 08/01/25 12:15 Oxygen Delivery Room Air 08/01/25 09:57 Medical Decision Making Differential Diagnosis Differential Diagnosis: Small-bowel obstruction, cyclic vomiting syndrome, panic attack, gastroenteritis Vital Signs Vital Signs: Vital Signs Temperature 97.9 F 08/01/25 09:57 Pulse Rate 92 08/01/25 09:57 Respiratory Rate 16 08/01/25 09:57 Blood Pressure 139/93 H 08/01/25 09:57 Pulse Oximetry 100 08/01/25 09:57 Oxygen Delivery Room Air 08/01/25 09:57 Temperature 97.9 F 08/01/25 09:57 Pulse Rate 108 H 08/01/25 12:15 Respiratory Rate 20 08/01/25 12:15 Blood Pressure 108/40 L 08/01/25 12:15 Pulse Oximetry 97 08/01/25 12:15 Oxygen Delivery Room Air 08/01/25 09:57 Lab Data Lab results reviewed: Yes I reviewed the patient's lab results. 08/01/25 10:33 08/01/25 10:33 Labs: Lab Results 08/01/25 Range/Units 10:33 WBC 11.1 H (4.5-10.0) K/mm3 RBC 5.95 (4.6-6.20) M/mm3 Hgb 17.2 (14.0-18.0) g/dL Hct 48.7 (42.0-52.0) % MCV 81.8 (80-100) fl MCH 28.9 (26-34) pg MCHC 35.3 (32-36) g/dl RDW 12.6 (11.5-14.5) % Plt Count 330 (150-375) k/mm3 MPV 9.4 (7.4-10.4) fl Immature Gran % (Auto) 0.4 (0-0.5) % Neut % (Auto) 73.8 H (45.5-73.1) % Lymph % (Auto) 13.2 L (18.3-44.2) % [place] % (Auto) 11.8 H (2.6-8.5) % Eos % (Auto) 0.4 (0-4.4) % Baso % (Auto) 0.4 (0.2-1.2) % Lymph # (Auto) 1.47 (0.9-3.2) K/mm3 [place] # (Auto) 1.3 H (0.1-0.6) K/mm3 Eos # (Auto) 0.1 (0-0.3) K/mm3 Baso # (Auto) 0.1 (0.0-0.1) K/mm3 Abs Immat Gran (auto) 0.05 H (0.00-0.031) K/mm3 Absolute Neuts (auto) 8.2 H (1.3-6.7) K/mm3 Absolute Nucleated RBC 0.000 (0.0-0.012) K/mm3 Nucleated RBC % 0.0 (0.0-0.2) % Sodium 134 L (137-145) mmol/L Potassium 3.4 (3.4-5.0) mmol/L Chloride 93 L (98-107) mmol/L Carbon Dioxide 25 (22-30) mmol/L Anion Gap 16 H (4-12) mmol/L BUN 12 (9-20) mg/dL Creatinine 1.11 (0.7-1.3) mg/dL Estim Creat Clear Calc 115 ml/min Estimated GFR > 60 (59 - ) Glucose 110 (65-110) mg/dL Calcium 9.9 (8.4-10.2) mg/dL Total Bilirubin 1.2 (0.2-1.3) mg/dL AST 68 H (17-59) U/L ALT 51 H (6-50) U/L Alkaline Phosphatase 63 (38-126) U/L Total Protein 8.8 H (6.3-8.2) g/dL Albumin 5.1 (3.5-5.1) g/dL Lipase 43 (23-300) U/L Discharge Plan Discharge Clinical Impression: Cyclic vomiting syndrome, Anxiety Patient Disposition: Home Condition: Stable Instructions: Anxiety (ED), Cyclic Vomiting Syndrome (ED) Additional Instructions: Return to the emergency department if you develop severe abdominal pain, severe nausea and vomiting to the point where you are unable to keep down fluids, if you develop chest pain or difficulty breathing, blood in your stool, dizziness or fainting, or if you develop any other new or concerning symptoms as these could be signs of more serious medical illness. Try to stay well hydrated. Patient Language: Italian Prescriptions: New promethazine 12.5 mg tablet 12.5 mg PO TID PRN (Reason: nausea and vomiting) Qty: 20 0RF No Action clonazepam 0.5 mg tablet 0.5 mg PO DAILY quetiapine [Seroquel] 200 mg tablet 200 mg PO QHS olanzapine [Zyprexa] 5 mg tablet 5 mg PO BID vilazodone 40 mg tablet 1 tablet PO DAILY Spravato 84 mg (28 mg x 3) spray,non-aerosol See Rx Instructions .ROUTE .COMPLEX Rx Instructions: 3 spray intranasally each nostril twice weekly aprepitant 80 mg capsule See Rx Instructions .ROUTE .COMPLEX Rx Instructions: 1 cap orally twice weekly capsaicin 0.025 % cream 1 applic topical BID Qty: 25 0RF Rx Instructions: apply to abdomen; do not wash area for at least 30 min after application. Do not touch eye or other sensitive areas ondansetron 4 mg tablet,disintegrating 4 mg PO Q8H PRN (Reason: nausea and vomiting) Qty: 14 0RF promethazine 12.5 mg tablet 12.5 mg PO BID PRN (Reason: nausea and vomiting) Qty: 14 0RF Rx Instructions: 3 doses during day; last dose no later than 4 hr before bedtime cyclobenzaprine 10 mg tablet 10 mg PO BID PRN (Reason: muscle spasm) Qty: 14 0RF ondansetron 4 mg tablet,disintegrating 4 mg PO Q6H PRN (Reason: nausea and vomiting) Qty: 10 0RF pantoprazole 20 mg tablet,delayed release (DR/EC) 20 mg PO HS Qty: 14 0RF Follow-up/Referrals: Long,DO Marlo [Primary Care Provider] - 1 Week
== END 2025-08-01 13:07 | disposition home or self-care (01) ==
PROVIDERS: Emergency Provider Emergency Medicine; PCP Student in an Organized Health Care Education/Training Program
DX: R11.15 Cyclical vomiting syndrome unrelated to migraine (principal); F41.9 Anxiety disorder, unspecified; F17.290 Nicotine dependence, other tobacco product, uncomplicated; Z79.899 Other long term (current) drug therapy
CPT/HCPCS: 36415; 80053; 83690; 85025; 96361; 96374; 96375; 99284; J2550; J3360; J7030